=== PATIENT | female | born 1930 | race American Indian/Alaskan Native ===

== ENCOUNTER 2018-09-08 13:43 | Inpatient (IN) | payer MEDICARE, OTHER ==
[2018-09-08] MEDS ORDERED: Sodium Chloride 0.9% 1,000 ML ONE (14:19)
[2018-09-08] MEDS ORDERED: Sodium Chloride 0.9% 1,000 ML IV ONE ×2 (14:20→16:42)
[2018-09-08] MEDS ORDERED: Sodium Chloride 0.9% 1,000 ML IV STA ×2 (14:33→14:35)
[2018-09-08 14:48] LABS: BASO # 0.1 K/uL (0.0-0.2); BASO % 0.5 % (0.0-2.0); EOS # 0.2 K/uL (0.0-0.7); HEMOGLOBIN 8.9 g/dL (11.0-16.0); LYMPH # 1.2 K/uL (1.0-4.3); LYMPH % 5.2 % (20.0-40.0); MEAN CELL VOLUME 79.6 fL (81.0-99.0); MEAN CORPUSCULAR HEMOGLOBIN 25.4 pg (27.0-31.0); MEAN PLATELET VOLUME 8.8 fL (7.2-11.7); MONO # 1.6 K/uL (0.0-0.8); MONO % 6.7 % (0.0-10.0); NEUT % 86.6 % (50.0-75.0); NRBC % 0.1 % (0.0-2.0); PLATELET COUNT 152 K/uL (130-400); RED CELL DISTRIBUTION WIDTH 16.1 % (11.5-14.5)
[2018-09-08 14:51] LABS: WHITE BLOOD COUNT 23.1 K/uL (4.8-10.8)
[2018-09-08 14:58] LABS: VENOUS BLOOD GAS BASE EXCESS -0.2 mmol/L (0.0-2.0); VENOUS BLOOD GAS PCO2 37 mmHg (40-60); VENOUS BLOOD GAS PO2 29 mm/Hg (30-55); VENOUS BLOOD PH 7.42 (7.32-7.43)
--- NOTE | 2018-09-08 15:00 | C.PDOC ---
History Of Present Illness 87 y/o F c PMHx DM p/w hyperglycemia today. Patient only complains of abdominal pain and bloating for the past week and reports nausea and feeling generally unwell. Patient went to [facility] today and was found to have glucose 500+ and sent to ED. Not taking home medications this week due to nausea. Otherwise denies fever, chills, chest pain, dyspnea, dysuria. Patient is poor historian. Time Seen by Provider: 09/08/18 14:14 Chief Complaint (Nursing): Medical Clearance Past Medical History Vital Signs: Last Vital Signs Temp 100.4 F H 09/08/18 14:15 Pulse Resp BP Pulse Ox - Medical History PMH: HTN - [facility] Procedures DX ULTRASOUND-VASCULAR (12/28/13) Family History: States: No Known Family Hx - Social History Hx Alcohol Use: No Hx Substance Use: No - Immunization History Hx Tetanus Toxoid Vaccination: No Hx Influenza Vaccination: No Hx Pneumococcal Vaccination: No Review Of Systems Except As Marked, All Systems Reviewed And Found Negative. Cardiovascular: Negative for: Chest Pain Respiratory: Negative for: Shortness of Breath Physical Exam - Physical Exam Additional Physical Exam Comments: gen nad head nc/at eyes PERRL ENT: mmm neck supple, no rigidity chest no tenderness cv borderline tachycardic lungs cta b/l abd soft, nt, , mass palpable in RUQ, distended skin no rash neuro alert, follows commands extremities no tenderness ED Course And Treatment - Laboratory Results Result Diagrams: 09/08/18 18:18 09/08/18 18:18 - Other Rad CXR X-Ray: Viewed By Me, Read By Radiologist Interpretation: Accession No. : [id number]. Patient Name / ID : SARAH TORRES / [id number]. Exam Date : 09/08/2018 15:57:28 ( Approved ). Study Comment : Sex / Age : F / 87Y. Creator : Carmen Singh MD. Dictator : Carmen Singh MD. Lean Consultant : Rn Gynecology : Carmen Singh MD. Approver2 : Report Date : 09/08/2018 17:10:38. My Comment : . HISTORY: feeling unwell. COMPARISON: None available. TECHNIQUE: Chest, one view. FINDINGS: Patient's chin obscures evaluation of the lung apices. Examination limited by habitus. LUNGS: Patchy right greater than left lower lobe consolidations appear consistent with pneumonia. Please note that chest x-ray has limited sensitivity for the detection of pulmonary masses. PLEURA: Small right pleural effusion. No definite pneumothorax . CARDIOVASCULAR: Cardiomegaly. Dense atherosclerotic calcifications of the aorta. OSSEOUS STRUCTURES: Degenerative changes. VISUALIZED UPPER ABDOMEN: Unremarkable. OTHER FINDINGS: None. IMPRESSION: Right greater than left l ower lobe consolidations appear compatible with pneumonia. Small right pleural effusion. Cardiomegaly. Medical Decision Making Medical Decision Making: EKG NSR 99 bpm, no ST elevations Patient with leukocytosis, HR above 90, lactate 3+, activated CODE SEPSIS. CXR resulted: Accession No. : [id number] Patient Name / ID : SARAH MELISSA / [id number] Exam Date : 09/08/2018 15:57:28 ( Approved ) Study Comment : Sex / Age : F / 87Y Creator : Carmen Singh MD Dictator : Carmen Singh MD Lean Consultant : Rn Gynecology : Carmen Singh MD Approver2 : Report Date : 09/08/2018 17:10:38 My Comment : HISTORY: feeling unwell COMPARISON: None available. TECHNIQUE: Chest, one view. FINDINGS: Patient's chin obscures evaluation of the lung apices. Examination limited by habitus. LUNGS: Patchy right greater than left lower lobe consolidations appear consistent with pneumonia. Please note that chest x-ray has limited sensitivity for the detection of pulmonary masses. PLEURA: Small right pleural effusion. No definite pneumothorax . CARDIOVASCULAR: Cardiomegaly. Dense atherosclerotic calcifications of the aorta. OSSEOUS STRUCTURES: Degenerative changes. VISUALIZED UPPER ABDOMEN: Unremarkable. OTHER FINDINGS: None. IMPRESSION: Right greater than left lower lobe consolidations appear compatible with pneumonia. Small right pleural effusion. Cardiomegaly. CT Abdomen and Pelvis Results Accession No. : [id number] Patient Name / ID : SARAH TORRES / [id number] Exam Date : 09/08/2018 17:49:27 ( Approved ) Study Comment : Sex / Age : F / 87Y Creator : [place] Dictator : Carmen Singh MD Lean Consultant : Rn Gynecology : Carmen Singh MD Approver2 : Report Date : 09/08/2018 17:56:29 My Comment : PROCEDURE: CT Abdomen and Pelvis without Oral or IV contrast. HISTORY: abd pain, nausea COMPARISON: None available. TECHNIQUE: Contiguous axial images of the abdomen and pelvis. No oral or IV contrast administered. Coronal and Sagittal reformats generated and reviewed. Radiation dose: Total exam DLP = 1038.82 mGy-cm. This CT exam was performed using one or more of the following dose reduction techniques: Automated exposure control, adjustment of the mA and/or kV according to patient size, and/or use of iterative reconstruction technique. FINDINGS: There is limited evaluation of the solid organs without the administration of IV contrast. LOWER THORAX: Right basilar consolidation and small effusion. Trace effusion on the left with mild left basilar atelectasis. Small nodular opacities evident within the right middle lobe measuring maximally 4 mm. Partially imaged cardiomegaly. Coronary artery calcifications. 15 mm right cardiophrenic lymph node. LIVER: Heterogeneous appearance of the liver with large right hepatic lobe hypodense mass measuring approximately 7.4 x 7.1 cm. Nodular hepatic contour. Small to moderate perihepatic ascites extending into the right pericolic gutter. 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 PANCREAS: Atrophic. SPLEEN: Perisplenic ascites. Otherwise grossly unremarkable unenhanced appearance. ADRENALS: Left adrenal gland hypertrophy. Unremarkable unenhanced appearance of the right adrenal gland. KIDNEYS AND URETERS: No hydronephrosis or obstructing renal calculus. Bilateral renal atrophy. BLADDER: The urinary bladder appears unremarkable. REPRODUCTIVE: Heterogeneous appearance of an atrophic uterus which contains coarse calcifications consistent with degenerating fibroids. APPENDIX: Not identified. BOWEL: The stomach is nondistended. Lack of oral contrast limits evaluation for bowel pathology. The bowel loops appear within normal limits of caliber without evidence of intestinal obstruction. PERITONEUM: Small pelvic free fluid. No definite free air. LYMPH NODES: No bulky lymphadenopathy identified. VASCULATURE: Atherosclerotic calcifications of the aorta. No aortic aneurysm. BONES: Osseous demineralization. Degenerative changes. OTHER FINDINGS: Extensive nodular soft tissue worrisome for carcinomatosis particularly within the right upper quadrant anterior to the liver. IMPRESSION: Limited noncontrast study. Recommend follow-up imaging with oral and IV contrast. 7.4 x 7.1 cm right hepatic lobe hypodense mass worrisome for malignant neoplasm. Heterogeneous hepatic parenchyma. Nodular hepatic contour; correlate clinically for cirrhosis. Extensive nodular soft tissue worrisome for carcinomatosis particularly within the right upper quadrant anterior to the liver. Distended gallbladder with evidence of peripheral calcification within its wall which may be seen in the setting of porcelain gallbladder. Right upper quadrant ultrasound recommended. Left adrenal gland hypertrophy. Abdominal and pelvic ascites as above. 15 mm right cardiophrenic lymph node. Right basilar consolidation and small effusion. Trace effusion on the left with mild left basilar atelectasis. Small nodular opacities evident within the right middle lobe measuring maximally 4 mm. Heterogeneous appearance of an atrophic uterus which contains coarse ca lcifications consistent with degenerating fibroids. Pelvic ultrasound recommended. Additional findings as above. After 3 L and insulin, glucose, lactate improved. Dr. Dooley recommends admission to telemetry. Dr. Gan accepts patient to his service. Disposition - Disposition Disposition: HOSPITALIZED Disposition Time: 16:30 Condition: GUARDED Forms: [place] (Irish) - Clinical Impression Clinical Impression: Pneumonia, UTI (urinary tract infection), Sepsis, Liver cancer
[2018-09-08] MEDS ORDERED: Cefepime 1 GM in Sodium Chloride 0.9% 50 ML IVPB ONE (15:05)
[2018-09-08] MEDS ORDERED: Vancomycin 1 gm/NS 200 ml 1 GM/200 ML BAG IVPB STA (15:05)
[2018-09-08 15:15] LABS: CK-MB 1.01 ng/mL (0.0-3.38); TROPONIN I 0.031 ng/mL (0.00-0.120)
[2018-09-08 15:23] LABS: ALBUMIN 3.6 g/dL (3.5-5.0); CALCIUM 9.6 mg/dl (8.6-10.4)
[2018-09-08] MEDS ORDERED: Vancomycin 1 GM 1 GM/250 ML BAG IVPB ONE (15:30)
[2018-09-08] MEDS ORDERED: Insulin Human Regular 100 UNIT in Sodium Chloride 0.9% 99 ML IV SCH (15:30)
[2018-09-08 15:36] LABS: SQUAMOUS EPITHIAL 17 /hpf (0-5); URINE BACTERIA MANY (<OCC); URINE BILIRUBIN NEGATIVE (NEGATIVE); URINE BLOOD 1+ (NEGATIVE); URINE CLARITY Hazy (Clear); URINE COLOR Amber (YELLOW); URINE GLUCOSE (UA) 3+ mg/dL (Normal); URINE HYALINE CAST >20 /lpf (0-2); URINE LEUKOCYTE ESTERASE 3+ Leu/uL (Negative); URINE PROTEIN NEGATIVE (NEGATIVE); WBC CLUMPS FEW /hpf
[2018-09-08 15:41] LABS: INR 1.6
[2018-09-08] MEDS ORDERED: (Novolin R) Insulin Human Regular 100 units/ml vial IVP STA (15:44)
[2018-09-08 15:49] LABS: BANDS 1 % (0-2); EOSINOPHIL 1 % (0-4); LYMPHOCYTE 4 % (20-40); TOTAL CELLS COUNTED 100
[2018-09-08 15:50] LABS: MONOCYTE 7 % (0-10); NEUTROPHIL 87 % (50-75); PLATELET ESTIMATE NORMAL (NORMAL)
[2018-09-08 15:51] LABS: ANISOCYTOSIS SLIGHT; HYPOCHROMIC SLIGHT; POIKILOCYTOSIS SLIGHT
[2018-09-08] MEDS ORDERED: (Novolin R) Insulin Human Regular 100 units/ml vial ONE (15:53)
--- NOTE | 2018-09-08 17:14 | RAD ---
HISTORY: feeling unwell COMPARISON: None available. TECHNIQUE: Chest, one view. FINDINGS: Patient's chin obscures evaluation of the lung apices. Examination limited by habitus. LUNGS: Patchy right greater than left lower lobe consolidations appear consistent with pneumonia. Please note that chest x-ray has limited sensitivity for the detection of pulmonary masses. PLEURA: Small right pleural effusion. No definite pneumothorax . CARDIOVASCULAR: Cardiomegaly. Dense atherosclerotic calcifications of the aorta. OSSEOUS STRUCTURES: Degenerative changes. VISUALIZED UPPER ABDOMEN: Unremarkable. OTHER FINDINGS: None. IMPRESSION: Right greater than left lower lobe consolidations appear compatible with pneumonia. Small right pleural effusion. Cardiomegaly.
[2018-09-08 17:46] LABS: VENOUS BLOOD GAS BASE EXCESS -3.5 mmol/L (0.0-2.0); VENOUS BLOOD GAS PCO2 44 mmHg (40-60); VENOUS BLOOD GAS PO2 36 mm/Hg (30-55); VENOUS BLOOD PH 7.32 (7.32-7.43)
[2018-09-08 18:23] LABS: BASO # 0.1 K/uL (0.0-0.2); BASO % 0.5 % (0.0-2.0); EOS # 0.3 K/uL (0.0-0.7); EOS % 1.3 % (0.0-4.0); HEMOGLOBIN 7.5 g/dL (11.0-16.0); LYMPH # 1.6 K/uL (1.0-4.3); LYMPH % 7.1 % (20.0-40.0); MEAN CELL VOLUME 78.4 fL (81.0-99.0); MEAN CORPUSCULAR HEMOGLOBIN 24.5 pg (27.0-31.0); MEAN CORPUSCULAR HGB CONC 31.2 g/dL (33.0-37.0); MEAN PLATELET VOLUME 8.2 fL (7.2-11.7); MONO % 8.9 % (0.0-10.0); NEUT # 18.5 K/uL (1.8-7.0); NEUT % 82.2 % (50.0-75.0); RBC 3.07 Mil/uL (3.80-5.20); RED CELL DISTRIBUTION WIDTH 16.2 % (11.5-14.5); WHITE BLOOD COUNT 22.5 K/uL (4.8-10.8)
--- NOTE | 2018-09-08 18:36 | CT ---
PROCEDURE: CT Abdomen and Pelvis without Oral or IV contrast. HISTORY: abd pain, nausea COMPARISON: None available. TECHNIQUE: Contiguous axial images of the abdomen and pelvis. No oral or IV contrast administered. Coronal and Sagittal reformats generated and reviewed. Radiation dose: Total exam DLP = 1038.82 mGy-cm. This CT exam was performed using one or more of the following dose reduction techniques: Automated exposure control, adjustment of the mA and/or kV according to patient size, and/or use of iterative reconstruction technique. FINDINGS: There is limited evaluation of the solid organs without the administration of IV contrast. LOWER THORAX: Right basilar consolidation and small effusion. Trace effusion on the left with mild left basilar atelectasis. Small nodular opacities evident within the right middle lobe measuring maximally 4 mm. Partially imaged cardiomegaly. Coronary artery calcifications. 15 mm right cardiophrenic lymph node. LIVER: Heterogeneous appearance of the liver with large right hepatic lobe hypodense mass measuring approximately 7.4 x 7.1 cm. Nodular hepatic contour. Small to moderate perihepatic ascites extending into the right pericolic gutter. 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 PANCREAS: Atrophic. SPLEEN: Perisplenic ascites. Otherwise grossly unremarkable unenhanced appearance. ADRENALS: Left adrenal gland hypertrophy. Unremarkable unenhanced appearance of the right adrenal gland. KIDNEYS AND URETERS: No hydronephrosis or obstructing renal calculus. Bilateral renal atrophy. BLADDER: The urinary bladder appears unremarkable. REPRODUCTIVE: Heterogeneous appearance of an atrophic uterus which contains coarse calcifications consistent with degenerating fibroids. APPENDIX: Not identified. BOWEL: The stomach is nondistended. Lack of oral contrast limits evaluation for bowel pathology. The bowel loops appear within normal limits of caliber without evidence of intestinal obstruction. PERITONEUM: Small pelvic free fluid. No definite free air. LYMPH NODES: No bulky lymphadenopathy identified. VASCULATURE: Atherosclerotic calcifications of the aorta. No aortic aneurysm. BONES: Osseous demineralization. Degenerative changes. OTHER FINDINGS: Extensive nodular soft tissue worrisome for carcinomatosis particularly within the right upper quadrant anterior to the liver. IMPRESSION: Limited noncontrast study. Recommend follow-up imaging with oral and IV contrast. 7.4 x 7.1 cm right hepatic lobe hypodense mass worrisome for malignant neoplasm. Heterogeneous hepatic parenchyma. Nodular hepatic contour; correlate clinically for cirrhosis. Extensive nodular soft tissue worrisome for carcinomatosis particularly within the right upper quadrant anterior to the liver. Distended gallbladder with evidence of peripheral calcification within its wall which may be seen in the setting of porcelain gallbladder. Right upper quadrant ultrasound recommended. Left adrenal gland hypertrophy. Abdominal and pelvic ascites as above. 15 mm right cardiophrenic lymph node. Right basilar consolidation and small effusion. Trace effusion on the left with mild left basilar atelectasis. Small nodular opacities evident within the right middle lobe measuring maximally 4 mm. Heterogeneous appearance of an atrophic uterus which contains coarse calcifications consistent with degenerating fibroids. Pelvic ultrasound recommended. Additional findings as above.
[2018-09-08 18:47] LABS: ALB/GLOB RATIO 0.9 (1.0-2.1); ALBUMIN 2.8 g/dL (3.5-5.0); CALCIUM 8.4 mg/dl (8.6-10.4)
[2018-09-08] MEDS: Sodium Chloride 0.45% 1,000 ML IV SCH (22:15)
[2018-09-08] MEDS: (Novolog) Insulin Aspart, Recombinant 100 u/ml 10 ml vial SC SCH (23:12)
[2018-09-08] MEDS: (Lantus) Insulin Glargine, Recombinant SC SCH (23:12)
[2018-09-08] MEDS: Azithromycin 500mg/250ML NS 500 MG/250 ML BAG IVPB SCH (23:14)
--- NOTE | 2018-09-09 01:03 | CP.PCM.CON ---
<Uday Nicole - Last Filed: 09/09/18 09:35> History of Present Illness - History of Present Illness History of Present Illness: Hepatobilliary Surgery Consult Note- Dr. Fisher Reason for Consult: Liver Mass 87F pmhx significant for HTN, DM admitted to [facility] for malaise, Hype rglycemia, pneumonia, and UTI. During hospital work up patient underwent a CT scan where a liver mass was found measuring approx 7x7cm. Patient admits to mild abd pain, occasional nausea, no vomiting. + Flatus and BM. Patient is unaware of any history of liver disease or pathology. Within the last 6 months patient did go on a trip to the [facility]. Denies associated fevers, chest pain, s hortness of breath, RUQ abdominal pain, BRBPR. Patient last colonoscopy was > 15 years ago. Per patient no associated problems PMH: stated above PSH: ALL: NKDA SocialHx: lives at home with grandchildren. Denies tobacco, etoh, recreational drug use FH: denies associated familial Ca. Review of Systems - Review of Systems All systems: reviewed and no additional remarkable complaints except - Constitutional Constitutional: As Per HPI Past Patient History - Past Medical History & Family History Past Medical History?: Yes - Past Social History Smoking Status: Never Smoked - CARDIAC Hx Hypertension: Yes - PULMONARY Hx Respiratory Disorders: No - NEUROLOGICAL Hx Neurological Disorder: No - HEENT Hx HEENT Problems: No - RENAL Hx Chronic Kidney Disease: No - ENDOCRINE/METABOLIC Hx Diabetes Mellitus Type 2: Yes - HEMATOLOGICAL/ONCOLOGICAL Hx Blood Disorders: No - INTEGUMENTARY Hx Dermatological Problems: No - MUSCULOSKELETAL/RHEUMATOLOGICAL Hx Musculoskeletal Disorders: No - GASTROINTESTINAL Hx Gastrointestinal Disorders: No - GENITOURINARY/GYNECOLOGICAL Hx Genitourinary Disorders: No - PSYCHIATRIC Hx Psychophysiologic Disorder: No Hx Substance Use: No - SURGICAL HISTORY Hx Surgeries: No - ANESTHESIA Hx Anesthesia: No Hx Anesthesia Reactions: No Meds Allergies/Adverse Reactions: Allergies Allergy/AdvReac Type Severity Reaction Status Date / Time No Known Allergies Allergy Verified 09/08/18 14:00 - Medications Medications: Current Medications Carvedilol (Coreg) 25 mg PO BID [facility] Sodium Chloride (Sodium Chloride 0.45%) 1,000 mls @ 80 mls/hr IV .[id number] [facility] Last Admin: 09/08/18 22:15 Dose: 80 mls/hr Ceftriaxone Sodium 1 gm/ (Sodium Chloride) 100 mls @ 100 mls/hr IVPB DAILY ERIN; Protocol Azithromycin (Zithromax 500mg In Ns Addvantage) 500 mg in 250 mls @ 167 mls/hr IVPB Q24H ERIN; Protocol Last Admin: 09/08/18 23:14 Dose: 167 mls/hr Insulin Aspart (Novolog) 0 unit SC ACHS ERIN; Protocol Last Admin: 09/08/18 23:12 Dose: 3 u Insulin Glargine (Lantus) 10 unit SC Q12H ERIN Last Admin: 09/08/18 23:12 Dose: 10 u Physical Exam - Constitutional Appears: Non-toxic, No Acute Distress - Head Exam Head Exam: ATRAUMATIC - Eye Exam Eye Exam: EOMI. absent: Scleral icterus - Neck Exam Neck exam: Positive for: Normal Inspection - Respiratory Exam Respiratory Exam: NORMAL BREATHING PATTERN. absent: Accessory Muscle Use, Chest Wall Tenderness, Respiratory Distress Additional comments: on 2L NC - Cardiovascular Exam Cardiovascular Exam: absent: Bradycardia, Tachycardia - GI/Abdominal Exam GI & Abdominal Exam: Distended (mildly distended, baseline), Soft. absent: Tenderness - Back Exam Back exam: absent: CVA tenderness (L), CVA tenderness (R) - Neurological Exam Neurological exam: Alert, Oriented x3 - Psychiatric Exam Psychiatric exam: Normal Affect - Skin Skin Exam: Intact, Warm Results - Vital Signs Recent Vital Signs: Last Vital Signs Temp 97.9 F 09/08/18 20:31 Pulse 81 09/08/18 21:00 Resp 20 09/08/18 20:31 BP 176/75 H 09/08/18 23:11 Pulse Ox 97 09/08/18 20:31 - Labs Result Diagrams: 09/09/18 08:21 09/09/18 08:21 Labs: Laboratory Results - last 24 hr 09/08/18 09/08/18 09/08/18 14:08 14:10 14:44 WBC 23.1 H RBC 3.50 L Hgb 8.9 L Hct 27.8 L MCV 79.6 L MCH 25.4 L MCHC 32.0 L RDW 16.1 H Plt Count 152 MPV 8.8 Neut % (Auto) 86.6 H Lymph % (Auto) 5.2 L Lucas % (Auto) 6.7 Eos % (Auto) 1.0 Baso % (Auto) 0.5 Neut # (Auto) 20.0 H Lymph # (Auto) 1.2 Lucas # (Auto) 1.6 H Eos # (Auto) 0.2 Baso # (Auto) 0.1 Neutrophils % (Manual) 87 H Band Neutrophils % 1 Lymphocytes % (Manual) 4 L Monocytes % (Manual) 7 Eosinophils % (Manual) 1 Platelet Estimate Normal Hypochromasia (manual) Slight Poikilocytosis (manual Slight Anisocytosis (manual) Slight PT INR APTT pO2 VBG pH VBG pCO2 VBG HCO3 VBG Total CO2 VBG O2 Sat (Calc) VBG Base Excess VBG Potassium Glucose Lactate FiO2 Crit Value Called To Crit Value Called By Crit Value Read Back Blood Gas Notified Time Sodium Potassium Chloride Carbon Dioxide Anion Gap BUN Creatinine Est GFR ( Amer) Est GFR (Non-Af Amer) POC Glucose (mg/dL) > 500 H* > 500 H* Random Glucose Calcium Phosphorus Magnesium Total Bilirubin AST ALT Alkaline Phosphatase Total Creatine Kinase CK-MB (Mass) Troponin I Total Protein Albumin Globulin Albumin/Globulin Ratio Lipase Venous Blood Potassium Urine Color Urine Clarity Urine pH Ur Specific [place] Urine Protein Urine Glucose (UA) Urine Ketones Urine Blood Urine Nitrate Urine Bilirubin Urine Urobilinogen Ur Leukocyte Esterase Urine WBC (Auto) Urine RBC (Auto) Urine WBC Clumps (Auto) Ur Squamous Epith Cells Urine Bacteria Hyaline Casts B-Hydroxybutyrate Influenza Typ A,B (EIA) Blood Type Antibody Screen 09/08/18 09/08/18 09/08/18 14:44 14:44 14:44 WBC RBC Hgb Hct MCV MCH MCHC RDW Plt Count MPV Neut % (Auto) Lymph % (Auto) Lucas % (Auto) Eos % (Auto) Baso % (Auto) Neut # (Auto) Lymph # (Auto) Lucas # (Auto) Eos # (Auto) Baso # (Auto) Neutrophils % (Manual) Band Neutrophils % Lymphocytes % (Manual) Monocytes % (Manual) Eosinophils % (Manual) Platelet Estimate Hypochromasia (manual) Poikilocytosis (manual Anisocytosis (manual) PT 17.0 H INR 1.6 APTT 30 pO2 VBG pH VBG pCO2 VBG HCO3 VBG Total CO2 VBG O2 Sat (Calc) VBG Base Excess VBG Potassium Glucose Lactate FiO2 Crit Value Called To Crit Value Called By Crit Value Read Back Blood Gas Notified Time Sodium 132 Potassium 5.3 H Chloride 99 Carbon Dioxide 22 Anion Gap 16 BUN 35 H Creatinine 1.8 H Est GFR ( Amer) 32 Est GFR (Non-Af Amer) 27 POC Glucose (mg/dL) Random Glucose 588 H* Calcium 9.6 Phosphorus 2.9 Magnesium 2.2 Total Bilirubin 1.0 AST 29 ALT 24 Alkaline Phosphatase 324 H Total Creatine Kinase 54 CK-MB (Mass) 1.01 Troponin I 0.0310 Total Protein 7.1 Albumin 3.6 Globulin 3.6 Albumin/Globulin Ratio 1.0 Lipase 25 Venous Blood Potassium Urine Color Urine Clarity Urine pH Ur Specific [place] Urine Protein Urine Glucose (UA) Urine Ketones Urine Blood Urine Nitrate Urine Bilirubin Urine Urobilinogen Ur Leukocyte Esterase Urine WBC (Auto) Urine RBC (Auto) Urine WBC Clumps (Auto) Ur Squamous Epith Cells Urine Bacteria Hyaline Casts B-Hydroxybutyrate 1.04 H Influenza Typ A,B (EIA) Blood Type O POSITIVE Antibody Screen Negative 09/08/18 09/08/18 09/08/18 14:50 15:13 15:13 WBC RBC Hgb Hct MCV MCH MCHC RDW Plt Count MPV Neut % (Auto) Lymph % (Auto) Lucas % (Auto) Eos % (Auto) Baso % (Auto) Neut # (Auto) Lymph # (Auto) Lucas # (Auto) Eos # (Auto) Baso # (Auto) Neutrophils % (Manual) Band Neutrophils % Lymphocytes % (Manual) Monocytes % (Manual) Eosinophils % (Manual) Platelet Estimate Hypochromasia (manual) Poikilocytosis (manual Anisocytosis (manual) PT INR APTT pO2 29 L VBG pH 7.42 VBG pCO2 37 L VBG HCO3 23.7 VBG Total CO2 25.1 VBG O2 Sat (Calc) 52.3 VBG Base Excess -0.2 L VBG Potassium 5.3 H Glucose 605 H* Lactate 3.1 H FiO2 Crit Value Called To Kemal batres md Crit Value Called By Neisha palacios strap setter Crit Value Read Back Y Blood Gas Notified Time 1458 Sodium 134.0 Potassium Chloride 102.0 Carbon Dioxide Anion Gap BUN Creatinine Est GFR ( Amer) Est GFR (Non-Af Amer) POC Glucose (mg/dL) Random Glucose Calcium Phosphorus Magnesium Total Bilirubin AST ALT Alkaline Phosphatase Total Creatine Kinase CK-MB (Mass) Troponin I Total Protein Albumin Globulin Albumin/Globulin Ratio Lipase Venous Blood Potassium 5.3 H Urine Color Brisa Urine Clarity Hazy Urine pH 5.0 Ur Specific [place] 1.017 Urine Protein Negative Urine Glucose (UA) 3+ H Urine Ketones Trace Urine Blood 1+ H Urine Nitrate Negative Urine Bilirubin Negative Urine Urobilinogen 4.0 H Ur Leukocyte Esterase 3+ H Urine WBC (Auto) 51 H Urine RBC (Auto) 11 H Urine WBC Clumps (Auto) Few H Ur Squamous Epith Cells 17 H Urine Bacteria Many H Hyaline Casts >20 H B-Hydroxybutyrate Influenza Typ A,B (EIA) Negative for flu a/b Blood Type Antibody Screen 09/08/18 09/08/18 09/08/18 17:20 17:40 18:18 WBC RBC Hgb Hct MCV MCH MCHC RDW Plt Count MPV Neut % (Auto) Lymph % (Auto) Lucas % (Auto) Eos % (Auto) Baso % (Auto) Neut # (Auto) Lymph # (Auto) Lucas # (Auto) Eos # (Auto) Baso # (Auto) Neutrophils % (Manual) Band Neutrophils % Lymphocytes % (Manual) Monocytes % (Manual) Eosinophils % (Manual) Platelet Estimate Hypochromasia (manual) Poikilocytosis (manual Anisocytosis (manual) PT INR APTT pO2 36 VBG pH 7.32 VBG pCO2 44 VBG HCO3 21.3 VBG Total CO2 24.1 VBG O2 Sat (Calc) 62.6 VBG Base Excess -3.5 L VBG Potassium 4.1 Glucose 288 H Lactate 2.5 H FiO2 21.0 Crit Value Called To Crit Value Called By Crit Value Read Back Blood Gas Notified Time Sodium 138.0 136 Potassium 4.6 Chloride 111.0 H 106 Carbon Dioxide 23 Anion Gap 11 BUN 34 H Creatinine 1.5 H Est GFR ( Amer) 40 Est GFR (Non-Af Amer) 33 POC Glucose (mg/dL) 345 H Random Glucose 278 H D Calcium 8.4 L Phosphorus 3.0 Magnesium 2.2 Total Bilirubin 0.6 AST 24 ALT 18 Alkaline Phosphatase 232 H D Total Creatine Kinase CK-MB (Mass) Troponin I Total Protein 5.9 L Albumin 2.8 L D Globulin 3.0 Albumin/Globulin Ratio 0.9 L Lipase Venous Blood Potassium 4.1 Urine Color Urine Clarity Urine pH Ur Specific [place] Urine Protein Urine Glucose (UA) Urine Ketones Urine Blood Urine Nitrate Urine Bilirubin Urine Urobilinogen Ur Leukocyte Esterase Urine WBC (Auto) Urine RBC (Auto) Urine WBC Clumps (Auto) Ur Squamous Epith Cells Urine Bacteria Hyaline Casts B-Hydroxybutyrate 0.14 Influenza Typ A,B (EIA) Blood Type Antibody Screen 09/08/18 09/08/18 18:18 20:59 WBC 22.5 H RBC 3.07 L Hgb 7.5 L Hct 24.1 L MCV 78.4 L MCH 24.5 L MCHC 31.2 L RDW 16.2 H Plt Count 126 L D MPV 8.2 Neut % (Auto) 82.2 H Lymph % (Auto) 7.1 L Lucas % (Auto) 8.9 Eos % (Auto) 1.3 Baso % (Auto) 0.5 Neut # (Auto) 18.5 H Lymph # (Auto) 1.6 Lucas # (Auto) 2.0 H Eos # (Auto) 0.3 Baso # (Auto) 0.1 Neutrophils % (Manual) Band Neutrophils % Lymphocytes % (Manual) Monocytes % (Manual) Eosinophils % (Manual) Platelet Estimate Hypochromasia (manual) Poikilocytosis (manual Anisocytosis (manual) PT INR APTT pO2 VBG pH VBG pCO2 VBG HCO3 VBG Total CO2 VBG O2 Sat (Calc) VBG Base Excess VBG Potassium Glucose Lactate FiO2 Crit Value Called To Crit Value Called By Crit Value Read Back Blood Gas Notified Time Sodium Potassium Chloride Carbon Dioxide Anion Gap BUN Creatinine Est GFR ( Amer) Est GFR (Non-Af Amer) POC Glucose (mg/dL) 353 H Random Glucose Calcium Phosphorus Magnesium Total Bilirubin AST ALT Alkaline Phosphatase Total Creatine Kinase CK-MB (Mass) Troponin I Total Protein Albumin Globulin Albumin/Globulin Ratio Lipase Venous Blood Potassium Urine Color Urine Clarity Urine pH Ur Specific [place] Urine Protein Urine Glucose (UA) Urine Ketones Urine Blood Urine Nitrate Urine Bilirubin Urine Urobilinogen Ur Leukocyte Esterase Urine WBC (Auto) Urine RBC (Auto) Urine WBC Clumps (Auto) Ur Squamous Epith Cells Urine Bacteria Hyaline Casts B-Hydroxybutyrate Influenza Typ A,B (EIA) Blood Type Antibody Screen Assessment & Plan - Assessment and Plan (Free Text) Assessment: 87F w/ admitted for UTI and Pneumonia; surgery consulted for Liver mass Plan: - CT findings consistent with asymmetrical GB wall calcifications, omental caking and associated liver mass, will need triple phase CT - 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 Munoz PGY2 <Michel Shay - Last Filed: 09/12/18 07:43> Meds - Medications Medications: Current Medications Carvedilol (Coreg) 25 mg PO BID ERIN Last Admin: 09/11/18 18:44 Dose: 25 mg Docusate Sodium (Colace) 100 mg PO BID ERIN Last Admin: 09/11/18 17:38 Dose: 100 mg Heparin Sodium (Porcine) (Heparin) 5,000 units SC Q12 ERIN Last Admin: 09/11/18 21:42 Dose: 5,000 units Azithromycin (Zithromax 500mg In Ns Addvantage) 500 mg in 250 mls @ 167 mls/hr IVPB Q24H ERIN; Protocol Last Admin: 09/11/18 23:25 Dose: 167 mls/hr Metronidazole (Flagyl) 500 mg in 100 mls @ 100 mls/hr IVPB Q8H ERIN; Protocol Last Admin: 09/12/18 06:01 Dose: 100 mls/hr Meropenem 500 mg/ Sodium (Chloride) 100 mls @ 100 mls/hr IVPB Q8H ERIN; Protocol Last Admin: 09/12/18 04:36 Dose: 100 mls/hr Insulin Aspart (Novolog) 0 unit SC ACHS ERIN; Protocol Last Admin: 09/12/18 07:41 Dose: Not Given Insulin Glargine (Lantus) 10 unit SC Q12H ERIN Last Admin: 09/11/18 21:42 Dose: Not Given Polyethylene Glycol (Miralax) 17 gm PO BID ERIN Last Admin: 09/11/18 17:38 Dose: 17 gm Results - Vital Signs Recent Vital Signs: Last Vital Signs Temp 98.0 F 09/12/18 04:00 Pulse 69 09/12/18 04:12 Resp 20 09/12/18 04:00 BP 155/79 H 09/12/18 04:00 Pulse Ox 94 L 09/12/18 04:00 - Labs Result Diagrams: 09/11/18 06:54 09/11/18 06:54 Labs: Laboratory Results - last 24 hr 09/09/18 09/09/18 09/09/18 10:45 10:45 10:45 Neutrophils % (Manual) Lymphocytes % (Manual) Monocytes % (Manual) Eosinophils % (Manual) Platelet Estimate Hypochromasia (manual) Poikilocytosis (manual Anisocytosis (manual) Sodium Potassium Chloride Carbon Dioxide Anion Gap BUN Creatinine Est GFR ( Amer) Est GFR (Non-Af Amer) POC Glucose (mg/dL) Random Glucose Calcium Total Bilirubin Direct Bilirubin AST ALT Alkaline Phosphatase Total Protein Albumin Globulin Albumin/Globulin Ratio Serum Immunofixation Not detected DEB Screen Negative Anti-Mitochondrial Ab Negative Anti-Smooth Muscle Ab Negative Hep Bs Antibody Negative 09/11/18 09/11/18 09/11/18 06:54 06:54 16:18 Neutrophils % (Manual) 87 H Lymphocytes % (Manual) 7 L Monocytes % (Manual) 5 Eosinophils % (Manual) 3 Platelet Estimate Normal Hypochromasia (manual) Slight Poikilocytosis (manual Slight Anisocytosis (manual) Slight Sodium 135 Potassium 4.4 Chloride 108 H Carbon Dioxide 21 L Anion Gap 11 BUN 35 H Creatinine 1.3 H Est GFR ( Amer) 47 Est GFR (Non-Af Amer) 39 POC Glucose (mg/dL) 136 H Random Glucose 123 H Calcium 9.1 Total Bilirubin 0.7 Direct Bilirubin 0.4 AST 38 H ALT 23 Alkaline Phosphatase 245 H Total Protein 6.0 L Albumin 2.9 L Globulin 3.2 Albumin/Globulin Ratio 0.9 L Serum Immunofixation DEB Screen Anti-Mitochondrial Ab Anti-Smooth Muscle Ab Hep Bs Antibody 09/11/18 17:15 Neutrophils % (Manual) Lymphocytes % (Manual) Monocytes % (Manual) Eosinophils % (Manual) Platelet Estimate Hypochromasia (manual) Poikilocytosis (manual Anisocytosis (manual) Sodium Potassium Chloride Carbon Dioxide Anion Gap BUN Creatinine Est GFR ( Amer) Est GFR (Non-Af Amer) POC Glucose (mg/dL) 127 H Random Glucose Calcium Total Bilirubin Direct Bilirubin AST ALT Alkaline Phosphatase Total Protein Albumin Globulin Albumin/Globulin Ratio Serum Immunofixation DEB Screen Anti-Mitochondrial Ab Anti-Smooth Muscle Ab Hep Bs Antibody Assessment & Plan - Assessment and Plan (Free Text) Plan: All medical record entries made by the resident were at my direction. I have reviewed the chart and agree that the record accurately reflects my personal performance of the history, physical exam, and medical decision making.
[2018-09-09] MEDS: (Novolog) Insulin Aspart, Recombinant 100 u/ml 10 ml vial SC SCH ×4 (08:00→21:59)
[2018-09-09 08:26] LABS: MEAN CELL VOLUME 79.6 fL (81.0-99.0); MEAN CORPUSCULAR HEMOGLOBIN 25.5 pg (27.0-31.0); MEAN PLATELET VOLUME 9.1 fL (7.2-11.7); RBC 3.13 Mil/uL (3.80-5.20); RED CELL DISTRIBUTION WIDTH 16.6 % (11.5-14.5)
[2018-09-09 08:40] LABS: IRON 32 ug/dL (37-170)
[2018-09-09 08:45] LABS: ALB/GLOB RATIO 0.9 (1.0-2.1); ALBUMIN 2.8 g/dL (3.5-5.0); BILIRUBIN,DIRECT 0.5 mg/dL (0.0-0.4); CALCIUM 9.1 mg/dl (8.6-10.4)
[2018-09-09 08:49] LABS: % IRON SATURATION 15 (20-55); TOTAL IRON BINDING CAPACITY 217 ug/dL (250-450)
--- NOTE | 2018-09-09 09:04 | CP.PCM.CON ---
<María Sanabria - Last Filed: 09/09/18 11:35> History of Present Illness - History of Present Illness History of Present Illness: Gastroenterology Fellow Fellow/PGY6 Consult Note 87 year old female with PMH of HTN, DM, and Obesity presenting with bloating and weakness. Patient notes bloating, loss of appetite, and progressive weakness for the last four days. She notes evaluation with her PCP yesterday and recommendation for ER evaluation. Denies chest pain, shortness of breath, abdominal pain, diarrhea, constipation, melena, hemtochezia, hematemesis, or unintentional weight loss. Prior colonoscopy endorsed over fifteen years ago to be normal. Family History- denies liver disease, liver cancer, stomach cancer, colon cancer Social History- denies tobacco, alcohol, or illicit drug use Surgical History- C-Sectionx2 Past Patient History - Past Medical History & Family History Past Medical History?: Yes - Past Social History Smoking Status: Never Smoked - CARDIAC Hx Hypertension: Yes - PULMONARY Hx Respiratory Disorders: No - NEUROLOGICAL Hx Neurological Disorder: No - HEENT Hx HEENT Problems: No - RENAL Hx Chronic Kidney Disease: No - ENDOCRINE/METABOLIC Hx Diabetes Mellitus Type 2: Yes - HEMATOLOGICAL/ONCOLOGICAL Hx Blood Disorders: No - INTEGUMENTARY Hx Dermatological Problems: No - MUSCULOSKELETAL/RHEUMATOLOGICAL Hx Musculoskeletal Disorders: No - GASTROINTESTINAL Hx Gastrointestinal Disorders: No - GENITOURINARY/GYNECOLOGICAL Hx Genitourinary Disorders: No - PSYCHIATRIC Hx Psychophysiologic Disorder: No Hx Substance Use: No - SURGICAL HISTORY Hx Surgeries: No - ANESTHESIA Hx Anesthesia: No Hx Anesthesia Reactions: No Meds Allergies/Adverse Reactions: Allergies Allergy/AdvReac Type Severity Reaction Status Date / Time No Known Allergies Allergy Verified 09/08/18 14:00 - Medications Medications: Current Medications Carvedilol (Coreg) 25 mg PO BID ERIN Sodium Chloride (Sodium Chloride 0.45%) 1,000 mls @ 80 mls/hr IV .[id number] ERIN Last Admin: 09/08/18 22:15 Dose: 80 mls/hr Ceftriaxone Sodium 1 gm/ (Sodium Chloride) 100 mls @ 100 mls/hr IVPB DAILY ERIN; Protocol Azithromycin (Zithromax 500mg In Ns Addvantage) 500 mg in 250 mls @ 167 mls/hr IVPB Q24H ERIN; Protocol Last Admin: 04/19/19 23:14 Dose: 167 mls/hr Insulin Aspart (Novolog) 0 unit SC ACHS ERIN; Protocol Last Admin: 09/08/18 23:12 Dose: 3 u Insulin Glargine (Lantus) 10 unit SC Q12H [facility] Last Admin: 09/08/18 23:12 Dose: 10 u Results - Vital Signs Recent Vital Signs: Last Vital Signs Temp 97.8 F 09/09/18 07:07 Pulse 64 09/09/18 07:07 Resp 20 09/09/18 07:07 BP 158/72 H 09/09/18 07:07 Pulse Ox 95 09/09/18 07:07 - Labs Result Diagrams: 09/09/18 08:21 09/09/18 08:21 Labs: Laboratory Results - last 24 hr 09/08/18 09/08/18 09/08/18 14:08 14:10 14:44 WBC 23.1 H RBC 3.50 L Hgb 8.9 L Hct 27.8 L MCV 79.6 L MCH 25.4 L MCHC 32.0 L RDW 16.1 H Plt Count 152 MPV 8.8 Neut % (Auto) 86.6 H Lymph % (Auto) 5.2 L [place] % (Auto) 6.7 Eos % (Auto) 1.0 Baso % (Auto) 0.5 Neut # (Auto) 20.0 H Lymph # (Auto) 1.2 [place] # (Auto) 1.6 H Eos # (Auto) 0.2 Baso # (Auto) 0.1 Neutrophils % (Manual) 87 H Band Neutrophils % 1 Lymphocytes % (Manual) 4 L Monocytes % (Manual) 7 Eosinophils % (Manual) 1 Platelet Estimate Normal Hypochromasia (manual) Slight Poikilocytosis (manual Slight Anisocytosis (manual) Slight PT INR APTT pO2 VBG pH VBG pCO2 VBG HCO3 VBG Total CO2 VBG O2 Sat (Calc) VBG Base Excess VBG Potassium Glucose Lactate FiO2 Crit Value Called To Crit Value Called By Crit Value Read Back Blood Gas Notified Time Sodium Potassium Chloride Carbon Dioxide Anion Gap BUN Creatinine Est GFR ( Amer) Est GFR (Non-Af Amer) POC Glucose (mg/dL) > 500 H* > 500 H* Random Glucose Calcium Phosphorus Magnesium Iron TIBC % Saturation Total Bilirubin Direct Bilirubin AST ALT Alkaline Phosphatase Total Creatine Kinase CK-MB (Mass) Troponin I Total Protein Albumin Globulin Albumin/Globulin Ratio Lipase Venous Blood Potassium Urine Color Urine Clarity Urine pH Ur Specific [place] Urine Protein Urine Glucose (UA) Urine Ketones Urine Blood Urine Nitrate Urine Bilirubin Urine Urobilinogen Ur Leukocyte Esterase Urine WBC (Auto) Urine RBC (Auto) Urine WBC Clumps (Auto) Ur Squamous Epith Cells Urine Bacteria Hyaline Casts B-Hydroxybutyrate Influenza Typ A,B (EIA) Blood Type Antibody Screen 09/08/18 09/08/18 09/08/18 14:44 14:44 14:44 WBC RBC Hgb Hct MCV MCH MCHC RDW Plt Count MPV Neut % (Auto) Lymph % (Auto) [place] % (Auto) Eos % (Auto) Baso % (Auto) Neut # (Auto) Lymph # (Auto) [place] # (Auto) Eos # (Auto) Baso # (Auto) Neutrophils % (Manual) Band Neutrophils % Lymphocytes % (Manual) Monocytes % (Manual) Eosinophils % (Manual) Platelet Estimate Hypochromasia (manual) Poikilocytosis (manual Anisocytosis (manual) PT 17.0 H INR 1.6 APTT 30 pO2 VBG pH VBG pCO2 VBG HCO3 VBG Total CO2 VBG O2 Sat (Calc) VBG Base Excess VBG Potassium Glucose Lactate FiO2 Crit Value Called To Crit Value Called By Crit Value Read Back Blood Gas Notified Time Sodium 132 Potassium 5.3 H Chloride 99 Carbon Dioxide 22 Anion Gap 16 BUN 35 H Creatinine 1.8 H Est GFR ( Amer) 32 Est GFR (Non-Af Amer) 27 POC Glucose (mg/dL) Random Glucose 588 H* Calcium 9.6 Phosphorus 2.9 Magnesium 2.2 Iron TIBC % Saturation Total Bilirubin 1.0 Direct Bilirubin AST 29 ALT 24 Alkaline Phosphatase 324 H Total Creatine Kinase 54 CK-MB (Mass) 1.01 Troponin I 0.0310 Total Protein 7.1 Albumin 3.6 Globulin 3.6 Albumin/Globulin Ratio 1.0 Lipase 25 Venous Blood Potassium Urine Color Urine Clarity Urine pH Ur Specific [place] Urine Protein Urine Glucose (UA) Urine Ketones Urine Blood Urine Nitrate Urine Bilirubin Urine Urobilinogen Ur Leukocyte Esterase Urine WBC (Auto) Urine RBC (Auto) Urine WBC Clumps (Auto) Ur Squamous Epith Cells Urine Bacteria Hyaline Casts B-Hydroxybutyrate 1.04 H Influenza Typ A,B (EIA) Blood Type O POSITIVE Antibody Screen Negative 09/08/18 09/08/18 09/08/18 14:50 15:13 15:13 WBC RBC Hgb Hct MCV MCH MCHC RDW Plt Count MPV Neut % (Auto) Lymph % (Auto) [place] % (Auto) Eos % (Auto) Baso % (Auto) Neut # (Auto) Lymph # (Auto) [place] # (Auto) Eos # (Auto) Baso # (Auto) Neutrophils % (Manual) Band Neutrophils % Lymphocytes % (Manual) Monocytes % (Manual) Eosinophils % (Manual) Platelet Estimate Hypochromasia (manual) Poikilocytosis (manual Anisocytosis (manual) PT INR APTT pO2 29 L VBG pH 7.42 VBG pCO2 37 L VBG HCO3 23.7 VBG Total CO2 25.1 VBG O2 Sat (Calc) 52.3 VBG Base Excess -0.2 L VBG Potassium 5.3 H Glucose 605 H* Lactate 3.1 H FiO2 Crit Value Called To Kemal batres md Crit Value Called By Neisha palacios firestop/containment worker Crit Value Read Back Y Blood Gas Notified Time 1458 Sodium 134.0 Potassium Chloride 102.0 Carbon Dioxide Anion Gap BUN Creatinine Est GFR ( Amer) Est GFR (Non-Af Amer) POC Glucose (mg/dL) Random Glucose Calcium Phosphorus Magnesium Iron TIBC % Saturation Total Bilirubin Direct Bilirubin AST ALT Alkaline Phosphatase Total Creatine Kinase CK-MB (Mass) Troponin I Total Protein Albumin Globulin Albumin/Globulin Ratio Lipase Venous Blood Potassium 5.3 H Urine Color Brisa Urine Clarity Hazy Urine pH 5.0 Ur Specific [place] 1.017 Urine Protein Negative Urine Glucose (UA) 3+ H Urine Ketones Trace Urine Blood 1+ H Urine Nitrate Negative Urine Bilirubin Negative Urine Urobilinogen 4.0 H Ur Leukocyte Esterase 3+ H Urine WBC (Auto) 51 H Urine RBC (Auto) 11 H Urine WBC Clumps (Auto) Few H Ur Squamous Epith Cells 17 H Urine Bacteria Many H Hyaline Casts >20 H B-Hydroxybutyrate Influenza Typ A,B (EIA) Negative for flu a/b Blood Type Antibody Screen 09/08/18 09/08/18 09/08/18 17:20 17:40 18:18 WBC RBC Hgb Hct MCV MCH MCHC RDW Plt Count MPV Neut % (Auto) Lymph % (Auto) [place] % (Auto) Eos % (Auto) Baso % (Auto) Neut # (Auto) Lymph # (Auto) [place] # (Auto) Eos # (Auto) Baso # (Auto) Neutrophils % (Manual) Band Neutrophils % Lymphocytes % (Manual) Monocytes % (Manual) Eosinophils % (Manual) Platelet Estimate Hypochromasia (manual) Poikilocytosis (manual Anisocytosis (manual) PT INR APTT pO2 36 VBG pH 7.32 VBG pCO2 44 VBG HCO3 21.3 VBG Total CO2 24.1 VBG O2 Sat (Calc) 62.6 VBG Base Excess -3.5 L VBG Potassium 4.1 Glucose 288 H Lactate 2.5 H FiO2 21.0 Crit Value Called To Crit Value Called By Crit Value Read Back Blood Gas Notified Time Sodium 138.0 136 Potassium 4.6 Chloride 111.0 H 106 Carbon Dioxide 23 Anion Gap 11 BUN 34 H Creatinine 1.5 H Est GFR ( Amer) 40 Est GFR (Non-Af Amer) 33 POC Glucose (mg/dL) 345 H Random Glucose 278 H D Calcium 8.4 L Phosphorus 3.0 Magnesium 2.2 Iron TIBC % Saturation Total Bilirubin 0.6 Direct Bilirubin AST 24 ALT 18 Alkaline Phosphatase 232 H D Total Creatine Kinase CK-MB (Mass) Troponin I Total Protein 5.9 L Albumin 2.8 L D Globulin 3.0 Albumin/Globulin Ratio 0.9 L Lipase Venous Blood Potassium 4.1 Urine Color Urine Clarity Urine pH Ur Specific [place] Urine Protein Urine Glucose (UA) Urine Ketones Urine Blood Urine Nitrate Urine Bilirubin Urine Urobilinogen Ur Leukocyte Esterase Urine WBC (Auto) Urine RBC (Auto) Urine WBC Clumps (Auto) Ur Squamous Epith Cells Urine Bacteria Hyaline Casts B-Hydroxybutyrate 0.14 Influenza Typ A,B (EIA) Blood Type Antibody Screen 09/08/18 09/08/18 09/09/18 18:18 20:59 08:21 WBC 22.5 H 25.0 H RBC 3.07 L 3.13 L Hgb 7.5 L 8.0 L Hct 24.1 L 24.9 L MCV 78.4 L 79.6 L MCH 24.5 L 25.5 L MCHC 31.2 L 32.0 L RDW 16.2 H 16.6 H Plt Count 126 L D 117 L MPV 8.2 9.1 Neut % (Auto) 82.2 H Lymph % (Auto) 7.1 L [place] % (Auto) 8.9 Eos % (Auto) 1.3 Baso % (Auto) 0.5 Neut # (Auto) 18.5 H Lymph # (Auto) 1.6 [place] # (Auto) 2.0 H Eos # (Auto) 0.3 Baso # (Auto) 0.1 Neutrophils % (Manual) Band Neutrophils % Lymphocytes % (Manual) Monocytes % (Manual) Eosinophils % (Manual) Platelet Estimate Hypochromasia (manual) Poikilocytosis (manual Anisocytosis (manual) PT INR APTT pO2 VBG pH VBG pCO2 VBG HCO3 VBG Total CO2 VBG O2 Sat (Calc) VBG Base Excess VBG Potassium Glucose Lactate FiO2 Crit Value Called To Crit Value Called By Crit Value Read Back Blood Gas Notified Time Sodium Potassium Chloride Carbon Dioxide Anion Gap BUN Creatinine Est GFR ( Amer) Est GFR (Non-Af Amer) POC Glucose (mg/dL) 353 H Random Glucose Calcium Phosphorus Magnesium Iron TIBC % Saturation Total Bilirubin Direct Bilirubin AST ALT Alkaline Phosphatase Total Creatine Kinase CK-MB (Mass) Troponin I Total Protein Albumin Globulin Albumin/Globulin Ratio Lipase Venous Blood Potassium Urine Color Urine Clarity Urine pH Ur Specific [place] Urine Protein Urine Glucose (UA) Urine Ketones Urine Blood Urine Nitrate Urine Bilirubin Urine Urobilinogen Ur Leukocyte Esterase Urine WBC (Auto) Urine RBC (Auto) Urine WBC Clumps (Auto) Ur Squamous Epith Cells Urine Bacteria Hyaline Casts B-Hydroxybutyrate Influenza Typ A,B (EIA) Blood Type Antibody Screen 09/09/18 09/09/18 08:21 08:21 WBC RBC Hgb Hct MCV MCH MCHC RDW Plt Count MPV Neut % (Auto) Lymph % (Auto) [place] % (Auto) Eos % (Auto) Baso % (Auto) Neut # (Auto) Lymph # (Auto) [place] # (Auto) Eos # (Auto) Baso # (Auto) Neutrophils % (Manual) Band Neutrophils % Lymphocytes % (Manual) Monocytes % (Manual) Eosinophils % (Manual) Platelet Estimate Hypochromasia (manual) Poikilocytosis (manual Anisocytosis (manual) PT INR APTT pO2 VBG pH VBG pCO2 VBG HCO3 VBG Total CO2 VBG O2 Sat (Calc) VBG Base Excess VBG Potassium Glucose Lactate FiO2 Crit Value Called To Crit Value Called By Crit Value Read Back Blood Gas Notified Time Sodium 136 Potassium 4.6 Chloride 109 H Carbon Dioxide 20 L Anion Gap 12 BUN 33 H Creatinine 1.4 H Est GFR ( Amer) 43 Est GFR (Non-Af Amer) 36 POC Glucose (mg/dL) Random Glucose 262 H Calcium 9.1 Phosphorus Magnesium Iron 32 L TIBC 217 L % Saturation 15 L Total Bilirubin 0.6 Direct Bilirubin 0.5 H AST 27 ALT 24 Alkaline Phosphatase 242 H Total Creatine Kinase CK-MB (Mass) Troponin I Total Protein 5.9 L Albumin 2.8 L Globulin 3.1 Albumin/Globulin Ratio 0.9 L Lipase Venous Blood Potassium Urine Color Urine Clarity Urine pH Ur Specific [place] Urine Protein Urine Glucose (UA) Urine Ketones Urine Blood Urine Nitrate Urine Bilirubin Urine Urobilinogen Ur Leukocyte Esterase Urine WBC (Auto) Urine RBC (Auto) Urine WBC Clumps (Auto) Ur Squamous Epith Cells Urine Bacteria Hyaline Casts B-Hydroxybutyrate Influenza Typ A,B (EIA) Blood Type Antibody Screen Assessment & Plan - Assessment and Plan (Free Text) Assessment: 87 year old female with PMH of HTN, DM, and Obesity presenting with bloating and weakness. Active treatment of Pneumonia and UTI. GI consultation for liver l esion on CT A/P. Prior colonoscopy endorsed over fifteen years ago to be normal. Plan: -CT A/P- right hepatic hypodense 7.4x7.1cm lesion, porcelain gallbladder, nodular liver contour, concern for carcinomatosis -plan for MRI abdomen/MRCP w/ and w/o contrast when creatinine improves to further evaluate hepatic lesion -IR evaluation Tuesday for liver lesion biopsy and possible paracentesis for fluid analysis with cytology -ordered Hepatitis panel, autoimmune serologies, AFP -heart healthy diet, Ensure TID -improve glycemic control -supportive care- IVFs, PPI, zofran -will follow clinical course <Carmen Jaramillo - Last Filed: 09/09/18 12:53> Meds - Medications Medications: Current Medications Carvedilol (Coreg) 25 mg PO BID ERIN Sodium Chloride (Sodium Chloride 0.45%) 1,000 mls @ 80 mls/hr IV .[id number] ERIN Last Admin: 09/08/18 22:15 Dose: 80 mls/hr Ceftriaxone Sodium 1 gm/ (Sodium Chloride) 100 mls @ 100 mls/hr IVPB DAILY ERIN; Protocol Azithromycin (Zithromax 500mg In Ns Addvantage) 500 mg in 250 mls @ 167 mls/hr IVPB Q24H ERIN; Protocol Last Admin: 09/08/18 23:14 Dose: 167 mls/hr Insulin Aspart (Novolog) 0 unit SC ACHS ERIN; Protocol Last Admin: 09/08/18 23:12 Dose: 3 u Insulin Glargine (Lantus) 10 unit SC Q12H ERIN Last Admin: 09/08/18 23:12 Dose: 10 u Results - Vital Signs Recent Vital Signs: Last Vital Signs Temp 97.8 F 09/09/18 07:07 Pulse 64 09/09/18 07:07 Resp 20 09/09/18 07:07 BP 158/72 H 09/09/18 07:07 Pulse Ox 95 09/09/18 07:07 - Labs Result Diagrams: 09/09/18 08:21 09/09/18 08:21 Labs: Laboratory Results - last 24 hr 09/08/18 09/08/18 09/08/18 14:08 14:10 14:44 WBC 23.1 H RBC 3.50 L Hgb 8.9 L Hct 27.8 L MCV 79.6 L MCH 25.4 L MCHC 32.0 L RDW 16.1 H Plt Count 152 MPV 8.8 Neut % (Auto) 86.6 H Lymph % (Auto) 5.2 L [place] % (Auto) 6.7 Eos % (Auto) 1.0 Baso % (Auto) 0.5 Neut # (Auto) 20.0 H Lymph # (Auto) 1.2 [place] # (Auto) 1.6 H Eos # (Auto) 0.2 Baso # (Auto) 0.1 Neutrophils % (Manual) 87 H Band Neutrophils % 1 Lymphocytes % (Manual) 4 L Monocytes % (Manual) 7 Eosinophils % (Manual) 1 Differential Comment Platelet Estimate Normal Hypochromasia (manual) Slight Poikilocytosis (manual Slight Anisocytosis (manual) Slight PT INR APTT pO2 VBG pH VBG pCO2 VBG HCO3 VBG Total CO2 VBG O2 Sat (Calc) VBG Base Excess VBG Potassium Glucose Lactate FiO2 Crit Value Called To Crit Value Called By Crit Value Read Back Blood Gas Notified Time Sodium Potassium Chloride Carbon Dioxide Anion Gap BUN Creatinine Est GFR ( Amer) Est GFR (Non-Af Amer) POC Glucose (mg/dL) > 500 H* > 500 H* Random Glucose Hemoglobin A1c Calcium Phosphorus Magnesium Iron TIBC % Saturation Total Bilirubin Direct Bilirubin AST ALT Alkaline Phosphatase Total Creatine Kinase CK-MB (Mass) Troponin I Total Protein Albumin Globulin Albumin/Globulin Ratio Lipase Venous Blood Potassium Urine Color Urine Clarity Urine pH Ur Specific [place] Urine Protein Urine Glucose (UA) Urine Ketones Urine Blood Urine Nitrate Urine Bilirubin Urine Urobilinogen Ur Leukocyte Esterase Urine WBC (Auto) Urine RBC (Auto) Urine WBC Clumps (Auto) Ur Squamous Epith Cells Urine Bacteria Hyaline Casts B-Hydroxybutyrate Hepatitis A IgM Ab Hep Bs Antigen Hep B Core IgM Ab Hepatitis C Antibody Influenza Typ A,B (EIA) Blood Type Antibody Screen 09/08/18 09/08/18 09/08/18 14:44 14:44 14:44 WBC RBC Hgb Hct MCV MCH MCHC RDW Plt Count MPV Neut % (Auto) Lymph % (Auto) [place] % (Auto) Eos % (Auto) Baso % (Auto) Neut # (Auto) Lymph # (Auto) [place] # (Auto) Eos # (Auto) Baso # (Auto) Neutrophils % (Manual) Band Neutrophils % Lymphocytes % (Manual) Monocytes % (Manual) Eosinophils % (Manual) Differential Comment Platelet Estimate Hypochromasia (manual) Poikilocytosis (manual Anisocytosis (manual) PT 17.0 H INR 1.6 APTT 30 pO2 VBG pH VBG pCO2 VBG HCO3 VBG Total CO2 VBG O2 Sat (Calc) VBG Base Excess VBG Potassium Glucose Lactate FiO2 Crit Value Called To Crit Value Called By Crit Value Read Back Blood Gas Notified Time Sodium 132 Potassium 5.3 H Chloride 99 Carbon Dioxide 22 Anion Gap 16 BUN 35 H Creatinine 1.8 H Est GFR ( Amer) 32 Est GFR (Non-Af Amer) 27 POC Glucose (mg/dL) Random Glucose 588 H* Hemoglobin A1c Calcium 9.6 Phosphorus 2.9 Magnesium 2.2 Iron TIBC % Saturation Total Bilirubin 1.0 Direct Bilirubin AST 29 ALT 24 Alkaline Phosphatase 324 H Total Creatine Kinase 54 CK-MB (Mass) 1.01 Troponin I 0.0310 Total Protein 7.1 Albumin 3.6 Globulin 3.6 Albumin/Globulin Ratio 1.0 Lipase 25 Venous Blood Potassium Urine Color Urine Clarity Urine pH Ur Specific [place] Urine Protein Urine Glucose (UA) Urine Ketones Urine Blood Urine Nitrate Urine Bilirubin Urine Urobilinogen Ur Leukocyte Esterase Urine WBC (Auto) Urine RBC (Auto) Urine WBC Clumps (Auto) Ur Squamous Epith Cells Urine Bacteria Hyaline Casts B-Hydroxybutyrate 1.04 H Hepatitis A IgM Ab Hep Bs Antigen Hep B Core IgM Ab Hepatitis C Antibody Influenza Typ A,B (EIA) Blood Type O POSITIVE Antibody Screen Negative 09/08/18 09/08/18 09/08/18 14:50 15:13 15:13 WBC RBC Hgb Hct MCV MCH MCHC RDW Plt Count MPV Neut % (Auto) Lymph % (Auto) [place] % (Auto) Eos % (Auto) Baso % (Auto) Neut # (Auto) Lymph # (Auto) [place] # (Auto) Eos # (Auto) Baso # (Auto) Neutrophils % (Manual) Band Neutrophils % Lymphocytes % (Manual) Monocytes % (Manual) Eosinophils % (Manual) Differential Comment Platelet Estimate Hypochromasia (manual) Poikilocytosis (manual Anisocytosis (manual) PT INR APTT pO2 29 L VBG pH 7.42 VBG pCO2 37 L VBG HCO3 23.7 VBG Total CO2 25.1 VBG O2 Sat (Calc) 52.3 VBG Base Excess -0.2 L VBG Potassium 5.3 H Glucose 605 H* Lactate 3.1 H FiO2 Crit Value Called To Kemal batres md Crit Value Called By Neisha palacios firestop/containment worker Crit Value Read Back Y Blood Gas Notified Time 1458 Sodium 134.0 Potassium Chloride 102.0 Carbon Dioxide Anion Gap BUN Creatinine Est GFR ( Amer) Est GFR (Non-Af Amer) POC Glucose (mg/dL) Random Glucose Hemoglobin A1c Calcium Phosphorus Magnesium Iron TIBC % Saturation Total Bilirubin Direct Bilirubin AST ALT Alkaline Phosphatase Total Creatine Kinase CK-MB (Mass) Troponin I Total Protein Albumin Globulin Albumin/Globulin Ratio Lipase Venous Blood Potassium 5.3 H Urine Color Brisa Urine Clarity Hazy Urine pH 5.0 Ur Specific [place] 1.017 Urine Protein Negative Urine Glucose (UA) 3+ H Urine Ketones Trace Urine Blood 1+ H Urine Nitrate Negative Urine Bilirubin Negative Urine Urobilinogen 4.0 H Ur Leukocyte Esterase 3+ H Urine WBC (Auto) 51 H Urine RBC (Auto) 11 H Urine WBC Clumps (Auto) Few H Ur Squamous Epith Cells 17 H Urine Bacteria Many H Hyaline Casts >20 H B-Hydroxybutyrate Hepatitis A IgM Ab Hep Bs Antigen Hep B Core IgM Ab Hepatitis C Antibody Influenza Typ A,B (EIA) Negative for flu a/b Blood Type Antibody Screen 09/08/18 09/08/18 09/08/18 17:20 17:40 18:18 WBC RBC Hgb Hct MCV MCH MCHC RDW Plt Count MPV Neut % (Auto) Lymph % (Auto) [place] % (Auto) Eos % (Auto) Baso % (Auto) Neut # (Auto) Lymph # (Auto) [place] # (Auto) Eos # (Auto) Baso # (Auto) Neutrophils % (Manual) Band Neutrophils % Lymphocytes % (Manual) Monocytes % (Manual) Eosinophils % (Manual) Differential Comment Platelet Estimate Hypochromasia (manual) Poikilocytosis (manual Anisocytosis (manual) PT INR APTT pO2 36 VBG pH 7.32 VBG pCO2 44 VBG HCO3 21.3 VBG Total CO2 24.1 VBG O2 Sat (Calc) 62.6 VBG Base Excess -3.5 L VBG Potassium 4.1 Glucose 288 H Lactate 2.5 H FiO2 21.0 Crit Value Called To Crit Value Called By Crit Value Read Back Blood Gas Notified Time Sodium 138.0 136 Potassium 4.6 Chloride 111.0 H 106 Carbon Dioxide 23 Anion Gap 11 BUN 34 H Creatinine 1.5 H Est GFR ( Amer) 40 Est GFR (Non-Af Amer) 33 POC Glucose (mg/dL) 345 H Random Glucose 278 H D Hemoglobin A1c Calcium 8.4 L Phosphorus 3.0 Magnesium 2.2 Iron TIBC % Saturation Total Bilirubin 0.6 Direct Bilirubin AST 24 ALT 18 Alkaline Phosphatase 232 H D Total Creatine Kinase CK-MB (Mass) Troponin I Total Protein 5.9 L Albumin 2.8 L D Globulin 3.0 Albumin/Globulin Ratio 0.9 L Lipase Venous Blood Potassium 4.1 Urine Color Urine Clarity Urine pH Ur Specific [place] Urine Protein Urine Glucose (UA) Urine Ketones Urine Blood Urine Nitrate Urine Bilirubin Urine Urobilinogen Ur Leukocyte Esterase Urine WBC (Auto) Urine RBC (Auto) Urine WBC Clumps (Auto) Ur Squamous Epith Cells Urine Bacteria Hyaline Casts B-Hydroxybutyrate 0.14 Hepatitis A IgM Ab Hep Bs Antigen Hep B Core IgM Ab Hepatitis C Antibody Influenza Typ A,B (EIA) Blood Type Antibody Screen 09/08/18 09/08/18 09/09/18 18:18 20:59 06:36 WBC 22.5 H RBC 3.07 L Hgb 7.5 L Hct 24.1 L MCV 78.4 L MCH 24.5 L MCHC 31.2 L RDW 16.2 H Plt Count 126 L D MPV 8.2 Neut % (Auto) 82.2 H Lymph % (Auto) 7.1 L [place] % (Auto) 8.9 Eos % (Auto) 1.3 Baso % (Auto) 0.5 Neut # (Auto) 18.5 H Lymph # (Auto) 1.6 [place] # (Auto) 2.0 H Eos # (Auto) 0.3 Baso # (Auto) 0.1 Neutrophils % (Manual) Band Neutrophils % Lymphocytes % (Manual) Monocytes % (Manual) Eosinophils % (Manual) Differential Comment Platelet Estimate Hypochromasia (manual) Poikilocytosis (manual Anisocytosis (manual) PT INR APTT pO2 VBG pH VBG pCO2 VBG HCO3 VBG Total CO2 VBG O2 Sat (Calc) VBG Base Excess VBG Potassium Glucose Lactate FiO2 Crit Value Called To Crit Value Called By Crit Value Read Back Blood Gas Notified Time Sodium Potassium Chloride Carbon Dioxide Anion Gap BUN Creatinine Est GFR ( Amer) Est GFR (Non-Af Amer) POC Glucose (mg/dL) 353 H 299 H Random Glucose Hemoglobin A1c Calcium Phosphorus Magnesium Iron TIBC % Saturation Total Bilirubin Direct Bilirubin AST ALT Alkaline Phosphatase Total Creatine Kinase CK-MB (Mass) Troponin I Total Protein Albumin Globulin Albumin/Globulin Ratio Lipase Venous Blood Potassium Urine Color Urine Clarity Urine pH Ur Specific [place] Urine Protein Urine Glucose (UA) Urine Ketones Urine Blood Urine Nitrate Urine Bilirubin Urine Urobilinogen Ur Leukocyte Esterase Urine WBC (Auto) Urine RBC (Auto) Urine WBC Clumps (Auto) Ur Squamous Epith Cells Urine Bacteria Hyaline Casts B-Hydroxybutyrate Hepatitis A IgM Ab Hep Bs Antigen Hep B Core IgM Ab Hepatitis C Antibody Influenza Typ A,B (EIA) Blood Type Antibody Screen 09/09/18 09/09/18 09/09/18 08:21 08:21 08:21 WBC 25.0 H RBC 3.13 L Hgb 8.0 L Hct 24.9 L MCV 79.6 L MCH 25.5 L MCHC 32.0 L RDW 16.6 H Plt Count 117 L MPV 9.1 Neut % (Auto) Lymph % (Auto) [place] % (Auto) Eos % (Auto) Baso % (Auto) Neut # (Auto) Lymph # (Auto) [place] # (Auto) Eos # (Auto) Baso # (Auto) Neutrophils % (Manual) Band Neutrophils % Lymphocytes % (Manual) Monocytes % (Manual) Eosinophils % (Manual) Differential Comment Platelet Estimate Hypochromasia (manual) Poikilocytosis (manual Anisocytosis (manual) PT INR APTT pO2 VBG pH VBG pCO2 VBG HCO3 VBG Total CO2 VBG O2 Sat (Calc) VBG Base Excess VBG Potassium Glucose Lactate FiO2 Crit Value Called To Crit Value Called By Crit Value Read Back Blood Gas Notified Time Sodium 136 Potassium 4.6 Chloride 109 H Carbon Dioxide 20 L Anion Gap 12 BUN 33 H Creatinine 1.4 H Est GFR ( Amer) 43 Est GFR (Non-Af Amer) 36 POC Glucose (mg/dL) Random Glucose 262 H Hemoglobin A1c Calcium 9.1 Phosphorus Magnesium Iron 32 L TIBC 217 L % Saturation 15 L Total Bilirubin 0.6 Direct Bilirubin 0.5 H AST 27 ALT 24 Alkaline Phosphatase 242 H Total Creatine Kinase CK-MB (Mass) Troponin I Total Protein 5.9 L Albumin 2.8 L Globulin 3.1 Albumin/Globulin Ratio 0.9 L Lipase Venous Blood Potassium Urine Color Urine Clarity Urine pH Ur Specific [place] Urine Protein Urine Glucose (UA) Urine Ketones Urine Blood Urine Nitrate Urine Bilirubin Urine Urobilinogen Ur Leukocyte Esterase Urine WBC (Auto) Urine RBC (Auto) Urine WBC Clumps (Auto) Ur Squamous Epith Cells Urine Bacteria Hyaline Casts B-Hydroxybutyrate Hepatitis A IgM Ab Hep Bs Antigen Hep B Core IgM Ab Hepatitis C Antibody Influenza Typ A,B (EIA) Blood Type Antibody Screen 09/09/18 09/09/18 09/09/18 10:05 10:05 11:06 WBC RBC Hgb Hct MCV MCH MCHC RDW Plt Count MPV Neut % (Auto) Lymph % (Auto) [place] % (Auto) Eos % (Auto) Baso % (Auto) Neut # (Auto) Lymph # (Auto) [place] # (Auto) Eos # (Auto) Baso # (Auto) Neutrophils % (Manual) Band Neutrophils % Lymphocytes % (Manual) Monocytes % (Manual) Eosinophils % (Manual) Differential Comment Platelet Estimate Hypochromasia (manual) Poikilocytosis (manual Anisocytosis (manual) PT INR APTT pO2 VBG pH VBG pCO2 VBG HCO3 VBG Total CO2 VBG O2 Sat (Calc) VBG Base Excess VBG Potassium Glucose Lactate FiO2 Crit Value Called To Crit Value Called By Crit Value Read Back Blood Gas Notified Time Sodium Potassium Chloride Carbon Dioxide Anion Gap BUN Creatinine Est GFR ( Amer) Est GFR (Non-Af Amer) POC Glucose (mg/dL) 287 H Random Glucose Hemoglobin A1c 9.0 H Calcium Phosphorus Magnesium Iron TIBC % Saturation Total Bilirubin Direct Bilirubin AST ALT Alkaline Phosphatase Total Creatine Kinase CK-MB (Mass) Troponin I Total Protein Albumin Globulin Albumin/Globulin Ratio Lipase Venous Blood Potassium Urine Color Urine Clarity Urine pH Ur Specific [place] Urine Protein Urine Glucose (UA) Urine Ketones Urine Blood Urine Nitrate Urine Bilirubin Urine Urobilinogen Ur Leukocyte Esterase Urine WBC (Auto) Urine RBC (Auto) Urine WBC Clumps (Auto) Ur Squamous Epith Cells Urine Bacteria Hyaline Casts B-Hydroxybutyrate Hepatitis A IgM Ab Negative Hep Bs Antigen Negative Hep B Core IgM Ab Negative Hepatitis C Antibody Negative Influenza Typ A,B (EIA) Blood Type Antibody Screen Attending/Attestation - Attestation I have personally seen and examined this patient.: Yes I have fully participated in the care of the patient.: Yes I have reviewed all pertinent clinical information: Yes Notes (Text): 09/09/18 11:58 I have seen and examined the pt with the GI fellow. In brief, this is a 87 yo F with poorly controlled DM, HTN and obesity who was sent by her PMD for nausea, worsening of chronic bloating and poor appetite x 3 months found to have pneumonia, UTI and 9 cm thick walled cystic lesion in the liver seen on imaging as well as porcelaine GB with cholelithiasis. Prior colonoscopy endorsed over fifteen years ago to be normal. No family h/o liver disease. Unclear if she has had prior abdominal imaging. General: NAD, lying in bed Abd: soft, distended and tympanic, nontender Plan: -MRI abdomen w/ and w/o contrast to further delineate lesion -may have underlying HOUSE cirrhosis given low plts -check AFP, hepatitis panel, autoimmune hepatitis, HbA1c -likely will need IR bx of liver lesion -d/w pt and pt's son at bedside 09/09/18 12:53
[2018-09-09] MEDS: (Lantus) Insulin Glargine, Recombinant SC SCH ×2 (10:00→21:58)
--- NOTE | 2018-09-09 11:05 | US ---
Date of service: 09/09/2018 HISTORY: Liver mass COMPARISON: None. TECHNIQUE: Sonographic evaluation of the abdomen. FINDINGS: LIVER: Measures 18 cm. There is diffuse increased echogenicity of the liver parenchyma with nodular contour. There is a 9.3 x 7.7 x 9.3 cm exam is cystic thick-walled mass with internal echoes without significant peripheral vascularity mass in the right and 3.7 x 3.1 x 4.1 cm well-circumscribed isoechoic in the attic low. No intrahepatic bile duct dilatation. GALLBLADDER: The gallbladder is contracted. There are gallstones and the wall calcification. There is mild diffuse gallbladder wall thickening/edema. No pericholecystic fluid. The sonographic Tatum's sign is negative. COMMON BILE DUCT: Measures 5.7 mm. No stones. No dilatation. PANCREAS: Unremarkable as visualized. No mass. No ductal dilatation. RIGHT KIDNEY: Measures 11.6cm. Normal echogenicity. No calculus, mass, or hydronephrosis. LEFT KIDNEY: Measures 8.5cm. Normal echogenicity. No calculus, mass, or hydronephrosis. SPLEEN: Normal in size and contour. No mass. AORTA: No aneurysmal dilatation. IVC: Unremarkable. OTHER FINDINGS: Small abdominal ascites. IMPRESSION: 1. Mild hepatomegaly and hepatic cirrhosis. Mild abdominal ascites. 2. 9.7 x 9.3 cm predominantly cystic mass in hepatic lobe. Differential consideration infection/inflammation/neoplastic etiologies. A dedicated CT scan/MRI the abdomen with liver protocol without and with intravenous contrast is recommended for further characterization. 3. Cholelithiasis and porcelain gallbladder.
[2018-09-09 11:06] LABS: HEPATITIS B SURFACE AG Negative (NEGATIVE)
[2018-09-09 11:12] LABS: HEPATITIS A IGM NEGATIVE (NEGATIVE); HEPATITIS B CORE AB NEGATIVE (NEGATIVE)
[2018-09-09 11:23] LABS: HEPATITIS C ANTIBODY NEGATIVE (NEGATIVE)
[2018-09-09] MEDS: Sodium Chloride 0.45% 1,000 ML IV SCH ×2 (12:11→23:51)
[2018-09-09 13:16] LABS: HDL CHOLESTEROL 35 mg/dL (30-70)
[2018-09-09 13:31] LABS: LDL CHOLESTEROL 41 mg/dL (0-129)
--- NOTE | 2018-09-09 18:20 | CP.PCM.CON ---
Past Patient History - Past Medical History & Family History Past Medical History?: Yes - Past Social History Smoking Status: Never Smoked - CARDIAC Hx Hypertension: Yes - PULMONARY Hx Respiratory Disorders: No - NEUROLOGICAL Hx Neurological Disorder: No - HEENT Hx HEENT Problems: No - RENAL Hx Chronic Kidney Disease: No - ENDOCRINE/METABOLIC Hx Diabetes Mellitus Type 2: Yes - HEMATOLOGICAL/ONCOLOGICAL Hx Blood Disorders: No - INTEGUMENTARY Hx Dermatological Problems: No - MUSCULOSKELETAL/RHEUMATOLOGICAL Hx Musculoskeletal Disorders: No - GASTROINTESTINAL Hx Gastrointestinal Disorders: No - GENITOURINARY/GYNECOLOGICAL Hx Genitourinary Disorders: No - PSYCHIATRIC Hx Psychophysiologic Disorder: No Hx Substance Use: No - SURGICAL HISTORY Hx Surgeries: No - ANESTHESIA Hx Anesthesia: No Hx Anesthesia Reactions: No Meds Allergies/Adverse Reactions: Allergies Allergy/AdvReac Type Severity Reaction Status Date / Time No Known Allergies Allergy Verified 09/08/18 14:00 - Medications Medications: Current Medications Carvedilol (Coreg) 25 mg PO BID COUNTS INCLUDE 234 BEDS AT THE [facility] Last Admin: 09/09/18 17:32 Dose: 25 mg Sodium Chloride (Sodium Chloride 0.45%) 1,000 mls @ 80 mls/hr IV .[id number] [facility] Last Admin: 09/09/18 12:11 Dose: 80 mls/hr Ceftriaxone Sodium 1 gm/ (Sodium Chloride) 100 mls @ 100 mls/hr IVPB DAILY [facility]; Protocol Last Admin: 09/09/18 10:00 Dose: 100 mls/hr Azithromycin (Zithromax 500mg In Ns Addvantage) 500 mg in 250 mls @ 167 mls/hr IVPB Q24H [facility]; Protocol Last Admin: 09/08/18 23:14 Dose: 167 mls/hr Insulin Aspart (Novolog) 0 unit SC ACHS [facility]; Protocol Last Admin: 09/09/18 17:34 Dose: 2 u Insulin Glargine (Lantus) 10 unit SC Q12H [facility] Last Admin: 09/09/18 10:00 Dose: 10 u Results - Vital Signs Recent Vital Signs: Last Vital Signs Temp 97.9 F 09/09/18 16:20 Pulse 48 L 09/09/18 16:20 Resp 20 09/09/18 16:20 BP 139/62 09/09/18 17:32 Pulse Ox 95 09/09/18 16:20 - Labs Result Diagrams: 09/09/18 08:21 09/09/18 08:21 Labs: Laboratory Results - last 24 hr 09/08/18 09/08/18 09/08/18 18:18 18:18 20:59 WBC 22.5 H RBC 3.07 L Hgb 7.5 L Hct 24.1 L MCV 78.4 L MCH 24.5 L MCHC 31.2 L RDW 16.2 H Plt Count 126 L D MPV 8.2 Neut % (Auto) 82.2 H Lymph % (Auto) 7.1 L [place] % (Auto) 8.9 Eos % (Auto) 1.3 Baso % (Auto) 0.5 Neut # (Auto) 18.5 H Lymph # (Auto) 1.6 [place] # (Auto) 2.0 H Eos # (Auto) 0.3 Baso # (Auto) 0.1 Differential Comment Sodium 136 Potassium 4.6 Chloride 106 Carbon Dioxide 23 Anion Gap 11 BUN 34 H Creatinine 1.5 H Est GFR ( Amer) 40 Est GFR (Non-Af Amer) 33 POC Glucose (mg/dL) 353 H Random Glucose 278 H D Hemoglobin A1c Calcium 8.4 L Phosphorus 3.0 Magnesium 2.2 Iron TIBC % Saturation Total Bilirubin 0.6 Direct Bilirubin AST 24 ALT 18 Alkaline Phosphatase 232 H D Total Protein 5.9 L Albumin 2.8 L D Globulin 3.0 Albumin/Globulin Ratio 0.9 L Triglycerides Cholesterol LDL Cholesterol Direct HDL Cholesterol Alpha Fetoprotein Carcinoembryonic Ag CA 19-9 Antigen B-Hydroxybutyrate 0.14 Hepatitis A IgM Ab Hepatitis A Ab Total Hep Bs Antigen Hep B Core IgM Ab Hepatitis C Antibody 09/09/18 09/09/18 09/09/18 06:36 08:21 08:21 WBC 25.0 H RBC 3.13 L Hgb 8.0 L Hct 24.9 L MCV 79.6 L MCH 25.5 L MCHC 32.0 L RDW 16.6 H Plt Count 117 L MPV 9.1 Neut % (Auto) Lymph % (Auto) [place] % (Auto) Eos % (Auto) Baso % (Auto) Neut # (Auto) Lymph # (Auto) [place] # (Auto) Eos # (Auto) Baso # (Auto) Differential Comment Sodium 136 Potassium 4.6 Chloride 109 H Carbon Dioxide 20 L Anion Gap 12 BUN 33 H Creatinine 1.4 H Est GFR ( Amer) 43 Est GFR (Non-Af Amer) 36 POC Glucose (mg/dL) 299 H Random Glucose 262 H Hemoglobin A1c Calcium 9.1 Phosphorus Magnesium Iron TIBC % Saturation Total Bilirubin 0.6 Direct Bilirubin 0.5 H AST 27 ALT 24 Alkaline Phosphatase 242 H Total Protein 5.9 L Albumin 2.8 L Globulin 3.1 Albumin/Globulin Ratio 0.9 L Triglycerides Cholesterol LDL Cholesterol Direct HDL Cholesterol Alpha Fetoprotein Carcinoembryonic Ag CA 19-9 Antigen B-Hydroxybutyrate Hepatitis A IgM Ab Hepatitis A Ab Total Hep Bs Antigen Hep B Core IgM Ab Hepatitis C Antibody 09/09/18 09/09/18 09/09/18 08:21 10:05 10:05 WBC RBC Hgb Hct MCV MCH MCHC RDW Plt Count MPV Neut % (Auto) Lymph % (Auto) [place] % (Auto) Eos % (Auto) Baso % (Auto) Neut # (Auto) Lymph # (Auto) [place] # (Auto) Eos # (Auto) Baso # (Auto) Differential Comment Sodium Potassium Chloride Carbon Dioxide Anion Gap BUN Creatinine Est GFR ( Amer) Est GFR (Non-Af Amer) POC Glucose (mg/dL) Random Glucose Hemoglobin A1c 9.0 H Calcium Phosphorus Magnesium Iron 32 L TIBC 217 L % Saturation 15 L Total Bilirubin Direct Bilirubin AST ALT Alkaline Phosphatase Total Protein Albumin Globulin Albumin/Globulin Ratio Triglycerides Cholesterol LDL Cholesterol Direct HDL Cholesterol Alpha Fetoprotein Carcinoembryonic Ag CA 19-9 Antigen B-Hydroxybutyrate Hepatitis A IgM Ab Negative Hepatitis A Ab Total Hep Bs Antigen Negative Hep B Core IgM Ab Negative Hepatitis C Antibody Negative 09/09/18 09/09/18 09/09/18 11:00 11:06 12:51 WBC RBC Hgb Hct MCV MCH MCHC RDW Plt Count MPV Neut % (Auto) Lymph % (Auto) [place] % (Auto) Eos % (Auto) Baso % (Auto) Neut # (Auto) Lymph # (Auto) [place] # (Auto) Eos # (Auto) Baso # (Auto) Differential Comment Sodium Potassium Chloride Carbon Dioxide Anion Gap BUN Creatinine Est GFR ( Amer) Est GFR (Non-Af Amer) POC Glucose (mg/dL) 287 H Random Glucose Hemoglobin A1c Calcium Phosphorus Magnesium Iron TIBC % Saturation Total Bilirubin Direct Bilirubin AST ALT Alkaline Phosphatase Total Protein Albumin Globulin Albumin/Globulin Ratio Triglycerides 113 Cholesterol 83 LDL Cholesterol Direct 41 HDL Cholesterol 35 Alpha Fetoprotein 4.6 Carcinoembryonic Ag 2.7 CA 19-9 Antigen 347 H B-Hydroxybutyrate Hepatitis A IgM Ab Hepatitis A Ab Total Antibody pos Hep Bs Antigen Hep B Core IgM Ab Hepatitis C Antibody
[2018-09-09] MEDS: Azithromycin 500mg/250ML NS 500 MG/250 ML BAG IVPB SCH (21:58)
[2018-09-09] MEDS: Piperacill/Tazo 2.25gm in Dex 2.25 GM/50 ML BAG IVPB SCH (21:58)
--- NOTE | 2018-09-10 01:30 | CP.PCM.CON ---
History of Present Illness - History of Present Illness History of Present Illness: 87 year old female with a history of HTN, DM, presenting with abdominal discomfort and fatigue, found to have a liver mass and anemia. The patient notes to progressive abdominal bloating and discomfort for about 2 weeks. She began to feel more fatigued and was instructed to come to the ER by her PMD. In the ER, a CT of the abdomen revealed a liver mass and evidence of peritoneal carcinomatosis. Past medical history: HTN, DM Past surgical history: Denies Family history: Denies hematologic and oncologic problems Social history: Denies tobacco, alcohol, and illicit drug use. Allergies: NKA Review of systems: All remaining review of systems including HEENT, cardiovascular, respiratory, gastrointestinal, genitourinary, musculoskeletal, dermatologic, neurologic, and psychiatric are negative unless mentioned in the HPI. Past Patient History - Past Medical History & Family History Past Medical History?: Yes - Past Social History Smoking Status: Never Smoked - CARDIAC Hx Hypertension: Yes - PULMONARY Hx Respiratory Disorders: No - NEUROLOGICAL Hx Neurological Disorder: No - HEENT Hx HEENT Problems: No - RENAL Hx Chronic Kidney Disease: No - ENDOCRINE/METABOLIC Hx Diabetes Mellitus Type 2: Yes - HEMATOLOGICAL/ONCOLOGICAL Hx Blood Disorders: No - INTEGUMENTARY Hx Dermatological Problems: No - MUSCULOSKELETAL/RHEUMATOLOGICAL Hx Musculoskeletal Disorders: No - GASTROINTESTINAL Hx Gastrointestinal Disorders: No - GENITOURINARY/GYNECOLOGICAL Hx Genitourinary Disorders: No - PSYCHIATRIC Hx Psychophysiologic Disorder: No Hx Substance Use: No - SURGICAL HISTORY Hx Surgeries: No - ANESTHESIA Hx Anesthesia: No Hx Anesthesia Reactions: No Meds Allergies/Adverse Reactions: Allergies Allergy/AdvReac Type Severity Reaction Status Date / Time No Known Allergies Allergy Verified 09/08/18 14:00 - Medications Medications: Current Medications Carvedilol (Coreg) 25 mg PO BID [facility] Last Admin: 09/09/18 17:32 Dose: 25 mg Heparin Sodium (Porcine) (Heparin) 5,000 units SC Q12 [facility] Last Admin: 09/09/18 21:56 Dose: 5,000 units Sodium Chloride (Sodium Chloride 0.45%) 1,000 mls @ 80 mls/hr IV .[id number] [facility] Last Admin: 09/09/18 23:51 Dose: Not Given Azithromycin (Zithromax 500mg In Ns Addvantage) 500 mg in 250 mls @ 167 mls/hr IVPB Q24H [facility]; Protocol Last Admin: 09/09/18 21:58 Dose: 167 mls/hr Piperacillin Sod/Tazobactam Sod (Zosyn 2.25 Gm Iv Premix) 2.25 gm in 50 mls @ 100 mls/hr IVPB Q6H [facility]; Protocol Last Admin: 09/09/18 21:58 Dose: 100 mls/hr Insulin Aspart (Novolog) 0 unit SC ACHS [facility]; Protocol Last Admin: 09/09/18 21:59 Dose: Not Given Insulin Glargine (Lantus) 10 unit SC Q12H [facility] Last Admin: 09/09/18 21:58 Dose: 10 u Physical Exam - Head Exam Head Exam: ATRAUMATIC - Eye Exam Eye Exam: Normal appearance - ENT Exam ENT Exam: Mucous Membranes Dry - Respiratory Exam Respiratory Exam: NORMAL BREATHING PATTERN - Cardiovascular Exam Cardiovascular Exam: +S1, +S2 - GI/Abdominal Exam GI & Abdominal Exam: Normal Bowel Sounds - Extremities Exam Extremities exam: Positive for: normal inspection - Neurological Exam Neurological exam: Oriented x3 - Psychiatric Exam Psychiatric exam: Normal Affect, Normal Mood - Skin Skin Exam: Warm Results - Vital Signs Recent Vital Signs: Last Vital Signs Temp 98.1 F 09/09/18 23:35 Pulse 52 L 09/09/18 23:35 Resp 20 09/09/18 23:35 BP 149/74 09/09/18 23:35 Pulse Ox 97 09/09/18 23:35 - Labs Result Diagrams: 09/09/18 08:21 09/09/18 08:21 Labs: Laboratory Results - last 24 hr 09/09/18 09/09/18 09/09/18 06:36 08:21 08:21 WBC 25.0 H RBC 3.13 L Hgb 8.0 L Hct 24.9 L MCV 79.6 L MCH 25.5 L MCHC 32.0 L RDW 16.6 H Plt Count 117 L MPV 9.1 Differential Comment Sodium 136 Potassium 4.6 Chloride 109 H Carbon Dioxide 20 L Anion Gap 12 BUN 33 H Creatinine 1.4 H Est GFR ( Amer) 43 Est GFR (Non-Af Amer) 36 POC Glucose (mg/dL) 299 H Random Glucose 262 H Hemoglobin A1c Calcium 9.1 Iron TIBC % Saturation Total Bilirubin 0.6 Direct Bilirubin 0.5 H AST 27 ALT 24 Alkaline Phosphatase 242 H Total Protein 5.9 L Albumin 2.8 L Globulin 3.1 Albumin/Globulin Ratio 0.9 L Triglycerides Cholesterol LDL Cholesterol Direct HDL Cholesterol Alpha Fetoprotein Carcinoembryonic Ag CA 19-9 Antigen Hepatitis A IgM Ab Hepatitis A Ab Total Hep Bs Antigen Hep B Core IgM Ab Hepatitis C Antibody 09/09/18 09/09/18 09/09/18 08:21 10:05 10:05 WBC RBC Hgb Hct MCV MCH MCHC RDW Plt Count MPV Differential Comment Sodium Potassium Chloride Carbon Dioxide Anion Gap BUN Creatinine Est GFR ( Amer) Est GFR (Non-Af Amer) POC Glucose (mg/dL) Random Glucose Hemoglobin A1c 9.0 H Calcium Iron 32 L TIBC 217 L % Saturation 15 L Total Bilirubin Direct Bilirubin AST ALT Alkaline Phosphatase Total Protein Albumin Globulin Albumin/Globulin Ratio Triglycerides Cholesterol LDL Cholesterol Direct HDL Cholesterol Alpha Fetoprotein Carcinoembryonic Ag CA 19-9 Antigen Hepatitis A IgM Ab Negative Hepatitis A Ab Total Hep Bs Antigen Negative Hep B Core IgM Ab Negative Hepatitis C Antibody Negative 09/09/18 09/09/18 09/09/18 11:00 11:06 12:51 WBC RBC Hgb Hct MCV MCH MCHC RDW Plt Count MPV Differential Comment Sodium Potassium Chloride Carbon Dioxide Anion Gap BUN Creatinine Est GFR ( Amer) Est GFR (Non-Af Amer) POC Glucose (mg/dL) 287 H Random Glucose Hemoglobin A1c Calcium Iron TIBC % Saturation Total Bilirubin Direct Bilirubin AST ALT Alkaline Phosphatase Total Protein Albumin Globulin Albumin/Globulin Ratio Triglycerides 113 Cholesterol 83 LDL Cholesterol Direct 41 HDL Cholesterol 35 Alpha Fetoprotein 4.6 Carcinoembryonic Ag 2.7 CA 19-9 Antigen 347 H Hepatitis A IgM Ab Hepatitis A Ab Total Antibody pos Hep Bs Antigen Hep B Core IgM Ab Hepatitis C Antibody Assessment & Plan (1) Liver mass Assessment and Plan: agree with liver biopsy normal AFP and CEA, elevated CA19-[address] ordered further treatment recommendations based on pathology Status: Acute (2) Anemia Assessment and Plan: retic count, b12, folate, ferritin, FOBT to further characterize transfusion support PRN Status: Acute (3) Thrombocytopenia Assessment and Plan: mild cont. to monitor Status: Acute (4) Leukocytosis Assessment and Plan: on antibiotics Thank you for this interesting consult. Status: Acute
[2018-09-10] MEDS: Sodium Chloride 0.45% 1,000 ML IV SCH ×3 (03:46→22:18)
[2018-09-10] MEDS: Piperacill/Tazo 2.25gm in Dex 2.25 GM/50 ML BAG IVPB SCH ×4 (03:46→21:45)
[2018-09-10] MEDS ORDERED: Iodixanol 320 MG/ML 100 ML BOTTLE IV ONE (07:28)
--- NOTE | 2018-09-10 07:32 | CP.PCM.PN ---
<Randi Aparicio-Shahida - Last Filed: 09/10/18 07:30> Subjective - Date & Time of Evaluation Date of Evaluation: 09/10/18 Time of Evaluation: 07:30 - Subjective Subjective: Surgery: Dr. Fisher Still with bloating but denies pain n/v/f/c. No issues overnight. Objective - Vital Signs/Intake and Output Vital Signs (last 24 hours): Temp Pulse Resp BP Pulse Ox 98.1 F 52 L 20 149/74 97 09/09/18 23:35 09/09/18 23:35 09/09/18 23:35 09/09/18 23:35 09/09/18 23:35 - Medications Medications: Current Medications Carvedilol (Coreg) 25 mg PO BID [facility] Last Admin: 09/09/18 17:32 Dose: 25 mg Heparin Sodium (Porcine) (Heparin) 5,000 units SC Q12 [facility] Last Admin: 09/09/18 21:56 Dose: 5,000 units Sodium Chloride (Sodium Chloride 0.45%) 1,000 mls @ 80 mls/hr IV .[id number] [facility] Last Admin: 09/10/18 03:46 Dose: 80 mls/hr Azithromycin (Zithromax 500mg In Ns Addvantage) 500 mg in 250 mls @ 167 mls/hr IVPB Q24H [facility]; Protocol Last Admin: 09/09/18 21:58 Dose: 167 mls/hr Piperacillin Sod/Tazobactam Sod (Zosyn 2.25 Gm Iv Premix) 2.25 gm in 50 mls @ 100 mls/hr IVPB Q6H [facility]; Protocol Last Admin: 09/10/18 03:46 Dose: 100 mls/hr Insulin Aspart (Novolog) 0 unit SC ACHS [facility]; Protocol Last Admin: 09/09/18 21:59 Dose: Not Given Insulin Glargine (Lantus) 10 unit SC Q12H [facility] Last Admin: 09/09/18 21:58 Dose: 10 u - Labs Labs: 09/09/18 08:21 09/09/18 08:21 PT 17.0 SECONDS (9.7-12.2) H 09/08/18 14:44 INR 1.6 09/08/18 14:44 APTT 30 SECONDS (21-34) 09/08/18 14:44 - Constitutional Appears: Non-toxic, No Acute Distress - Head Exam Head Exam: ATRAUMATIC, NORMOCEPHALIC - Eye Exam Eye Exam: EOMI, Normal appearance - ENT Exam ENT Exam: Mucous Membranes Moist - Respiratory Exam Respiratory Exam: NORMAL BREATHING PATTERN - Cardiovascular Exam Cardiovascular Exam: REGULAR RHYTHM - GI/Abdominal Exam GI & Abdominal Exam: Distended, Firm. absent: Guarding, Rebound Assessment and Plan - Assessment and Plan (Free Text) Assessment: 87 y/o female w/ liver mass Plan: -needs dedicated CT triple phase when RIGOBERTO resolves, patient may not tolerate MRI -cont diet -f/u tumor markers -IR for bx -further recs per Dr. Ayala PGY4 <Michel Shay - Last Filed: 09/12/18 07:41> Objective - Vital Signs/Intake and Output Vital Signs (last 24 hours): Temp Pulse Resp BP Pulse Ox 98.0 F 69 20 155/79 H 94 L 09/12/18 04:00 09/12/18 04:12 09/12/18 04:00 09/12/18 04:00 09/12/18 04:00 - Medications Medications: Current Medications Carvedilol (Coreg) 25 mg PO BID [facility] Last Admin: 09/11/18 18:44 Dose: 25 mg Docusate Sodium (Colace) 100 mg PO BID [facility] Last Admin: 09/11/18 17:38 Dose: 100 mg Heparin Sodium (Porcine) (Heparin) 5,000 units SC Q12 [facility] Last Admin: 09/11/18 21:42 Dose: 5,000 units Azithromycin (Zithromax 500mg In Ns Addvantage) 500 mg in 250 mls @ 167 mls/hr IVPB Q24H [facility]; Protocol Last Admin: 09/11/18 23:25 Dose: 167 mls/hr Metronidazole (Flagyl) 500 mg in 100 mls @ 100 mls/hr IVPB Q8H [facility]; Protocol Last Admin: 09/12/18 06:01 Dose: 100 mls/hr Meropenem 500 mg/ Sodium (Chloride) 100 mls @ 100 mls/hr IVPB Q8H [facility]; Protocol Last Admin: 09/12/18 04:36 Dose: 100 mls/hr Insulin Aspart (Novolog) 0 unit SC ACHS [facility]; Protocol Last Admin: 09/12/18 07:41 Dose: Not Given Insulin Glargine (Lantus) 10 unit SC Q12H [facility] Last Admin: 09/11/18 21:42 Dose: Not Given Polyethylene Glycol (Miralax) 17 gm PO BID [facility] Last Admin: 09/11/18 17:38 Dose: 17 gm - Labs Labs: 09/11/18 06:54 09/11/18 06:54 PT 14.7 SECONDS (9.7-12.2) H 09/10/18 11:23 INR 1.3 09/10/18 11:23 APTT 30 SECONDS (21-34) 09/08/18 14:44 Assessment and Plan - Assessment and Plan (Free Text) Plan: All medical record entries made by the resident were at my direction. I have reviewed the chart and agree that the record accurately reflects my personal performance of the history, physical exam, and medical decision making.
[2018-09-10] MEDS: (Novolog) Insulin Aspart, Recombinant 100 u/ml 10 ml vial SC SCH ×4 (07:54→21:53)
[2018-09-10 08:33] LABS: BASO # 0.1 K/uL (0.0-0.2); BASO % 0.5 % (0.0-2.0); EOS # 1.3 K/uL (0.0-0.7); EOS % 5.5 % (0.0-4.0); HEMOGLOBIN 8.7 g/dL (11.0-16.0); LYMPH # 1.5 K/uL (1.0-4.3); LYMPH % 6.5 % (20.0-40.0); MEAN CELL VOLUME 80.4 fL (81.0-99.0); MEAN CORPUSCULAR HEMOGLOBIN 25.7 pg (27.0-31.0); MEAN CORPUSCULAR HGB CONC 31.9 g/dL (33.0-37.0); MEAN PLATELET VOLUME 9.2 fL (7.2-11.7); MONO # 1.3 K/uL (0.0-0.8); MONO % 5.9 % (0.0-10.0); NEUT # 18.6 K/uL (1.8-7.0); NEUT % 81.6 % (50.0-75.0); PLATELET COUNT 128 K/uL (130-400); RBC 3.39 Mil/uL (3.80-5.20); RED CELL DISTRIBUTION WIDTH 16.9 % (11.5-14.5); WHITE BLOOD COUNT 22.8 K/uL (4.8-10.8)
[2018-09-10 08:45] LABS: ALB/GLOB RATIO 0.9 (1.0-2.1); CALCIUM 9.3 mg/dl (8.6-10.4)
[2018-09-10 09:22] LABS: BANDS 7 % (0-2); EOSINOPHIL 6 % (0-4); LYMPHOCYTE 5 % (20-40); MONOCYTE 2 % (0-10); NEUTROPHIL 80 % (50-75); TOTAL CELLS COUNTED 100
[2018-09-10 09:23] LABS: PLATELET ESTIMATE SLIGHTLY DECREASED (NORMAL)
[2018-09-10 09:24] LABS: ANISOCYTOSIS SLIGHT; HYPOCHROMIC SLIGHT; POIKILOCYTOSIS SLIGHT
--- NOTE | 2018-09-10 09:25 | CP.PCM.PN ---
<María Sanabria - Last Filed: 09/10/18 11:45> Subjective - Date & Time of Evaluation Date of Evaluation: 09/10/18 Time of Evaluation: 09:22 - Subjective Subjective: Gastroenterology Fellow/PGY6 Progress Note Patient continues to feel bloated with loss of appetite. Tolerated small amounts of regular diet. Notes mild right lower abdomen discomfort. No bowel movement yesterday. A 12-point review of systems negative except for as above. Objective - Vital Signs/Intake and Output Vital Signs (last 24 hours): Temp Pulse Resp BP Pulse Ox 98 F 70 20 160/73 H 97 09/10/18 07:00 09/10/18 07:42 09/10/18 07:00 09/10/18 07:00 09/10/18 07:00 - Medications Medications: Current Medications Carvedilol (Coreg) 25 mg PO BID [facility] Last Admin: 09/09/18 17:32 Dose: 25 mg Heparin Sodium (Porcine) (Heparin) 5,000 units SC Q12 ERIN Last Admin: 09/09/18 21:56 Dose: 5,000 units Sodium Chloride (Sodium Chloride 0.45%) 1,000 mls @ 80 mls/hr IV .[id number] ERIN Last Admin: 09/10/18 03:46 Dose: 80 mls/hr Azithromycin (Zithromax 500mg In Ns Addvantage) 500 mg in 250 mls @ 167 mls/hr IVPB Q24H ERIN; Protocol Last Admin: 09/09/18 21:58 Dose: 167 mls/hr Piperacillin Sod/Tazobactam Sod (Zosyn 2.25 Gm Iv Premix) 2.25 gm in 50 mls @ 100 mls/hr IVPB Q6H ERIN; Protocol Last Admin: 09/10/18 03:46 Dose: 100 mls/hr Insulin Aspart (Novolog) 0 unit SC ACHS ERIN; Protocol Last Admin: 09/10/18 07:54 Dose: Not Given Insulin Glargine (Lantus) 10 unit SC Q12H ERIN Last Admin: 09/09/18 21:58 Dose: 10 u - Labs Labs: 09/10/18 08:20 09/10/18 08:20 PT 17.0 SECONDS (9.7-12.2) H 09/08/18 14:44 INR 1.6 09/08/18 14:44 APTT 30 SECONDS (21-34) 09/08/18 14:44 - Constitutional Appears: Non-toxic, No Acute Distress - Head Exam Head Exam: ATRAUMATIC, NORMOCEPHALIC - Eye Exam Eye Exam: EOMI, PERRL. absent: Scleral icterus Pupil Exam: PERRL. absent: Miosis, Mydriatic - ENT Exam ENT Exam: Mucous Membranes Moist, Normal Oropharynx - Neck Exam Neck Exam: Full ROM, Normal Inspection - Respiratory Exam Respiratory Exam: Clear to Ausculation Bilateral. absent: Rales, Rhonchi, Wheezes - Cardiovascular Exam Cardiovascular Exam: RRR, +S1, +S2. absent: Gallop, Rubs - GI/Abdominal Exam GI & Abdominal Exam: Distended, Soft, Tenderness, Normal Bowel Sounds, Organomegaly. absent: Guarding, Rigid, Rebound - Extremities Exam Extremities Exam: Normal Inspection, Pedal Edema - Neurological Exam Neurological Exam: Alert, Awake - Psychiatric Exam Psychiatric exam: Normal Affect, Normal Mood - Skin Skin Exam: Dry, Intact, Normal Color, Warm Assessment and Plan - Assessment and Plan (Free Text) Assessment: 87 year old female with PMH of HTN, DM, and Obesity presenting with bloating and weakness. GI consultation for liver lesion on CT A/P with ongoing treatment of Pneumonia and UTI. Prior colonoscopy endorsed over fifteen years ago to be normal. Plan: -09/08 MELD 18 -CT A/P and U/S- right hepatic 7.4x7.1cm lesion, porcelain gallbladder, cirrhosis -follow up CT liver protocol -IR liver biopsy Tuesday, follow up PT/INR -normal AFP, CA 19-9 347 -Hepatitis panel negative, pending autoimmune serologies -low sodium diet, Ensure TID -will follow clinical course <Carmen Jaramillo - Last Filed: 09/10/18 12:14> Objective - Vital Signs/Intake and Output Vital Signs (last 24 hours): Temp Pulse Resp BP Pulse Ox 98 F 70 20 162/70 H 97 09/10/18 07:00 09/10/18 07:42 09/10/18 07:00 09/10/18 10:26 09/10/18 07:00 - Medications Medications: Current Medications Carvedilol (Coreg) 25 mg PO BID [facility] Last Admin: 09/10/18 10:26 Dose: 25 mg Heparin Sodium (Porcine) (Heparin) 5,000 units SC Q12 ERIN Last Admin: 09/10/18 10:26 Dose: 5,000 units Sodium Chloride (Sodium Chloride 0.45%) 1,000 mls @ 80 mls/hr IV .[id number] ERIN Last Admin: 09/10/18 03:46 Dose: 80 mls/hr Azithromycin (Zithromax 500mg In Ns Addvantage) 500 mg in 250 mls @ 167 mls/hr IVPB Q24H ERIN; Protocol Last Admin: 09/09/18 21:58 Dose: 167 mls/hr Piperacillin Sod/Tazobactam Sod (Zosyn 2.25 Gm Iv Premix) 2.25 gm in 50 mls @ 100 mls/hr IVPB Q6H ERIN; Protocol Last Admin: 09/10/18 10:30 Dose: 100 mls/hr Insulin Aspart (Novolog) 0 unit SC ACHS ERIN; Protocol Last Admin: 09/10/18 07:54 Dose: Not Given Insulin Glargine (Lantus) 10 unit SC Q12H ERIN Last Admin: 09/10/18 10:00 Dose: Not Given - Labs Labs: 09/10/18 08:20 09/10/18 08:20 PT 14.7 SECONDS (9.7-12.2) H 09/10/18 11:23 INR 1.3 09/10/18 11:23 APTT 30 SECONDS (21-34) 09/08/18 14:44 Attending/Attestation - Attestation I have personally seen and examined this patient.: Yes I have fully participated in the care of the patient.: Yes I have reviewed all pertinent clinical information, including history, physical exam and plan: Yes Notes (Text): 09/10/18 12:11 I have seen and examined the pt with the GI fellow. She still complains of poor appetite. Remains distended and feels bloated. Cr improved today. Had Liver CT, await results. CEA, AFP normal, CA 19-9 elevated. IR to evaluate for CT guided liver bx. Discussed with the pt. 09/10/18 12:13 09/10/18 12:14
[2018-09-10] MEDS: (Lantus) Insulin Glargine, Recombinant SC SCH ×2 (10:00→22:18)
[2018-09-10 11:39] LABS: INR 1.3; PROTHROMBIN TIME 14.7 SECONDS (9.7-12.2)
--- NOTE | 2018-09-10 12:34 | CP.PCM.CON ---
History of Present Illness - History of Present Illness History of Present Illness: INFECTIOUS DISEASE CONSULT; HPI; 87-year-old female with history of hypertension, DM admitted to [facility] with abdominal discomfort and fatigue and hyperglycemia. During admission, patient was found to have pneumonia and UTI. Hospital workup including CAT scan of the abdomen and pelvis revealed a liver mass 7 x 7 cm with evidence of peritoneal carcinomatosis. Patient admits to abdominal pains, mild in nature, occasional nausea but no vomiting and increased bloating and flatus X 2 weeks.patient also complains off poor appetite x 2 weeks. Urine cultures also reported positive for Escherichia coli. Patient was found to have leukocytosis of 22.8 with anemia. Infectious disease consultation therefore requested for pneumonia, UTI and liver mass. Chest x-ray on admission showed patchy right-sided infiltrate with bilateral lower lobe consolidations. PATIENT DENIES ANY HISTORY OF HEMOPTYSIS OR PLEURITIC CHEST PAIN AT PRESENT. Complains of a dry cough for past FEW DAYS. PATIENT DENIES ASSOCIATED FEVERS, SHORTNESS OF BREATH BUT DOES COMPLAIN OF RIGHT UPPER QUADRANT ABDOMINAL PAIN./ AND BLOATING. TRAVEL HISTORY REPORTED WITHIN THE LAST 6 MONTH DID GO ON A TRIP TO [facility],BUT DENIES ANY HISTORY OFF DIARRHEA OR OBSTIPATION OR FEELING ILL AT THAT TRIP. NO RECENT HISTORY OF SICK CONTACTS. Past medical history: HTN, DM Past surgical history: Denies Family history: Denies hematologic and oncologic problems Social history: Denies tobacco, alcohol, and illicit drug use. Allergies: NKA MEDS; PATIENT RECEIVED A DOSE OF CEFTRIAXONE AND zITHROMAX- THEN SWITCHED TO iv zOSYN AND zITHROMAX ON 09/09/18 REST OF THE MEDICATIONS PER MARS. Review of Systems - Constitutional Constitutional: Weight Loss (4 pounds during the past 4 weeks). absent: Chills, Fever - Cardiovascular Cardiovascular: absent: Chest Pain, Dyspnea - Respiratory Respiratory: Cough. absent: Hemoptysis, Pain with Coughing - Gastrointestinal Gastrointestinal: Abdominal Pain, Bloating, Early Satiety, Excessive Flatus, Nausea - Genitourinary Genitourinary: absent: Dysuria, Hematuria, Freq UTI - Integumentary Integumentary: absent: Pruritus, Rash - Hematologic/Lymphatic Hematologic: As Per HPI. absent: Easy Bleeding, Easy Bruising, Lymphadenopathy Past Patient History - Past Medical History & Family History Past Medical History?: Yes - Past Social History Smoking Status: Never Smoked - CARDIAC Hx Hypertension: Yes - PULMONARY Hx Respiratory Disorders: No - NEUROLOGICAL Hx Neurological Disorder: No - HEENT Hx HEENT Problems: No - RENAL Hx Chronic Kidney Disease: No - ENDOCRINE/METABOLIC Hx Diabetes Mellitus Type 2: Yes - HEMATOLOGICAL/ONCOLOGICAL Hx Blood Disorders: No - INTEGUMENTARY Hx Dermatological Problems: No - MUSCULOSKELETAL/RHEUMATOLOGICAL Hx Musculoskeletal Disorders: No - GASTROINTESTINAL Hx Gastrointestinal Disorders: No - GENITOURINARY/GYNECOLOGICAL Hx Genitourinary Disorders: No - PSYCHIATRIC Hx Psychophysiologic Disorder: No Hx Substance Use: No - SURGICAL HISTORY Hx Surgeries: No - ANESTHESIA Hx Anesthesia: No Hx Anesthesia Reactions: No Meds Allergies/Adverse Reactions: Allergies Allergy/AdvReac Type Severity Reaction Status Date / Time No Known Allergies Allergy Verified 09/08/18 14:00 - Medications Medications: Current Medications Carvedilol (Coreg) 25 mg PO BID [facility] Last Admin: 09/10/18 10:26 Dose: 25 mg Heparin Sodium (Porcine) (Heparin) 5,000 units SC Q12 ERIN Last Admin: 09/10/18 10:26 Dose: 5,000 units Sodium Chloride (Sodium Chloride 0.45%) 1,000 mls @ 80 mls/hr IV .[id number] ERIN Last Admin: 09/10/18 03:46 Dose: 80 mls/hr Azithromycin (Zithromax 500mg In Ns Addvantage) 500 mg in 250 mls @ 167 mls/hr IVPB Q24H ERIN; Protocol Last Admin: 09/09/18 21:58 Dose: 167 mls/hr Piperacillin Sod/Tazobactam Sod (Zosyn 2.25 Gm Iv Premix) 2.25 gm in 50 mls @ 100 mls/hr IVPB Q6H ERIN; Protocol Last Admin: 09/10/18 10:30 Dose: 100 mls/hr Insulin Aspart (Novolog) 0 unit SC ACHS ERIN; Protocol Last Admin: 09/10/18 07:54 Dose: Not Given Insulin Glargine (Lantus) 10 unit SC Q12H ERIN Last Admin: 09/10/18 10:00 Dose: Not Given Physical Exam - Constitutional Appears: No Acute Distress - Head Exam Head Exam: NORMAL INSPECTION - Eye Exam Eye Exam: EOMI, PERRL. absent: Scleral icterus - ENT Exam ENT Exam: Normal Oropharynx - Neck Exam Neck exam: Positive for: Normal Inspection. Negative for: Lymphadenopathy - Respiratory Exam Respiratory Exam: Decreased Breath Sounds, NORMAL BREATHING PATTERN - Cardiovascular Exam Cardiovascular Exam: REGULAR RHYTHM, +S1, +S2 - GI/Abdominal Exam GI & Abdominal Exam: Distended, Hypoactive Bowel Sounds, Soft, Tenderness (right upper quadrant and epigastric.). absent: Guarding - Extremities Exam Extremities exam: Positive for: pedal pulses present. Negative for: calf tenderness, pedal edema - Neurological Exam Neurological exam: Alert, CN II-XII Intact, Oriented x3, Reflexes Normal - Skin Skin Exam: Pallor, Warm Results - Vital Signs Recent Vital Signs: Last Vital Signs Temp 98 F 09/10/18 07:00 Pulse 70 09/10/18 07:42 Resp 20 09/10/18 07:00 BP 162/70 H 09/10/18 10:26 Pulse Ox 97 09/10/18 07:00 - Labs Result Diagrams: 09/11/18 06:54 09/11/18 06:54 Labs: Laboratory Results - last 24 hr 09/09/18 09/09/18 09/10/18 11:00 12:51 08:20 WBC 22.8 H RBC 3.39 L Hgb 8.7 L Hct 27.3 L MCV 80.4 L MCH 25.7 L MCHC 31.9 L RDW 16.9 H Plt Count 128 L MPV 9.2 Neut % (Auto) 81.6 H Lymph % (Auto) 6.5 L [place] % (Auto) 5.9 Eos % (Auto) 5.5 H Baso % (Auto) 0.5 Neut # (Auto) 18.6 H Lymph # (Auto) 1.5 [place] # (Auto) 1.3 H Eos # (Auto) 1.3 H Baso # (Auto) 0.1 Neutrophils % (Manual) 80 H Band Neutrophils % 7 H Lymphocytes % (Manual) 5 L Monocytes % (Manual) 2 Eosinophils % (Manual) 6 H Platelet Estimate Slightly decreased L Hypochromasia (manual) Slight Poikilocytosis (manual Slight Anisocytosis (manual) Slight PT INR Sodium Potassium Chloride Carbon Dioxide Anion Gap BUN Creatinine Est GFR ( Amer) Est GFR (Non-Af Amer) Random Glucose Calcium Ferritin Total Bilirubin AST ALT Alkaline Phosphatase Total Protein Albumin Globulin Albumin/Globulin Ratio Triglycerides 113 Cholesterol 83 LDL Cholesterol Direct 41 HDL Cholesterol 35 Alpha Fetoprotein 4.6 Carcinoembryonic Ag 2.7 CA 19-9 Antigen 347 H Hepatitis A Ab Total Antibody pos 09/10/18 09/10/18 08:20 11:23 WBC RBC Hgb Hct MCV MCH MCHC RDW Plt Count MPV Neut % (Auto) Lymph % (Auto) [place] % (Auto) Eos % (Auto) Baso % (Auto) Neut # (Auto) Lymph # (Auto) [place] # (Auto) Eos # (Auto) Baso # (Auto) Neutrophils % (Manual) Band Neutrophils % Lymphocytes % (Manual) Monocytes % (Manual) Eosinophils % (Manual) Platelet Estimate Hypochromasia (manual) Poikilocytosis (manual Anisocytosis (manual) PT 14.7 H INR 1.3 Sodium 138 Potassium 4.3 Chloride 108 H Carbon Dioxide 21 L Anion Gap 14 BUN 32 H Creatinine 1.2 Est GFR ( Amer) 51 Est GFR (Non-Af Amer) 42 Random Glucose 118 H D Calcium 9.3 Ferritin 425.0 Total Bilirubin 0.6 AST 37 H D ALT 18 Alkaline Phosphatase 242 H Total Protein 6.2 L Albumin 3.0 L Globulin 3.2 Albumin/Globulin Ratio 0.9 L Triglycerides Cholesterol LDL Cholesterol Direct HDL Cholesterol Alpha Fetoprotein Carcinoembryonic Ag CA 19-9 Antigen Hepatitis A Ab Total - Imaging and Cardiology Chest x-ray Status: Report reviewed by me (chest x-ray patchy right > left LL CONSOLIDATIONS CONSISTENT WITH PNEUMONIA.) Assessment & Plan (1) Abdominal pain Status: Acute (2) Pneumonia Status: Acute (3) UTI (urinary tract infection) Status: Acute (4) Leukocytosis Status: Acute (5) Liver mass Status: Acute (6) Anemia Status: Acute - Assessment and Plan (Free Text) Plan: PLAN; PANCULTURES. SPUTUM GRAM STAIN AND CULTURE. CONTINUE iv ZOSYN 2.25 G iv PIGGYBACK EVERY 6 HOURLY 09/09/18. CONTINUE iv ZITHROMAX 500 MG ONCE A DAY DAILY 09/08/18/. ADD iv FLAGYL 500 MG EVERY 8 HOURLY 09/10/18. PATIENT FOR LIVER BIOPSY PER GI IN A.M. BY IR. F/U REPEAT BLOOD WORKS cbc WITH DIFFERENTIAL. BMP, LFTS IN AM. F/U CT LIVER TRIPLE PHASE PER SURGERY DR REMY. WILL F/U WITH YOU. THANK YOU.
[2018-09-10] MEDS: metroNIDAZOLE IV 500 mg/100 ml 500 MG/100 ML BAG IVPB SCH ×2 (15:09→22:17)
--- NOTE | 2018-09-10 20:00 | PN ---
DATE: 09/10/2018 SUBJECTIVE: She still has a feeling of bloated abdomen. No respiratory distress. PHYSICAL EXAMINATION: VITAL SIGNS: Blood pressure 160/70, temperature 98, respiratory rate 20, and pulse 70. HEENT: Pupils equal and reactive to light. Normal-appearing mucosa of the conjunctivae, oropharynx, and nasal membrane mucosa. Pale mucosa of the conjunctivae. NECK: Supple. No JVD. No carotid bruit. No lymph nodes. No thyromegaly. CHEST AND LUNGS: Bilateral symmetrical expansion. Good air exchange. No rales. No rhonchi. CARDIOVASCULAR SYSTEM: PMI not localized. S1 and S2. No additional sounds. ABDOMEN: Normoactive bowel sounds. No tenderness. The patient is slightly distended with mass palpable on the right upper quadrant. EXTREMITIES: No cyanosis. No clubbing. No edema. CENTRAL NERVOUS SYSTEM: Alert, awake, and oriented x2. No neurological deficits could be appreciated. ASSESSMENT: 1. Pneumonia, sepsis, right upper quadrant mass. Differential diagnosis liver versus gallbladder. 2. Hypertension. 3. Type 2 diabetes mellitus with hyperglycemia. 4. Anemia, multifactorial. PLAN: Followup the liver CAT scan that was ordered. Follow recommendations of Gastroenterology, Infectious Disease, Surgery, and Hematology-Oncology. Smitha Gan MD MTDD
[2018-09-10] MEDS: Azithromycin 500mg/250ML NS 500 MG/250 ML BAG IVPB SCH (23:06)
[2018-09-11] MEDS: Piperacill/Tazo 2.25gm in Dex 2.25 GM/50 ML BAG IVPB SCH (04:38)
[2018-09-11] MEDS: metroNIDAZOLE IV 500 mg/100 ml 500 MG/100 ML BAG IVPB SCH ×3 (05:20→21:43)
[2018-09-11 07:05] LABS: BASO # 0.1 K/uL (0.0-0.2); BASO % 0.2 % (0.0-2.0); EOS # 0.5 K/uL (0.0-0.7); EOS % 2.1 % (0.0-4.0); HEMOGLOBIN 8.3 g/dL (11.0-16.0); LYMPH # 1.4 K/uL (1.0-4.3); LYMPH % 5.3 % (20.0-40.0); MEAN CORPUSCULAR HEMOGLOBIN 24.5 pg (27.0-31.0); MEAN CORPUSCULAR HGB CONC 31.1 g/dL (33.0-37.0); MEAN PLATELET VOLUME 9.3 fL (7.2-11.7); MONO # 1.7 K/uL (0.0-0.8); MONO % 6.3 % (0.0-10.0); NEUT # 22.8 K/uL (1.8-7.0); NEUT % 86.1 % (50.0-75.0); PLATELET COUNT 159 K/uL (130-400); RBC 3.38 Mil/uL (3.80-5.20); RED CELL DISTRIBUTION WIDTH 16.6 % (11.5-14.5); WHITE BLOOD COUNT 26.4 K/uL (4.8-10.8)
--- NOTE | 2018-09-11 07:09 | HP ---
HISTORY OF PRESENT ILLNESS: This is an 87-year-old female with history of multiple medical problems, presented to the office on the day of admission with symptoms of decreased appetite and bloating. The patient was evaluated and found to be dehydrated and pale, subsequently sent to emergency room for evaluation. The patient was found to have anemia as well as prerenal azotemia and leukocytosis. The patient's imaging also revealed possible liver mass and calcified gallbladder. The patient's white cell count was 22,500, hemoglobin 7.5, hematocrit 24.1. Subsequently, the patient admitted to medical floor for further management. Other review of systems is negative. ALLERGIES: NO KNOWN ALLERGY. MEDICATIONS: Reviewed as per MAR and ordered. SOCIAL HISTORY: No history of smoking, EtOH or substance abuse. FAMILY HISTORY: Not contributory. PAST MEDICAL HISTORY: Type 2 diabetes mellitus, hypertension, osteoarthritis. PHYSICAL EXAMINATION: GENERAL: The patient is in bed, not in any cardiopulmonary distress at the time of this examination. VITAL SIGNS: Blood pressure 142/56, temperature 97.9, respiratory rate 20 and pulse 48. HEENT: Pupils equal, reactive to light. pale mucosa of the conjunctivae. NECK: Supple. No JVD, no carotid bruit. No lymph node. No thyromegaly. CHEST AND LUNGS: Bilateral symmetrical expansion. Good air exchange. No rales, no rhonchi. CARDIOVASCULAR SYSTEM: PMI not localized. S1, S2. No additional sounds. ABDOMEN: Normoactive bowel sounds. No tenderness. There is right upper mass not attached to skin. EXTREMITIES: No cyanosis, no clubbing, no edema. CENTRAL NERVOUS SYSTEM: Alert, awake, oriented x2. No neurological deficits could be appreciated. LABORATORY DATA: White blood cell count again is 25,000, hemoglobin 7.5. ASSESSMENT: 1. Pneumonia, right greater than left lower lobe consolidation with small right pleural effusion. 2. Liver mass. 3. Normocytic anemia. 4. Type 2 diabetes mellitus with hyperglycemia. 5. Mixed hypertension. PLAN: Follow blood cultures done. Start the patient on IV antibiotics. ID consult. GI and surgical consult. Hematology/Oncology consult. Frequent Accu-Cheks with insulin coverage. DVT prophylaxis. Smitha Gan MD [facility] # [id number] MTDD
[2018-09-11 07:47] LABS: ALB/GLOB RATIO 0.9 (1.0-2.1); ALBUMIN 2.9 g/dL (3.5-5.0); BILIRUBIN,DIRECT 0.4 mg/dL (0.0-0.4); CALCIUM 9.1 mg/dl (8.6-10.4)
[2018-09-11] MEDS: (Novolog) Insulin Aspart, Recombinant 100 u/ml 10 ml vial SC SCH ×4 (07:49→21:44)
--- NOTE | 2018-09-11 07:51 | CP.PCM.PN ---
<White,Randi-Shahida - Last Filed: 09/11/18 07:48> Subjective - Date & Time of Evaluation Date of Evaluation: 09/11/18 Time of Evaluation: 07:48 - Subjective Subjective: Surgery: Dr. Caputo Patient complains of worsening bloating. Denies f/c/n/v. Tolerating diet but not much appetite. Objective - Vital Signs/Intake and Output Vital Signs (last 24 hours): Temp Pulse Resp BP Pulse Ox 98 F 61 20 150/75 97 09/10/18 23:25 09/11/18 04:20 09/10/18 23:25 09/10/18 23:25 09/10/18 23:25 Intake and Output: 09/11/18 09/11/18 06:59 18:59 Intake Total 1390 Balance 1390 - Medications Medications: Current Medications Carvedilol (Coreg) 25 mg PO BID [facility] Last Admin: 09/10/18 17:21 Dose: Not Given Heparin Sodium (Porcine) (Heparin) 5,000 units SC Q12 ERIN Last Admin: 09/10/18 22:20 Dose: 5,000 units Sodium Chloride (Sodium Chloride 0.45%) 1,000 mls @ 80 mls/hr IV .[id number] ERIN Last Admin: 09/10/18 22:18 Dose: 80 mls/hr Azithromycin (Zithromax 500mg In Ns Addvantage) 500 mg in 250 mls @ 167 mls/hr IVPB Q24H ERIN; Protocol Last Admin: 09/10/18 23:06 Dose: 167 mls/hr Piperacillin Sod/Tazobactam Sod (Zosyn 2.25 Gm Iv Premix) 2.25 gm in 50 mls @ 100 mls/hr IVPB Q6H ERIN; Protocol Last Admin: 09/11/18 04:38 Dose: 100 mls/hr Metronidazole (Flagyl) 500 mg in 100 mls @ 100 mls/hr IVPB Q8H ERIN; Protocol Last Admin: 09/11/18 05:20 Dose: 100 mls/hr Insulin Aspart (Novolog) 0 unit SC ACHS ERIN; Protocol Last Admin: 09/10/18 21:53 Dose: Not Given Insulin Glargine (Lantus) 10 unit SC Q12H ERIN Last Admin: 09/10/18 22:18 Dose: 10 units - Labs Labs: 09/11/18 06:54 09/11/18 06:54 PT 14.7 SECONDS (9.7-12.2) H 09/10/18 11:23 INR 1.3 09/10/18 11:23 APTT 30 SECONDS (21-34) 09/08/18 14:44 - Constitutional Appears: Non-toxic, No Acute Distress - Head Exam Head Exam: ATRAUMATIC, NORMOCEPHALIC - Eye Exam Eye Exam: EOMI, Normal appearance - ENT Exam ENT Exam: Mucous Membranes Moist - Respiratory Exam Respiratory Exam: NORMAL BREATHING PATTERN. absent: Respiratory Distress - Cardiovascular Exam Cardiovascular Exam: REGULAR RHYTHM - GI/Abdominal Exam GI & Abdominal Exam: Distended, Firm. absent: Guarding, Tenderness, Rebound Assessment and Plan - Assessment and Plan (Free Text) Assessment: 87 y/o female w/ liver mass Plan: -f/u final read of CT triple phase -tumor markers -possible IR biopsy -further recs per Dr. Shay [facility] PGY4 <Michel Shay - Last Filed: 09/12/18 07:40> Objective - Vital Signs/Intake and Output Vital Signs (last 24 hours): Temp Pulse Resp BP Pulse Ox 98.0 F 69 20 155/79 H 94 L 09/12/18 04:00 09/12/18 04:12 09/12/18 04:00 09/12/18 04:00 09/12/18 04:00 - Medications Medications: Current Medications Carvedilol (Coreg) 25 mg PO BID [facility] Last Admin: 09/11/18 18:44 Dose: 25 mg Docusate Sodium (Colace) 100 mg PO BID [facility] Last Admin: 09/11/18 17:38 Dose: 100 mg Heparin Sodium (Porcine) (Heparin) 5,000 units SC Q12 ERIN Last Admin: 09/11/18 21:42 Dose: 5,000 units Azithromycin (Zithromax 500mg In Ns Addvantage) 500 mg in 250 mls @ 167 mls/hr IVPB Q24H ERIN; Protocol Last Admin: 09/11/18 23:25 Dose: 167 mls/hr Metronidazole (Flagyl) 500 mg in 100 mls @ 100 mls/hr IVPB Q8H ERIN; Protocol Last Admin: 09/12/18 06:01 Dose: 100 mls/hr Meropenem 500 mg/ Sodium (Chloride) 100 mls @ 100 mls/hr IVPB Q8H ERIN; Protocol Last Admin: 09/12/18 04:36 Dose: 100 mls/hr Insulin Aspart (Novolog) 0 unit SC ACHS ERIN; Protocol Last Admin: 09/11/18 21:44 Dose: Not Given Insulin Glargine (Lantus) 10 unit SC Q12H ERIN Last Admin: 09/11/18 21:42 Dose: Not Given Polyethylene Glycol (Miralax) 17 gm PO BID [facility] Last Admin: 09/11/18 17:38 Dose: 17 gm - Labs Labs: 09/11/18 06:54 09/11/18 06:54 PT 14.7 SECONDS (9.7-12.2) H 09/10/18 11:23 INR 1.3 09/10/18 11:23 APTT 30 SECONDS (21-34) 09/08/18 14:44 Assessment and Plan - Assessment and Plan (Free Text) Plan: All medical record entries made by the resident were at my direction. I have reviewed the chart and agree that the record accurately reflects my personal performance of the history, physical exam, and medical decision making. 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 Await medical oncology input
--- NOTE | 2018-09-11 09:31 | CP.PCM.PN ---
<Low Figueroa - Last Filed: 09/11/18 09:55> Subjective - Date & Time of Evaluation Date of Evaluation: 09/11/18 Time of Evaluation: 09:55 - Subjective Subjective: No acute overnight events. She is feeling well except for bloating. She is tolerating her diet. Last BM was 2-3 days ago. 5pt ROS completed and negative except for above. Objective - Vital Signs/Intake and Output Vital Signs (last 24 hours): Temp Pulse Resp BP Pulse Ox 97.9 F 64 18 164/67 H 95 09/11/18 07:00 09/11/18 07:03 09/11/18 07:00 09/11/18 07:00 09/11/18 07:00 Intake and Output: 09/11/18 09/11/18 06:59 18:59 Intake Total 1390 Balance 1390 - Medications Medications: Current Medications Carvedilol (Coreg) 25 mg PO BID ERIN Last Admin: 09/10/18 17:21 Dose: Not Given Heparin Sodium (Porcine) (Heparin) 5,000 units SC Q12 ERIN Last Admin: 09/10/18 22:20 Dose: 5,000 units Sodium Chloride (Sodium Chloride 0.45%) 1,000 mls @ 80 mls/hr IV .[id number] ERIN Last Admin: 09/10/18 22:18 Dose: 80 mls/hr Azithromycin (Zithromax 500mg In Ns Addvantage) 500 mg in 250 mls @ 167 mls/hr IVPB Q24H ERIN; Protocol Last Admin: 09/10/18 23:06 Dose: 167 mls/hr Piperacillin Sod/Tazobactam Sod (Zosyn 2.25 Gm Iv Premix) 2.25 gm in 50 mls @ 100 mls/hr IVPB Q6H ERIN; Protocol Last Admin: 09/11/18 04:38 Dose: 100 mls/hr Metronidazole (Flagyl) 500 mg in 100 mls @ 100 mls/hr IVPB Q8H ERIN; Protocol Last Admin: 09/11/18 05:20 Dose: 100 mls/hr Insulin Aspart (Novolog) 0 unit SC ACHS ERIN; Protocol Last Admin: 09/11/18 07:49 Dose: Not Given Insulin Glargine (Lantus) 10 unit SC Q12H ERIN Last Admin: 09/10/18 22:18 Dose: 10 units - Labs Labs: 09/11/18 06:54 09/11/18 06:54 PT 14.7 SECONDS (9.7-12.2) H 09/10/18 11:23 INR 1.3 09/10/18 11:23 APTT 30 SECONDS (21-34) 09/08/18 14:44 - Constitutional Appears: Non-toxic, No Acute Distress - Head Exam Head Exam: ATRAUMATIC, NORMAL INSPECTION - Eye Exam Eye Exam: EOMI, Normal appearance - Respiratory Exam Respiratory Exam: Clear to Ausculation Bilateral, NORMAL BREATHING PATTERN - Cardiovascular Exam Cardiovascular Exam: REGULAR RHYTHM, +S1, +S2 - GI/Abdominal Exam GI & Abdominal Exam: Distended, Soft, Normal Bowel Sounds. absent: Tenderness - Extremities Exam Extremities Exam: Normal Inspection. absent: Pedal Edema - Neurological Exam Neurological Exam: Alert, Awake, Oriented x3 - Psychiatric Exam Psychiatric exam: Normal Affect, Normal Mood - Skin Skin Exam: Normal Color, Warm Assessment and Plan - Assessment and Plan (Free Text) Assessment: 87 year old female with PMH of HTN, DM, and Obesity presenting with bloating and weakness. GI consultation for liver lesion on CT A/P with ongoing treatment of Pneumonia and UTI. Prior colonoscopy endorsed over fifteen years ago to be normal. Plan: -09/08 MELD 18 -CT A/P and U/S- right hepatic 7.4x7.1cm lesion, porcelain gallbladder, cirrhosis -Differential includes HCC, metastatic disease, benign mass (FNH, adenoma, cyst, hemangioma etc) -follow up CT liver protocol -Would consider IR liver biopsy PENDING CT Liver results -normal AFP, and elevated CA 19-9 347 -Hepatitis panel negative, pending autoimmune serologies, iron, TSH -low sodium diet, Ensure TID -will follow clinical course Case discussed with Dr. Castillo, see attestation. <Vineet Castillo - Last Filed: 09/11/18 10:23> Objective - Vital Signs/Intake and Output Vital Signs (last 24 hours): Temp Pulse Resp BP Pulse Ox 97.9 F 64 18 164/67 H 95 09/11/18 07:00 09/11/18 07:03 09/11/18 07:00 09/11/18 07:00 09/11/18 07:00 Intake and Output: 09/11/18 09/11/18 06:59 18:59 Intake Total 1390 Balance 1390 - Medications Medications: Current Medications Carvedilol (Coreg) 25 mg PO BID [facility] Last Admin: 09/10/18 17:21 Dose: Not Given Docusate Sodium (Colace) 100 mg PO BID [facility] Heparin Sodium (Porcine) (Heparin) 5,000 units SC Q12 ERIN Last Admin: 09/10/18 22:20 Dose: 5,000 units Sodium Chloride (Sodium Chloride 0.45%) 1,000 mls @ 80 mls/hr IV .[id number] ERIN Last Admin: 09/10/18 22:18 Dose: 80 mls/hr Azithromycin (Zithromax 500mg In Ns Addvantage) 500 mg in 250 mls @ 167 mls/hr IVPB Q24H ERIN; Protocol Last Admin: 09/10/18 23:06 Dose: 167 mls/hr Piperacillin Sod/Tazobactam Sod (Zosyn 2.25 Gm Iv Premix) 2.25 gm in 50 mls @ 100 mls/hr IVPB Q6H ERIN; Protocol Last Admin: 09/11/18 04:38 Dose: 100 mls/hr Metronidazole (Flagyl) 500 mg in 100 mls @ 100 mls/hr IVPB Q8H ERIN; Protocol Last Admin: 09/11/18 05:20 Dose: 100 mls/hr Insulin Aspart (Novolog) 0 unit SC ACHS ERIN; Protocol Last Admin: 09/11/18 07:49 Dose: Not Given Insulin Glargine (Lantus) 10 unit SC Q12H ERIN Last Admin: 09/10/18 22:18 Dose: 10 units Polyethylene Glycol (Miralax) 17 gm PO BID [facility] - Labs Labs: 09/11/18 06:54 09/11/18 06:54 PT 14.7 SECONDS (9.7-12.2) H 09/10/18 11:23 INR 1.3 09/10/18 11:23 APTT 30 SECONDS (21-34) 09/08/18 14:44 Attending/Attestation - Attestation I have personally seen and examined this patient.: Yes I have fully participated in the care of the patient.: Yes I have reviewed all pertinent clinical information, including history, physical exam and plan: Yes Notes (Text): 09/11/18 10:20 I have seen and examined patient with GI fellow. No acute events overnight, she is seen resting in bed comfortably. She reports ongoing abdominal bloating but denies nausea, vomiting, fever/chills. No bowel movement in past 48 hours. Tolerating PO diet without difficulty. DM/HTN Pneumonia/UTI Cirrhosis - etiology unclear Liver lesion, normal AFP - Low sodium diabetic diet as tolerated - LFTs remain unchanged, will continue to monitor - Awaiting autoimmune serology testing results - Awaiting results from triple phase liver CT - Will continue to monitor patient clinical course
[2018-09-11] MEDS ORDERED: Absorbable Gelatin Sponge Size 12-7 ONE (09:54)
[2018-09-11] MEDS ORDERED: Midazolam 2 MG/2 ML VIAL ONE (09:54)
[2018-09-11 10:15] LABS: ANISOCYTOSIS SLIGHT; EOSINOPHIL 3 % (0-4); HYPOCHROMIC SLIGHT; LYMPHOCYTE 7 % (20-40); MONOCYTE 5 % (0-10); NEUTROPHIL 87 % (50-75); PLATELET ESTIMATE NORMAL (NORMAL); POIKILOCYTOSIS SLIGHT; TOTAL CELLS COUNTED 100
[2018-09-11] MEDS: POLYETHYLENE GLYCOL 3350 17 GM/Dose PACKET PO SCH ×2 (10:47→17:38)
[2018-09-11] MEDS: (Lantus) Insulin Glargine, Recombinant SC SCH ×2 (10:47→21:42)
--- NOTE | 2018-09-11 10:51 | PCM.SURG1 ---
Surgeon's Initial Post Op Note - Surgeon's Notes Surgeon: Oscar Schaffer MD Copy Worker: NONE Type of Anesthesia: Moderate Sedation{RN} Pre-Operative Diagnosis: Liver mass Operative Findings: US showed complex liver masses Post-Operative Diagnosis: Liver mass Operation Performed: US guided core biopsy Specimen/Specimens Removed: 18 g core x 4 Estimated Blood Loss: EBL {In ML}: 2 Blood Products Given: N/A Drains Used: No Drains Post-Op Condition: Fair Date of Surgery/Procedure: 09/11/18 Time of Surgery/Procedure: 10:00
--- NOTE | 2018-09-11 11:39 | CT ---
Date of service: 09/10/2018 CT Liver Protocol without/with IV contrast Indication: liver mass Technique: Contiguous axial images of the abdomen and pelvis without & with IV contrast utilizing liver protocol. Coronal and Sagittal reformats generated and reviewed. This CT exam was performed using 1 or more of the following dose reduction techniques: Automated exposure control, adjustment of the MAA and/or kV according to patient size, and/or use of iterative reconstruction technique. Contrast: 100 mL Visipaque 320 Radiation dose: Total exam DLP = 2319.67 MGy-cm. Comparison: CT abdomen and pelvis without contrast performed 09/08/18, abdominal ultrasound performed 09/09/18 Findings: Partially imaged cardiomegaly. Small to moderate right and small left pleural effusions and associated consolidations. No visible pneumothorax. Partially imaged scattered small nodular opacities in the right middle lobe. 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 Possible pseudo thrombus of the main portal vein resultant from attenuation of the vessel from adjacent hypodense mass and volume averaging. Nodular hepatic contour. Heterogeneous hepatic echotexture. Intrahepatic biliary ductal dilatation. Numerous hepatic masses several of which appear cystic throughout the liver, largest at the right inferior lobe measuring approximately 8.2 x 7.3 cm. Appearance most compatible with hepatic metastases. Heterogeneous splenic parenchyma. Pancreatic atrophy. Left adrenal gland hypertrophy. The right adrenal gland appears unremarkable. Distended gallbladder with peripheral calcifications along the wall consistent with porcelain gallbladder. The kidneys enhance symmetrically. No evidence of hydronephrosis or obstructing calculus. Abdominal ascites predominantly perihepatic and perisplenic with extension to the pericolic gutters, greater on the right. 16 mm cardiophrenic lymph node may be partially necrotic. Extensive nodular soft tissue predominantly within the right upper quadrant anterior to the liver worrisome for carcinomatosis. The stomach is nondistended. Lack of oral contrast limits evaluation for bowel pathology. Abnormal thick-walled appearance of the proximal transverse colon; correlate clinically for possibility of colitis. Alternatively, malignant neoplasm may be considered. Thick-walled upper abdominal small bowel loops concerning for enteritis. Correlate clinically. No definite free air. Degenerative changes of the spine. 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 Possible pseudo thrombus of the main portal vein resultant from attenuation of the vessel from adjacent hypodense mass and volume averaging. Nodular hepatic contour. Heterogeneous hepatic echotexture. Intrahepatic biliary ductal dilatation. Numerous hepatic masses several of which appear cystic throughout the liver, largest at the right inferior lobe measuring approximately 8.2 x 7.3 cm. Appearance most compatible with hepatic metastases. Heterogeneous splenic parenchyma. Pancreatic atrophy. Distended gallbladder with peripheral calcifications along the wall consistent with porcelain gallbladder. Abdominal ascites predominantly perihepatic and perisplenic with extension to the pericolic gutters, greater on the right. 16 mm cardiophrenic lymph node may be partially necrotic. Extensive nodular soft tissue predominantly within the right upper quadrant anterior to the liver worrisome for carcinomatosis. Abnormal thick-walled appearance of the proximal transverse colon; correlate clinically for possibility of colitis. Alternatively, malignant neoplasm may be considered. Wall thickening upper abdominal small bowel loops concerning for enteritis. Correlate clinically. Small to moderate right and small left pleural effusions and associated consolidations. Partially imaged scattered small nodular opacities in the right middle lobe. Additional findings as above. Findings discussed with the patient's RN Natalia on 09/11/18 at 11:24 a.m.
--- NOTE | 2018-09-11 12:12 | US ---
PROCEDURE: Date of procedure: 09/11/2018 Procedure: Ultrasound-guided percutaneous core biopsy of liver mass Medications: 1 milligram Versed, 50 microgram fentanyl, 8 cubic centimeters 2 percent lidocaine HISTORY: Liver Mass TECHNIQUE: Following informed consent and procedure time-out, the patient was placed supine on bed and limited ultrasound showed liver mass within the right hepatic lobe. After the patient abdomen was prepped and draped in the usual sterile fashion and the skin anesthetized with lidocaine, an 18 gauge core needle was advanced percutaneously under direct ultrasound guidance into the mass. Upon confirmation of needle position, three core specimens were obtained and sent for routine pathology. The biopsy track was then embolized with Gelfoam. A post biopsy ultrasound performed showed no hematoma. A dressing was applied. IMPRESSION: Ultrasound-guided core biopsy of liver mass.
[2018-09-11] MEDS: Meropenem 500 MG in Sodium Chloride 0.9% 100 ML IVPB SCH ×2 (12:18→20:00)
[2018-09-11] MEDS: Azithromycin 500mg/250ML NS 500 MG/250 ML BAG IVPB SCH (23:25)
[2018-09-12] MEDS: Meropenem 500 MG in Sodium Chloride 0.9% 100 ML IVPB SCH ×3 (04:36→20:00)
[2018-09-12] MEDS: metroNIDAZOLE IV 500 mg/100 ml 500 MG/100 ML BAG IVPB SCH ×3 (06:01→21:00)
[2018-09-12] MEDS: (Novolog) Insulin Aspart, Recombinant 100 u/ml 10 ml vial SC SCH ×4 (07:41→21:15)
[2018-09-12 07:50] LABS: ALB/GLOB RATIO 0.9 (1.0-2.1); ALBUMIN 2.8 g/dL (3.5-5.0); CALCIUM 9.1 mg/dl (8.6-10.4)
[2018-09-12 07:54] LABS: BASO % 0.2 % (0.0-2.0); EOS # 0.2 K/uL (0.0-0.7); EOS % 0.7 % (0.0-4.0); HEMOGLOBIN 8.3 g/dL (11.0-16.0); LYMPH # 1.5 K/uL (1.0-4.3); LYMPH % 5.9 % (20.0-40.0); MEAN CELL VOLUME 79.8 fL (81.0-99.0); MEAN CORPUSCULAR HEMOGLOBIN 25.8 pg (27.0-31.0); MEAN CORPUSCULAR HGB CONC 32.3 g/dL (33.0-37.0); MEAN PLATELET VOLUME 9.8 fL (7.2-11.7); MONO # 1.4 K/uL (0.0-0.8); MONO % 5.3 % (0.0-10.0); NEUT # 22.2 K/uL (1.8-7.0); NEUT % 87.9 % (50.0-75.0); NRBC % 0.1 % (0.0-2.0); PLATELET COUNT 189 K/uL (130-400); RBC 3.23 Mil/uL (3.80-5.20); RED CELL DISTRIBUTION WIDTH 17.4 % (11.5-14.5); WHITE BLOOD COUNT 25.3 K/uL (4.8-10.8)
[2018-09-12] MEDS: (Lantus) Insulin Glargine, Recombinant SC SCH ×2 (09:24→21:16)
[2018-09-12] MEDS: POLYETHYLENE GLYCOL 3350 17 GM/Dose PACKET PO SCH ×2 (09:27→18:05)
[2018-09-12 09:56] LABS: ANISOCYTOSIS SLIGHT; HYPOCHROMIC SLIGHT; LYMPHOCYTE 9 % (20-40); MONOCYTE 3 % (0-10); NEUTROPHIL 88 % (50-75); PLATELET ESTIMATE NORMAL (NORMAL); POIKILOCYTOSIS SLIGHT; TOTAL CELLS COUNTED 100
--- NOTE | 2018-09-12 09:59 | CP.PCM.PN ---
<Low Figueroa - Last Filed: 09/12/18 09:54> Subjective - Date & Time of Evaluation Date of Evaluation: 09/12/18 Time of Evaluation: 09:54 - Subjective Subjective: Patient had BM yesterday and feeling better. She also had liver biopsy without complications. No acute overnight events, afebrile, HDS. Tolerating diet. Objective - Vital Signs/Intake and Output Vital Signs (last 24 hours): Temp Pulse Resp BP Pulse Ox 98.0 F 63 18 154/85 H 98 09/12/18 07:00 09/12/18 07:00 09/12/18 07:00 09/12/18 09:27 09/12/18 07:00 Intake and Output: 09/12/18 09/12/18 06:59 18:59 Intake Total 570 Balance 570 - Medications Medications: Current Medications Carvedilol (Coreg) 25 mg PO BID [facility] Last Admin: 09/12/18 09:27 Dose: 25 mg Docusate Sodium (Colace) 100 mg PO BID [facility] Last Admin: 09/12/18 09:19 Dose: 100 mg Heparin Sodium (Porcine) (Heparin) 5,000 units SC Q12 ERIN Last Admin: 09/12/18 09:20 Dose: 5,000 units Azithromycin (Zithromax 500mg In Ns Addvantage) 500 mg in 250 mls @ 167 mls/hr IVPB Q24H ERIN; Protocol Last Admin: 09/11/18 23:25 Dose: 167 mls/hr Metronidazole (Flagyl) 500 mg in 100 mls @ 100 mls/hr IVPB Q8H ERIN; Protocol Last Admin: 09/12/18 06:01 Dose: 100 mls/hr Meropenem 500 mg/ Sodium (Chloride) 100 mls @ 100 mls/hr IVPB Q8H ERIN; Protocol Last Admin: 09/12/18 04:36 Dose: 100 mls/hr Insulin Aspart (Novolog) 0 unit SC ACHS ERIN; Protocol Last Admin: 09/12/18 07:41 Dose: Not Given Insulin Glargine (Lantus) 10 unit SC Q12H ERIN Last Admin: 09/12/18 09:24 Dose: Not Given Polyethylene Glycol (Miralax) 17 gm PO BID ERIN Last Admin: 09/12/18 09:27 Dose: 17 gm - Labs Labs: 09/12/18 07:12 09/12/18 07:12 PT 14.7 SECONDS (9.7-12.2) H 09/10/18 11:23 INR 1.3 09/10/18 11:23 APTT 30 SECONDS (21-34) 09/08/18 14:44 - Constitutional Appears: Non-toxic, No Acute Distress - Head Exam Head Exam: NORMAL INSPECTION, NORMOCEPHALIC - ENT Exam ENT Exam: Mucous Membranes Moist, Normal Exam - Respiratory Exam Respiratory Exam: Clear to Ausculation Bilateral, NORMAL BREATHING PATTERN - Cardiovascular Exam Cardiovascular Exam: REGULAR RHYTHM, +S1, +S2 - GI/Abdominal Exam GI & Abdominal Exam: Distended, Soft, Normal Bowel Sounds. absent: Tenderness - Extremities Exam Extremities Exam: Pedal Edema - Neurological Exam Neurological Exam: Alert, Awake, Oriented x3 - Psychiatric Exam Psychiatric exam: Normal Affect, Normal Mood - Skin Skin Exam: Normal Color, Warm Assessment and Plan - Assessment and Plan (Free Text) Assessment: 87 year old female with PMH of HTN, DM, and Obesity presenting with bloating and weakness. GI consultation for liver lesion on CT A/P with ongoing treatment of Pneumonia and UTI. Prior colonoscopy endorsed over fifteen years ago to be normal. 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 -Liver biopsy 09/11/18 - results PENDING -normal AFP, and elevated CA 19-9 347 -Hepatitis panel negative, pending autoimmune serologies, iron, TSH -low sodium diet, Ensure TID -Regarding abnormal colon finding on CT, we will consider colonoscopy for d iagnostic/management purposes based on liver biopsy results and patient's goals. -will follow clinical course Case discussed with Dr. Castillo, see attestation. <Vineet Castillo - Last Filed: 09/12/18 10:10> Objective - Vital Signs/Intake and Output Vital Signs (last 24 hours): Temp Pulse Resp BP Pulse Ox 98.0 F 63 18 154/85 H 98 09/12/18 07:00 09/12/18 07:00 09/12/18 07:00 09/12/18 09:27 09/12/18 07:00 Intake and Output: 09/12/18 09/12/18 06:59 18:59 Intake Total 570 Balance 570 - Medications Medications: Current Medications Carvedilol (Coreg) 25 mg PO BID [facility] Last Admin: 09/12/18 09:27 Dose: 25 mg Docusate Sodium (Colace) 100 mg PO BID ERIN Last Admin: 09/12/18 09:19 Dose: 100 mg Heparin Sodium (Porcine) (Heparin) 5,000 units SC Q12 ERIN Last Admin: 09/12/18 09:20 Dose: 5,000 units Azithromycin (Zithromax 500mg In Ns Addvantage) 500 mg in 250 mls @ 167 mls/hr IVPB Q24H ERIN; Protocol Last Admin: 09/11/18 23:25 Dose: 167 mls/hr Metronidazole (Flagyl) 500 mg in 100 mls @ 100 mls/hr IVPB Q8H ERIN; Protocol Last Admin: 09/12/18 06:01 Dose: 100 mls/hr Meropenem 500 mg/ Sodium (Chloride) 100 mls @ 100 mls/hr IVPB Q8H ERIN; Protocol Last Admin: 09/12/18 04:36 Dose: 100 mls/hr Insulin Aspart (Novolog) 0 unit SC ACHS ERIN; Protocol Last Admin: 09/12/18 07:41 Dose: Not Given Insulin Glargine (Lantus) 10 unit SC Q12H ERIN Last Admin: 09/12/18 09:24 Dose: Not Given Polyethylene Glycol (Miralax) 17 gm PO BID ERIN Last Admin: 09/12/18 09:27 Dose: 17 gm - Labs Labs: 09/12/18 07:12 09/12/18 07:12 PT 14.7 SECONDS (9.7-12.2) H 09/10/18 11:23 INR 1.3 09/10/18 11:23 APTT 30 SECONDS (21-34) 09/08/18 14:44 Attending/Attestation - Attestation I have personally seen and examined this patient.: Yes I have fully participated in the care of the patient.: Yes I have reviewed all pertinent clinical information, including history, physical exam and plan: Yes Notes (Text): 09/12/18 10:07 I have seen and examined patient with GI fellow. No acute events overnight, bloating improved following large bowel movement yesterday. She denies nausea, vomiting, fever/chills. Tolerating PO diet without difficulty. s/p IR guided liver biopsy yesterday. HTN/DM Cirrhosis, etiology unclear, possibly HOUSE CT liver reviewed by me showing multiple hepatic lesions concerning for metastatic disease, porcelain GB Pneumonia/UTI - Low sodium diet as tolerated - Continue to monitor LFTs - Awaiting results from IR guided liver biopsy - May consider colonoscopy given irregular appearance of colon in this clinical setting with metastatic disease. Will await final pathology read and discuss patient goals of care prior to proceeding. - Will continue to monitor patient clinical course
--- NOTE | 2018-09-12 15:34 | CP.PCM.PN ---
Subjective - Date & Time of Evaluation Date of Evaluation: 09/12/18 Time of Evaluation: 15:34 - Subjective Subjective: AFEBRILE, C/O DRY COUGH INTERMITTENT. ABDOMINAL BLOATING NO NEW COMPLAINTS. S/P LIVER BX 09/11/18. FAMILY AT BEDSIDE. 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, porcelain GB, carcinomatosis, proximal transverse colon thickening/mass, Lung effusion and nodules.( SEE FULL REPORT ) Objective - Vital Signs/Intake and Output Vital Signs (last 24 hours): Temp Pulse Resp BP Pulse Ox 98.0 F 54 L 18 154/85 H 98 09/12/18 07:00 09/12/18 12:22 09/12/18 07:00 09/12/18 09:27 09/12/18 07:00 Intake and Output: 09/12/18 09/12/18 06:59 18:59 Intake Total 570 450 Balance 570 450 - Medications Medications: Current Medications Carvedilol (Coreg) 25 mg PO BID [facility] Last Admin: 09/12/18 09:27 Dose: 25 mg Docusate Sodium (Colace) 100 mg PO BID [facility] Last Admin: 09/12/18 09:19 Dose: 100 mg Heparin Sodium (Porcine) (Heparin) 5,000 units SC Q12 ERIN Last Admin: 09/12/18 09:20 Dose: 5,000 units Metronidazole (Flagyl) 500 mg in 100 mls @ 100 mls/hr IVPB Q8H ERIN; Protocol Last Admin: 09/12/18 14:00 Dose: 100 mls/hr Meropenem 500 mg/ Sodium (Chloride) 100 mls @ 100 mls/hr IVPB Q8H ERIN; Protocol Last Admin: 09/12/18 12:08 Dose: 100 mls/hr Azithromycin 500 mg/ Sodium (Chloride) 250 mls @ 250 mls/hr IVPB Q24H ERIN; Protocol Insulin Aspart (Novolog) 0 unit SC ACHS ERIN; Protocol Last Admin: 09/12/18 12:10 Dose: Not Given Insulin Glargine (Lantus) 10 unit SC Q12H ERIN Last Admin: 09/12/18 09:24 Dose: Not Given Polyethylene Glycol (Miralax) 17 gm PO BID ERIN Last Admin: 09/12/18 09:27 Dose: 17 gm - Labs Labs: 09/12/18 07:12 09/12/18 07:12 PT 14.7 SECONDS (9.7-12.2) H 09/10/18 11:23 INR 1.3 09/10/18 11:23 APTT 30 SECONDS (21-34) 09/08/18 14:44 - Constitutional Appears: No Acute Distress - Head Exam Head Exam: NORMAL INSPECTION - Eye Exam Eye Exam: EOMI, PERRL. absent: Scleral icterus - ENT Exam ENT Exam: Normal Oropharynx - Neck Exam Neck Exam: Normal Inspection - Respiratory Exam Respiratory Exam: Prolonged Expiratory Phase, NORMAL BREATHING PATTERN - Cardiovascular Exam Cardiovascular Exam: REGULAR RHYTHM, +S1, +S2 - GI/Abdominal Exam GI & Abdominal Exam: Distended, Soft, Normal Bowel Sounds. absent: Guarding - Extremities Exam Extremities Exam: Normal Capillary Refill. absent: Calf Tenderness, Pedal Edema - Neurological Exam Neurological Exam: Awake, CN II-XII Intact, Oriented x3, Reflexes Normal - Psychiatric Exam Psychiatric exam: Normal Mood - Skin Skin Exam: Warm Assessment and Plan (1) Abdominal pain Status: Acute (2) Pneumonia Status: Acute (3) UTI (urinary tract infection) Status: Acute (4) Leukocytosis Status: Acute (5) Liver mass Status: Acute (6) Anemia Status: Acute - Assessment and Plan (Free Text) Plan: OFF iv ZOSYN 2.25 G iv PIGGYBACK EVERY 6 HOURLY 09/09/18.-09/11/18 ON IV MERREM 500MG IVPB Q 8HRLY 09/11/18 CONTINUE iv ZITHROMAX 500 MG ONCE A DAY DAILY 09/08/18/. ON iv FLAGYL 500 MG EVERY 8 HOURLY 09/10/18. F/U LIVER BX . CT LIVER TRIPLE PHASE PER SURGERY DR REMY - FINDINGS NOTED FAMILY AT BEDSIDE PER CONSULTANTS.
[2018-09-12] MEDS: Sodium Chloride 0.9% 1,000 ML IV SCH (18:05)
[2018-09-12] MEDS: Azithromycin 500 MG in Sodium Chloride 0.9% 250 ML IVPB SCH (22:04)
--- NOTE | 2018-09-12 22:20 | PN ---
DATE: 09/11/2018 LATE ENTRY DAILY VISIT SUBJECTIVE: The patient was seen on 09/11/2018. She was still feeling bloated, status post liver biopsy on 09/11/2018. The patient tolerated the procedure well. PHYSICAL EXAMINATION: VITAL SIGNS: Blood pressure 160/65, temperature 98.2, respiratory rate 18 and pulse 54. HEENT: Pupils are equal and reactive to light. Pale mucosa of the conjunctivae. NECK: Supple. No JVD. No carotid bruit. No lymph node. No thyromegaly. CHEST AND LUNGS: Bilateral symmetrical expansion. Good air exchange. Decreased air entry both lower lung barrios. CARDIOVASCULAR SYSTEM: PMI not localized. S1 and S2. No additional sounds. ABDOMEN: There is a mass palpable at the right upper quadrant. No tenderness. No organomegaly. No ascites could be appreciated. EXTREMITIES: No cyanosis. No clubbing. No edema. CENTRAL NERVOUS SYSTEM: Alert, awake, oriented x2. The patient has neurosensory deafness. ASSESSMENT: 1. 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 2. Porcelain gallbladder. 3. Pneumonia. 4. Urinary tract infection. 5. Hypertension. 6. Type 2 diabetes mellitus with hyperglycemia. PLAN: Follow the pathology of the biopsy that was taken from the liver. Continue current IV antibiotics. Follow recommendations of GI and Infectious Disease. Follow recommendation of Hematology/Oncology also. Smitha Gan MD
--- NOTE | 2018-09-12 22:32 | PN ---
DATE: 09/12/2018 DAILY PROGRESS NOTE SUBJECTIVE: The patient is seen today, 09/12/2018. She is not in any cardiopulmonary distress. PHYSICAL EXAMINATION: VITAL SIGNS: Blood pressure is 132/66, temperature 98.1, respiratory rate 18, and pulse 55. HEENT: Pupils equal and reactive to light. Normal-appearing mucosa of the conjunctivae, oropharynx and nasal membrane mucosa is pale. NECK: Supple. No JVD. No carotid bruit. No lymph nodes. No thyromegaly. CHEST AND LUNGS: Bilateral symmetrical expansion. Good air exchange. No rales. No rhonchi. CARDIOVASCULAR SYSTEM: PMI not localized. S1 and S2. No additional sounds. ABDOMEN: Right upper quadrant mass. No tenderness. No organomegaly. EXTREMITIES: No cyanosis. No clubbing. No edema. CENTRAL NERVOUS SYSTEM: Alert, awake, oriented x2. No neurological deficit could be appreciated. LABORATORY DATA: White blood cell count 25.3, hemoglobin 8.3, hematocrit 25.7. BUN of 42 and creatinine of 1.6. ASSESSMENT: 1. 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 2. Porcelain gallbladder. 3. Chronic kidney disease with elevation of the blood urea nitrogen and creatinine. 4. Anemia, multifactorial. 5. Type 2 diabetes mellitus with hyperglycemia. 6. Pneumonia. 7. Urinary tract infection. 8. Leucocytosis, on multiple antibiotics, likely reactive secondary to underlying malignancy PLAN: Follow pathology report. Follow ID , GI, and Hematology/Oncology recommendations. We will start the patient on IV fluid as BUN and creatinine went up. Smitha Gan MD [facility]
--- NOTE | 2018-09-12 23:46 | CP.PCM.PN ---
Subjective - Date & Time of Evaluation Date of Evaluation: 09/11/18 Time of Evaluation: 20:00 - Subjective Subjective: s/p percutaneous liver lesion biopsy Objective - Vital Signs/Intake and Output Vital Signs (last 24 hours): Temp Pulse Resp BP Pulse Ox 98.1 F 56 L 18 132/71 98 09/12/18 15:03 09/12/18 16:00 09/12/18 15:03 09/12/18 18:06 09/12/18 15:03 Intake and Output: 09/12/18 09/13/18 18:59 06:59 Intake Total 450 Balance 450 - Medications Medications: Current Medications Carvedilol (Coreg) 25 mg PO BID [facility] Last Admin: 09/12/18 18:06 Dose: 25 mg Docusate Sodium (Colace) 100 mg PO BID [facility] Last Admin: 09/12/18 18:05 Dose: 100 mg Metronidazole (Flagyl) 500 mg in 100 mls @ 100 mls/hr IVPB Q8H [facility]; Protocol Last Admin: 09/12/18 21:00 Dose: 100 mls/hr Meropenem 500 mg/ Sodium (Chloride) 100 mls @ 100 mls/hr IVPB Q8H [facility]; Protocol Last Admin: 09/12/18 20:00 Dose: 100 mls/hr Azithromycin 500 mg/ Sodium (Chloride) 250 mls @ 250 mls/hr IVPB Q24H [facility]; Protocol Last Admin: 09/12/18 22:04 Dose: 250 mls/hr Sodium Chloride (Sodium Chloride 0.9%) 1,000 mls @ 80 mls/hr IV .[id number] [facility] Last Admin: 09/12/18 18:05 Dose: 80 mls/hr Insulin Aspart (Novolog) 0 unit SC ACHS [facility]; Protocol Last Admin: 09/12/18 21:15 Dose: Not Given Insulin Glargine (Lantus) 10 unit SC Q12H [facility] Last Admin: 09/12/18 21:16 Dose: Not Given Polyethylene Glycol (Miralax) 17 gm PO BID [facility] Last Admin: 09/12/18 18:05 Dose: 17 gm - Labs Labs: 09/12/18 07:12 09/12/18 07:12 PT 14.7 SECONDS (9.7-12.2) H 09/10/18 11:23 INR 1.3 09/10/18 11:23 APTT 30 SECONDS (21-34) 09/08/18 14:44 - Head Exam Head Exam: ATRAUMATIC - Eye Exam Eye Exam: Normal appearance - ENT Exam ENT Exam: Mucous Membranes Dry - Respiratory Exam Respiratory Exam: NORMAL BREATHING PATTERN - Cardiovascular Exam Cardiovascular Exam: +S1, +S2 - GI/Abdominal Exam GI & Abdominal Exam: Normal Bowel Sounds Assessment and Plan (1) Liver mass Assessment & Plan: s/p percutaneous liver lesion biopsy normal AFP and CEA, elevated CA19-[address] concerning for multiple liver lesions further treatment recommendations based on pathology Status: Acute (2) Anemia Assessment & Plan: 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
--- NOTE | 2018-09-12 23:48 | CP.PCM.PN ---
Subjective - Date & Time of Evaluation Date of Evaluation: 09/12/18 Time of Evaluation: 19:00 - Subjective Subjective: No complaints, sons at bedside. Updated family on imaging and awaiting biopsy results. Objective - Vital Signs/Intake and Output Vital Signs (last 24 hours): Temp Pulse Resp BP Pulse Ox 98.1 F 56 L 18 132/71 98 09/12/18 15:03 09/12/18 16:00 09/12/18 15:03 09/12/18 18:06 09/12/18 15:03 Intake and Output: 09/12/18 09/13/18 18:59 06:59 Intake Total 450 Balance 450 - Medications Medications: Current Medications Carvedilol (Coreg) 25 mg PO BID [facility] Last Admin: 09/12/18 18:06 Dose: 25 mg Docusate Sodium (Colace) 100 mg PO BID [facility] Last Admin: 09/12/18 18:05 Dose: 100 mg Metronidazole (Flagyl) 500 mg in 100 mls @ 100 mls/hr IVPB Q8H [facility]; Protocol Last Admin: 09/12/18 21:00 Dose: 100 mls/hr Meropenem 500 mg/ Sodium (Chloride) 100 mls @ 100 mls/hr IVPB Q8H [facility]; Protocol Last Admin: 09/12/18 20:00 Dose: 100 mls/hr Azithromycin 500 mg/ Sodium (Chloride) 250 mls @ 250 mls/hr IVPB Q24H [facility]; Protocol Last Admin: 09/12/18 22:04 Dose: 250 mls/hr Sodium Chloride (Sodium Chloride 0.9%) 1,000 mls @ 80 mls/hr IV .[id number] [facility] Last Admin: 09/12/18 18:05 Dose: 80 mls/hr Insulin Aspart (Novolog) 0 unit SC ACHS [facility]; Protocol Last Admin: 09/12/18 21:15 Dose: Not Given Insulin Glargine (Lantus) 10 unit SC Q12H [facility] Last Admin: 09/12/18 21:16 Dose: Not Given Polyethylene Glycol (Miralax) 17 gm PO BID [facility] Last Admin: 09/12/18 18:05 Dose: 17 gm - Labs Labs: 09/12/18 07:12 09/12/18 07:12 PT 14.7 SECONDS (9.7-12.2) H 09/10/18 11:23 INR 1.3 09/10/18 11:23 APTT 30 SECONDS (21-34) 09/08/18 14:44 - Head Exam Head Exam: ATRAUMATIC - Eye Exam Eye Exam: Normal appearance - ENT Exam ENT Exam: Mucous Membranes Dry - Respiratory Exam Respiratory Exam: NORMAL BREATHING PATTERN - Cardiovascular Exam Cardiovascular Exam: +S1, +S2 - GI/Abdominal Exam GI & Abdominal Exam: Normal Bowel Sounds Assessment and Plan (1) Liver mass Assessment & Plan: s/p percutaneous liver lesion biopsy normal AFP and CEA, elevated CA19-[address] concerning for multiple liver lesions further treatment recommendations based on pathology Status: Acute (2) Anemia Assessment & Plan: 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
[2018-09-13] MEDS: Meropenem 500 MG in Sodium Chloride 0.9% 100 ML IVPB SCH ×3 (03:11→23:59)
--- NOTE | 2018-09-13 03:33 | CARD ---
APPROVED REPORT Date of service: 09/08/2018 EKG Measurement Heart [id number] <Conclusion> Normal sinus rhythm Possible Left atrial enlargement Left ventricular hypertrophy Nonspecific ST abnormality Abnormal ECG
[2018-09-13] MEDS: metroNIDAZOLE IV 500 mg/100 ml 500 MG/100 ML BAG IVPB SCH ×3 (05:16→21:00)
[2018-09-13] MEDS: (Novolog) Insulin Aspart, Recombinant 100 u/ml 10 ml vial SC SCH ×4 (08:03→21:02)
[2018-09-13] MEDS: POLYETHYLENE GLYCOL 3350 17 GM/Dose PACKET PO SCH ×2 (09:27→17:15)
[2018-09-13] MEDS: (Lantus) Insulin Glargine, Recombinant SC SCH ×2 (09:28→22:00)
[2018-09-13] MEDS: Sodium Chloride 0.9% 1,000 ML IV SCH ×2 (11:28→19:00)
--- NOTE | 2018-09-13 12:23 | CP.PCM.PN ---
<FarzanehrachelelbaLow - Last Filed: 09/13/18 14:41> Subjective - Date & Time of Evaluation Date of Evaluation: 09/13/18 Time of Evaluation: 12:21 - Subjective Subjective: Patient denies abdominal pain. She is passing some stool. Admits mild bloating. Poor PO intake. HDS, afeb. Objective - Vital Signs/Intake and Output Vital Signs (last 24 hours): Temp Pulse Resp BP Pulse Ox 97.4 F L 55 L 18 147/77 99 09/13/18 07:00 09/13/18 07:30 09/13/18 07:00 09/13/18 09:27 09/13/18 07:00 - Medications Medications: Current Medications Carvedilol (Coreg) 25 mg PO BID [facility] Last Admin: 09/13/18 09:27 Dose: 25 mg Docusate Sodium (Colace) 100 mg PO BID [facility] Last Admin: 09/13/18 09:27 Dose: 100 mg Metronidazole (Flagyl) 500 mg in 100 mls @ 100 mls/hr IVPB Q8H [facility]; Protocol Last Admin: 09/13/18 05:16 Dose: 100 mls/hr Meropenem 500 mg/ Sodium (Chloride) 100 mls @ 100 mls/hr IVPB Q8H [facility]; Protocol Last Admin: 09/13/18 11:27 Dose: 100 mls/hr Azithromycin 500 mg/ Sodium (Chloride) 250 mls @ 250 mls/hr IVPB Q24H [facility]; Protocol Last Admin: 09/12/18 22:04 Dose: 250 mls/hr Sodium Chloride (Sodium Chloride 0.9%) 1,000 mls @ 80 mls/hr IV .[id number] [facility] Last Admin: 09/13/18 11:28 Dose: 80 mls/hr Insulin Aspart (Novolog) 0 unit SC ACHS ER[facility]; Protocol Last Admin: 09/13/18 08:03 Dose: Not Given Insulin Glargine (Lantus) 10 unit SC Q12H [facility] Last Admin: 09/13/18 09:28 Dose: Not Given Polyethylene Glycol (Miralax) 17 gm PO BID [facility] Last Admin: 09/13/18 09:27 Dose: 17 gm - Labs Labs: 09/12/18 07:12 09/12/18 07:12 PT 14.7 SECONDS (9.7-12.2) H 09/10/18 11:23 INR 1.3 09/10/18 11:23 APTT 30 SECONDS (21-34) 09/08/18 14:44 - Constitutional Appears: Non-toxic, No Acute Distress - Head Exam Head Exam: ATRAUMATIC, NORMAL INSPECTION - Respiratory Exam Respiratory Exam: Clear to Ausculation Bilateral, NORMAL BREATHING PATTERN - Cardiovascular Exam Cardiovascular Exam: REGULAR RHYTHM, +S1, +S2 - GI/Abdominal Exam GI & Abdominal Exam: Soft, Normal Bowel Sounds. absent: Tenderness - Extremities Exam Extremities Exam: Pedal Edema. absent: Normal Inspection - Neurological Exam Neurological Exam: Alert, Awake, Oriented x3 - Psychiatric Exam Psychiatric exam: Normal Affect, Normal Mood - Skin Skin Exam: Normal Color, Warm Assessment and Plan - Assessment and Plan (Free Text) Assessment: 87 year old female with PMH of HTN, DM, and Obesity presenting with bloating and weakness. GI consultation for liver lesion on CT A/P with ongoing treatment of Pneumonia and UTI. Prior colonoscopy endorsed over fifteen years ago to be normal. 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 -Liver biopsy 09/11/18 - results are non conclusive and show necrotic tissue. -normal AFP, and elevated CA 19-9 347 -Hepatitis panel negative, pending autoimmune serologies, iron, TSH -low sodium diet, Ensure TID -Liver biopsy was not diagnostic, we discussed with primary team. We will repeat liver biopsy. -Regarding abnormal colon finding on CT, we will consider colonoscopy for diagnostic/management after diagnostic liver biopsy. -will follow clinical course Case discussed with Dr. Castillo, see attestation. <Vineet Castillo - Last Filed: 09/13/18 19:02> Objective - Vital Signs/Intake and Output Vital Signs (last 24 hours): Temp Pulse Resp BP Pulse Ox 97.2 F L 52 L 20 132/56 L 97 09/13/18 15:37 09/13/18 15:37 09/13/18 15:37 09/13/18 15:37 09/13/18 15:37 - Medications Medications: Current Medications Carvedilol (Coreg) 25 mg PO BID [facility] Last Admin: 09/13/18 09:27 Dose: 25 mg Docusate Sodium (Colace) 100 mg PO BID [facility] Last Admin: 09/13/18 17:15 Dose: 100 mg Metronidazole (Flagyl) 500 mg in 100 mls @ 100 mls/hr IVPB Q8H [facility]; Protocol Last Admin: 09/13/18 14:18 Dose: 100 mls/hr Azithromycin 500 mg/ Sodium (Chloride) 250 mls @ 250 mls/hr IVPB Q24H [facility]; Protocol Last Admin: 09/12/18 22:04 Dose: 250 mls/hr Sodium Chloride (Sodium Chloride 0.9%) 1,000 mls @ 80 mls/hr IV .[id number] [facility] Last Admin: 09/13/18 11:28 Dose: 80 mls/hr Meropenem 500 mg/ Sodium (Chloride) 100 mls @ 100 mls/hr IVPB Q12H [facility]; Protocol Insulin Aspart (Novolog) 0 unit SC ACHS [facility]; Protocol Last Admin: 09/13/18 17:15 Dose: 4 units Insulin Glargine (Lantus) 10 unit SC Q12H [facility] Last Admin: 09/13/18 09:28 Dose: Not Given Pantoprazole Sodium (Protonix Inj) 40 mg IVP DAILY [facility] Last Admin: 09/13/18 14:18 Dose: 40 mg Polyethylene Glycol (Miralax) 17 gm PO BID [facility] Last Admin: 09/13/18 17:15 Dose: Not Given - Labs Labs: 09/12/18 07:12 09/12/18 07:12 PT 14.7 SECONDS (9.7-12.2) H 09/10/18 11:23 INR 1.3 09/10/18 11:23 APTT 30 SECONDS (21-34) 09/08/18 14:44 Attending/Attestation - Attestation I have personally seen and examined this patient.: Yes I have fully participated in the care of the patient.: Yes I have reviewed all pertinent clinical information, including history, physical exam and plan: Yes Notes (Text): 09/13/18 18:59 I have seen and examined patient with GI fellow. No acute events overnight, she is seen resting in bed comfortably. She denies abdominal pain, nausea, vomiting, fever/chills. Now having adequate bowel movements with use of miralax. Tolerating PO diet without difficulty. 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
--- NOTE | 2018-09-13 19:34 | PN ---
DATE: 09/13/2018 SUBJECTIVE: The patient is seen today 09/13/2018. She still has some abdominal bloating sensation. Poor appetite PHYSICAL EXAMINATION: VITAL SIGNS: Blood pressure 147/77, temperature 97.4, respiratory rate 18, and pulse 55. HEENT: Pupils equal, reactive to light. Normal-appearing mucosa of the conjunctivae, oropharynx, and nasal membrane mucosa. NECK: Supple. No JVD, no carotid bruit. No lymph node. No thyromegaly. CHEST AND LUNGS: Bilateral symmetrical expansion. Good air exchange. No rales, no rhonchi. CARDIOVASCULAR SYSTEM: PMI not localized. S1 and S2. No additional sounds. ABDOMEN: Normoactive bowel sounds. No tenderness, no organomegaly. palpable rt. upper quadrant masses. EXTREMITIES: No cyanosis, no clubbing, no edema. CENTRAL NERVOUS SYSTEM: Alert, awake, oriented x2. No neurological deficit could be appreciated. ASSESSMENT: Multiple liver masses suggestive for underlying malignancy, porceline gallbladder, hypertension, type 2 diabetes mellitus with hyperglycemia, pneumonia, urinary tract infection.leucocytosis inspite of multiple antibiotics, likely reactive to malignancy PLAN: Continue current IV antibiotics. We will repeat the liver biopsy as the result of the first liver biopsy was not conclusive. Discussed with the patient's family (2 sons), explained that the imaging studies are highly suggestive for malignancy, with Dr. Castillo as well as with Dr. Oscar Schaffer, the interventional radiologist. The patient is for repeat liver biopsy. We will start physical therapy and consider discharging to transitional care unit to continue IV antibiotics, IV hydration and physical therapy as the patient will be waiting for the repeated liver biopsy. Smitha Gan MD [facility]
--- NOTE | 2018-09-13 20:52 | CP.PCM.PN ---
Subjective - Date & Time of Evaluation Date of Evaluation: 09/13/18 Time of Evaluation: 20:00 - Subjective Subjective: No complaints, sons at bedside Non diagnostic liver lesion biopsy for repeat percutaneous biopsy. Objective - Vital Signs/Intake and Output Vital Signs (last 24 hours): Temp Pulse Resp BP Pulse Ox 97.2 F L 52 L 20 132/56 L 97 09/13/18 15:37 09/13/18 15:37 09/13/18 15:37 09/13/18 15:37 09/13/18 15:37 - Medications Medications: Current Medications Carvedilol (Coreg) 25 mg PO BID [facility] Last Admin: 09/13/18 09:27 Dose: 25 mg Docusate Sodium (Colace) 100 mg PO BID [facility] Last Admin: 09/13/18 17:15 Dose: 100 mg Metronidazole (Flagyl) 500 mg in 100 mls @ 100 mls/hr IVPB Q8H [facility]; Protocol Last Admin: 09/13/18 14:18 Dose: 100 mls/hr Azithromycin 500 mg/ Sodium (Chloride) 250 mls @ 250 mls/hr IVPB Q24H [facility]; Protocol Last Admin: 09/12/18 22:04 Dose: 250 mls/hr Sodium Chloride (Sodium Chloride 0.9%) 1,000 mls @ 80 mls/hr IV .[id number] [facility] Last Admin: 09/13/18 19:00 Dose: Not Given Meropenem 500 mg/ Sodium (Chloride) 100 mls @ 100 mls/hr IVPB Q12H [facility]; Protocol Insulin Aspart (Novolog) 0 unit SC ACHS [facility]; Protocol Last Admin: 09/13/18 17:15 Dose: 4 units Insulin Glargine (Lantus) 10 unit SC Q12H [facility] Last Admin: 09/13/18 09:28 Dose: Not Given Pantoprazole Sodium (Protonix Inj) 40 mg IVP DAILY [facility] Last Admin: 09/13/18 14:18 Dose: 40 mg Polyethylene Glycol (Miralax) 17 gm PO BID [facility] Last Admin: 09/13/18 17:15 Dose: Not Given - Labs Labs: 09/12/18 07:12 09/12/18 07:12 PT 14.7 SECONDS (9.7-12.2) H 09/10/18 11:23 INR 1.3 09/10/18 11:23 APTT 30 SECONDS (21-34) 09/08/18 14:44 - Head Exam Head Exam: ATRAUMATIC - Eye Exam Eye Exam: Normal appearance - ENT Exam ENT Exam: Mucous Membranes Dry - Respiratory Exam Respiratory Exam: NORMAL BREATHING PATTERN - Cardiovascular Exam Cardiovascular Exam: +S1, +S2 - GI/Abdominal Exam GI & Abdominal Exam: Normal Bowel Sounds Assessment and Plan (1) Liver mass Assessment & Plan: s/p percutaneous liver lesion biopsy; non diagnostic - for repat biopsy normal AFP and CEA, elevated CA19-[address] concerning for multiple liver lesions further treatment recommendations based on pathology Status: Acute (2) Anemia Assessment & Plan: 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
[2018-09-13] MEDS: Azithromycin 500 MG in Sodium Chloride 0.9% 250 ML IVPB SCH (22:02)
[2018-09-14] MEDS: metroNIDAZOLE IV 500 mg/100 ml 500 MG/100 ML BAG IVPB SCH ×3 (05:26→21:21)
[2018-09-14] MEDS: (Novolog) Insulin Aspart, Recombinant 100 u/ml 10 ml vial SC SCH ×4 (07:30→21:14)
--- NOTE | 2018-09-14 09:18 | CP.PCM.PN ---
<Low Figueroa - Last Filed: 09/14/18 09:15> Subjective - Date & Time of Evaluation Date of Evaluation: 09/14/18 Time of Evaluation: 09:15 - Subjective Subjective: No acute overnight events. No complaints. Poor appetite. Passing small amount of stool. Liver biopsy today. Objective - Vital Signs/Intake and Output Vital Signs (last 24 hours): Temp Pulse Resp BP Pulse Ox 98.0 F 60 18 155/78 H 99 09/14/18 07:59 09/14/18 07:59 09/14/18 07:59 09/14/18 07:59 09/14/18 07:59 Intake and Output: 09/14/18 09/14/18 06:59 18:59 Intake Total 630 Balance 630 - Medications Medications: Current Medications Carvedilol (Coreg) 25 mg PO BID [facility] Last Admin: 09/13/18 17:15 Dose: Not Given Docusate Sodium (Colace) 100 mg PO BID [facility] Last Admin: 09/13/18 17:15 Dose: 100 mg Metronidazole (Flagyl) 500 mg in 100 mls @ 100 mls/hr IVPB Q8H [facility]; Protocol Last Admin: 09/14/18 05:26 Dose: 100 mls/hr Azithromycin 500 mg/ Sodium (Chloride) 250 mls @ 250 mls/hr IVPB Q24H [facility]; Protocol Last Admin: 09/13/18 22:02 Dose: 250 mls/hr Sodium Chloride (Sodium Chloride 0.9%) 1,000 mls @ 80 mls/hr IV .[id number] [facility] Last Admin: 09/13/18 19:00 Dose: Not Given Meropenem 500 mg/ Sodium (Chloride) 100 mls @ 100 mls/hr IVPB Q12H [facility]; Protocol Last Admin: 09/13/18 23:59 Dose: 100 mls/hr Insulin Aspart (Novolog) 0 unit SC ACHS [facility]; Protocol Last Admin: 09/14/18 07:30 Dose: Not Given Insulin Glargine (Lantus) 10 unit SC Q12H [facility] Last Admin: 09/13/18 22:00 Dose: 10 units Pantoprazole Sodium (Protonix Inj) 40 mg IVP DAILY [facility] Last Admin: 09/13/18 14:18 Dose: 40 mg Polyethylene Glycol (Miralax) 17 gm PO BID [facility] Last Admin: 09/13/18 17:15 Dose: Not Given - Labs Labs: 09/12/18 07:12 09/12/18 07:12 PT 14.7 SECONDS (9.7-12.2) H 09/10/18 11:23 INR 1.3 09/10/18 11:23 APTT 30 SECONDS (21-34) 09/08/18 14:44 - Constitutional Appears: Non-toxic, No Acute Distress - Eye Exam Eye Exam: EOMI, Normal appearance - Respiratory Exam Respiratory Exam: Clear to Ausculation Bilateral, NORMAL BREATHING PATTERN - Cardiovascular Exam Cardiovascular Exam: REGULAR RHYTHM, +S1, +S2 - GI/Abdominal Exam GI & Abdominal Exam: Distended, Soft, Normal Bowel Sounds. absent: Tenderness - Extremities Exam Extremities Exam: Normal Inspection. absent: Pedal Edema - Neurological Exam Neurological Exam: Alert, Awake, Oriented x3 - Psychiatric Exam Psychiatric exam: Normal Affect, Normal Mood - Skin Skin Exam: Normal Color, Warm Assessment and Plan - Assessment and Plan (Free Text) Assessment: 87 year old female with PMH of HTN, DM, and Obesity presenting with bloating and weakness. GI consultation for liver lesion on CT A/P with ongoing treatment of Pneumonia and UTI. Prior colonoscopy endorsed over fifteen years ago to be normal. 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 -Liver biopsy 09/11/18 - results are non conclusive showing necrotic tissue. -normal AFP, and elevated CA 19-9 347 -low sodium diet, Ensure TID -Liver biopsy was not diagnostic, we discussed with primary team. We will repeat liver biopsy. -Regarding abnormal colon finding on CT, we will consider colonoscopy for diagnostic/management after diagnostic liver biopsy. -will follow clinical course Case discussed with Dr. Castillo, see attestation. <Vineet Castillo - Last Filed: 09/14/18 11:36> Objective - Vital Signs/Intake and Output Vital Signs (last 24 hours): Temp Pulse Resp BP Pulse Ox 98.0 F 60 18 155/78 H 99 09/14/18 07:59 09/14/18 07:59 09/14/18 07:59 09/14/18 07:59 09/14/18 07:59 Intake and Output: 09/14/18 09/14/18 06:59 18:59 Intake Total 630 Balance 630 - Medications Medications: Current Medications Carvedilol (Coreg) 25 mg PO BID [facility] Last Admin: 09/13/18 17:15 Dose: Not Given Docusate Sodium (Colace) 100 mg PO BID [facility] Last Admin: 09/13/18 17:15 Dose: 100 mg Metronidazole (Flagyl) 500 mg in 100 mls @ 100 mls/hr IVPB Q8H [facility]; Protocol Last Admin: 09/14/18 05:26 Dose: 100 mls/hr Azithromycin 500 mg/ Sodium (Chloride) 250 mls @ 250 mls/hr IVPB Q24H [facility]; Protocol Last Admin: 09/13/18 22:02 Dose: 250 mls/hr Sodium Chloride (Sodium Chloride 0.9%) 1,000 mls @ 80 mls/hr IV .[id number] [facility] Last Admin: 09/13/18 19:00 Dose: Not Given Meropenem 500 mg/ Sodium (Chloride) 100 mls @ 100 mls/hr IVPB Q12H [facility]; Protocol Last Admin: 09/13/18 23:59 Dose: 100 mls/hr Insulin Aspart (Novolog) 0 unit SC ACHS [facility]; Protocol Last Admin: 09/14/18 07:30 Dose: Not Given Insulin Glargine (Lantus) 10 unit SC Q12H [facility] Last Admin: 09/13/18 22:00 Dose: 10 units Pantoprazole Sodium (Protonix Inj) 40 mg IVP DAILY [facility] Last Admin: 09/13/18 14:18 Dose: 40 mg Polyethylene Glycol (Miralax) 17 gm PO BID [facility] Last Admin: 09/13/18 17:15 Dose: Not Given - Labs Labs: 09/12/18 07:12 09/12/18 07:12 PT 14.7 SECONDS (9.7-12.2) H 09/10/18 11:23 INR 1.3 09/10/18 11:23 APTT 30 SECONDS (21-34) 09/08/18 14:44 Attending/Attestation - Attestation I have personally seen and examined this patient.: Yes I have fully participated in the care of the patient.: Yes I have reviewed all pertinent clinical information, including history, physical exam and plan: Yes Notes (Text): 09/14/18 11:34 I have seen and examined patient with GI fellow. No acute events overnight, she is seen resting in bed comfortably. She denies abdominal pain, nausea, vomiting, fever/chills. Tolerating PO diet without difficulty. HTN/DM Cirrhosis Porcelain gallbladder Hepatic lesions suggestive of metastatic disease - Low sodium diet as tolerated - Patient scheduled for repeat IR guided biopsy today given initial non- diagnostic results - Follow oncology recommendations - Will continue to monitor patient clinical course
[2018-09-14] MEDS: POLYETHYLENE GLYCOL 3350 17 GM/Dose PACKET PO SCH ×2 (10:00→17:27)
[2018-09-14] MEDS: (Lantus) Insulin Glargine, Recombinant SC SCH ×2 (10:00→21:22)
[2018-09-14] MEDS: Meropenem 500 MG in Sodium Chloride 0.9% 100 ML IVPB SCH (11:00)
[2018-09-14] MEDS ORDERED: Absorbable Gelatin Sponge Size 12-7 ONE (11:12)
[2018-09-14] MEDS ORDERED: Midazolam 2 MG/2 ML VIAL ONE (13:18)
[2018-09-14] MEDS ORDERED: Etomidate 20 mg/10ml Inj IV ONE (13:18)
--- NOTE | 2018-09-14 13:36 | PCM.SURG1 ---
Surgeon's Initial Post Op Note - Surgeon's Notes Surgeon: Emile Information Officer: None Type of Anesthesia: IV Sedation, Local Pre-Operative Diagnosis: Liver masses Operative Findings: Liver masses Post-Operative Diagnosis: Liver masses Operation Performed: Liver mass core Bx Specimen/Specimens Removed: Single 18G core bx of R lobe liver mass obtained. Estimated Blood Loss: EBL {In ML}: 2 Date of Surgery/Procedure: 09/14/18 Time of Surgery/Procedure: 13:25
[2018-09-14 14:43] VITALS: RESP 20
--- NOTE | 2018-09-14 15:18 | CP.PCM.CON ---
History of Present Illness - History of Present Illness History of Present Illness: Palliative consult requested by Doctor Nelly for goals of care discussion Patient is a 87 yo female admitted from home with abdominal distention, poor PO intake and nausea X 1 week. During that time , patient stopped her DM meds since she was not ating. In ED her BS was > 500. Patient started on Novolin. CT abdomen was significant for large liver mass. Malignancy was suspected. Bipsy was done and necrotic tissue was discovered rather than malignancy. repeat biopsy is suggested and performed today. UTI, + E Coli, Merrem, Zitromax and Flagyl IV on board. PMH: DM, HTN, Soc. Hx: lives at home, denies tobacco/ETOH use Fam. Hc: brother from cancer years ago Review of Systems - Constitutional Constitutional: absent: As Per HPI, Anorexia, Chills, Daytime Sleepiness, Excessive Sweating, Fatigue, Fever, Frequent Falls, Headache, Increased Appetite, Lethargy, Malaise, Night Sweats, Snoring, Sleep Apnea, Weight Gain, Weight Loss, Weakness, Other - EENT Eyes: absent: As Per HPI, Blind Spots, Blurred Vision, Change in Vision, Decreased Night Vision, Diplopia, Discharge, Dry Eye, Exophthalmos, Floaters, Irritation, Itchy Eyes, Loss of Peripheral Vision, Pain, Photophobia, Requires Corrective Lenses, Sees Flashes, Spots in Vision, Tunnel Vision, Other Visual Disturbances, Loss of Vision, Other Ears: absent: As Per HPI, Decreased Hearing, Ear Discharge, Ear Pain, Tinnitus, Abnormal Hearing, Disequilibrium, Dizziness, Other Nose/Mouth/Throat: absent: As Per HPI, Epistaxis, Nasal Congestion, Nasal Discharge, Nasal Obstruction, Nasal Trauma, Nose Pain, Post Nasal Drip, Sinus Pain, Sinus Pressure, Bleeding Gums, Change in Voice, Dental Pain, Dry Mouth, Dysphagia, Halitosis, Hoarsness, Lip Swelling, Mouth Lesions, Mouth Pain, Odynophagia, Sore Throat, Throat Swelling, Tongue Swelling, Facial Pain, Neck Pain, Neck Mass, Other - Breasts Breasts: absent: As Per HPI, Change in Shape, Mass, Pain, Nipple Discharge, Nipp le Inversion, Skin Changes, Swelling, Other - Cardiovascular Cardiovascular: absent: As Per HPI, Acrocyanosis, Chest Pain, Chest Pain at Rest, Chest Pain with Activity, Claudication, Diaphoresis, Dyspnea, Dyspnea on Exertion, Edema, Irregular Heart Rhythm, Pain Radiating to Arm/Neck/Jaw, Leg Edema, Leg Ulcers, Lightheadedness, Orthopnea, Palpitations, Paroxysmal Nocturnal Dyspnea, Pedal Edema, Radiating Pain, Rapid Heart Rate, Slow Heart Rate, Syncope, Other - Respiratory Respiratory: absent: As Per HPI, Cough, Dyspnea, Hemoptysis, Dyspnea on Exertion, Wheezing, Snoring, Stridor, Pain on Inspiration, Chest Congestion, Excessive Mucous Production, Change in Mucous Color, Pain with Coughing, Other - Gastrointestinal Gastrointestinal: Bloating, Constipation - Genitourinary Genitourinary: absent: As Per HPI, Change in Urinary Stream, Difficulty Urinating, Dysuria, Flank Pain, Hematuria, Pyuria, Nocturia, Urinary Incontinence, Urinary Frequency, Urinary Hesitance, Urinary Urgency, Voiding Freq/Small Amts, Freq UTI, Hx Renal/Bladder Calculi, Hx /Renal Surgery, Bladder Distension, Other - Reproductive: Female Reproductive:Female: Post Menopausal - Menstruation Menstruation: Post Menopausal - Musculoskeletal Musculoskeletal: absent: As Per HPI, Abnormal Gait, Arthralgias, Atrophy, Back Pain, Deformity, Joint Swelling, Limited Range of Motion, Loss of Height, Muscle Cramps, Muscle Weakness, Myalgias, Neck Pain, Numbness, Radiating Pain into Limb, Stiffness, Tingling, Other - Integumentary Integumentary: absent: As Per HPI, Acne, Alopecia, Bleeding Lesions, Change in Hair, Change in Nails, Change in Pigmentation, Changing Lesions, Dry Skin, Erythema, Furuncle, Hirsutism, Lesions, New Lesions, Non-Healing Lesions, Photosensitivity, Pruritus, Rash, Skin Pain, Skin Ulcer, Sores, Striae, Swelling, Unusual Bruising, Wounds, Jaundice, Other - Neurological Neurological: absent: As Per HPI, Abnormal Gait, Abnormal Hearing, Abnormal Movements, Abnormal Speech, Behavioral Changes, Burning Sensations, Confusion, Convulsions, Disequilibrium, Dizziness, Numbness, Focal Weakness, Frequent Falls, Headaches, Lack of Coordination, Loss of Vision, Memory Loss, Paresthesias, Radicular Pain, Restless Legs, Sensory Deficit, Syncope, Tingling, Tremor, Vertigo, Weakness, Other Visual Disturbances, Other - Psychiatric Psychiatric: absent: As Per HPI, Abnormal Sleep Pattern, Anhedonia, Anxiety, Auditory Hallucinations, Behavioral Changes, Change in Appetite, Change in Libido, Confusion, Depression, Difficulty Concentrating, Hallucinations, Homicidal Ideation, Hopelessness, Irritability, Memory Loss, Mood Swings, Panic Attacks, Paranoia, Suicidal Ideation, Visual Hallucinations, Tactile Hallucin ations, Other - Endocrine Endocrine: absent: As Per HPI, Change in Body Appearance, Change in Libido, Cold Intolorance, Deepening of Voice, Excessive Sweating, Fatigue, Flushing, Heat Intolorance, Increase in Ring/Shoe/Hat Size, Palpitations, Polydipsia, Polyph agia, Polyuria, Other - Hematologic/Lymphatic Hematologic: absent: As Per HPI, Easy Bleeding, Easy Bruising, Lymphadenopathy, Other Past Patient History - Past Medical History & Family History Past Medical History?: Yes - Past Social History Smoking Status: Never Smoked - CARDIAC Hx Hypertension: Yes - PULMONARY Hx Respiratory Disorders: No - NEUROLOGICAL Hx Neurological Disorder: No - HEENT Hx HEENT Problems: No - RENAL Hx Chronic Kidney Disease: No - ENDOCRINE/METABOLIC Hx Diabetes Mellitus Type 2: Yes - HEMATOLOGICAL/ONCOLOGICAL Hx Blood Disorders: No - INTEGUMENTARY Hx Dermatological Problems: No - MUSCULOSKELETAL/RHEUMATOLOGICAL Hx Musculoskeletal Disorders: No - GASTROINTESTINAL Hx Gastrointestinal Disorders: No - GENITOURINARY/GYNECOLOGICAL Hx Genitourinary Disorders: No - PSYCHIATRIC Hx Psychophysiologic Disorder: No Hx Substance Use: No - SURGICAL HISTORY Hx Surgeries: No - ANESTHESIA Hx Anesthesia: No Hx Anesthesia Reactions: No Meds Allergies/Adverse Reactions: Allergies Allergy/AdvReac Type Severity Reaction Status Date / Time No Known Allergies Allergy Verified 09/08/18 14:00 - Medications Medications: Current Medications Carvedilol (Coreg) 25 mg PO BID [facility] Last Admin: 09/14/18 10:00 Dose: Not Given Docusate Sodium (Colace) 100 mg PO BID [facility] Last Admin: 09/14/18 10:00 Dose: Not Given Metronidazole (Flagyl) 500 mg in 100 mls @ 100 mls/hr IVPB Q8H [facility]; Protocol Last Admin: 09/14/18 14:27 Dose: 100 mls/hr Azithromycin 500 mg/ Sodium (Chloride) 250 mls @ 250 mls/hr IVPB Q24H [facility]; Protocol Last Admin: 09/13/18 22:02 Dose: 250 mls/hr Sodium Chloride (Sodium Chloride 0.9%) 1,000 mls @ 80 mls/hr IV .[id number] [facility] Last Admin: 09/13/18 19:00 Dose: Not Given Meropenem 500 mg/ Sodium (Chloride) 100 mls @ 100 mls/hr IVPB Q12H [facility]; Protocol Last Admin: 09/14/18 11:00 Dose: Not Given Insulin Aspart (Novolog) 0 unit SC ACHS [facility]; Protocol Last Admin: 09/14/18 12:22 Dose: Not Given Insulin Glargine (Lantus) 10 unit SC Q12H [facility] Last Admin: 09/14/18 10:00 Dose: Not Given Pantoprazole Sodium (Protonix Inj) 40 mg IVP DAILY [facility] Last Admin: 09/14/18 14:30 Dose: 40 mg Polyethylene Glycol (Miralax) 17 gm PO BID [facility] Last Admin: 09/14/18 10:00 Dose: Not Given Physical Exam - Constitutional Appears: Chronically Ill - Head Exam Head Exam: ATRAUMATIC, NORMAL INSPECTION, NORMOCEPHALIC - Eye Exam Eye Exam: EOMI, Normal appearance, PERRL Pupil Exam: NORMAL ACCOMODATION, PERRL - ENT Exam ENT Exam: Mucous Membranes Moist, Normal Exam - Neck Exam Neck exam: Positive for: Normal Inspection - Respiratory Exam Respiratory Exam: Decreased Breath Sounds, NORMAL BREATHING PATTERN - Cardiovascular Exam Cardiovascular Exam: Tachycardia, REGULAR RHYTHM, +S1, +S2 - GI/Abdominal Exam GI & Abdominal Exam: Distended, Hypoactive Bowel Sounds - Rectal Exam Rectal Exam: Deferred - Exam Exam: NORMAL INSPECTION - Extremities Exam Extremities exam: Positive for: normal inspection - Back Exam Back exam: NORMAL INSPECTION - Neurological Exam Neurological exam: Alert, Oriented x3 - Psychiatric Exam Psychiatric exam: Normal Affect, Normal Mood - Skin Skin Exam: Dry, Intact, Normal Color, Warm Results - Vital Signs Recent Vital Signs: Last Vital Signs Temp 97.6 F 09/14/18 14:25 Pulse 54 L 09/14/18 14:25 Resp 20 09/14/18 14:25 BP 129/54 L 09/14/18 14:25 Pulse Ox 97 09/14/18 14:25 - Labs Result Diagrams: 09/12/18 07:12 09/12/18 07:12 Labs: Laboratory Results - last 24 hr 09/13/18 09/13/18 09/14/18 16:20 20:49 06:16 POC Glucose (mg/dL) 206 H 168 H 196 H Assessment & Plan - Assessment and Plan (Free Text) Assessment: Palliative consult Full Code, there is no Advance Directive on chart, PPS 30% I reviewed all medical records, diagnostic studies, examined and interviewed patient in the bed. Patient is alert, oriented X 3 with affect and speech appropriate. Skin and sclera pale, Hb 8.3. Patient reports feeling bloated. On exam, abdomen is largely distended, no bowel sounds auscultated. last BM was before admission. Patient reports food intolerance, but denies nausea, she just feels " full". I reviewed with patient's son last findings on CT abdomen and biopsy results. Him and his two sisters at bed side admitted being worried. Son stated that once patient received IVF in ED she felt more energized. We discussed taking Ice chips as way of hydration if food was not tolerated well, until the final diagnosis was made. Family stated being upset, since patient's dentures were lost . One daughter stated dentures were in green cup yesterday. I made nurse, charge nurse and patient Liaison about this . Family and patient made aware by Maria A family service caseworker that Doctor Malik requested transfer to [facility] [place]. Family was happy to transfer. Impression * Abdominal distention * Liver mass, possible malignancy vs necrosis * Food intolerance * Family is concerned with diagnosis, they fear the worse Suggestion * Offer ice chips as tolerated * Monitor for pain and manage it * IVF at low rate 50 cc/hr * Share diagnostic studies results with family Patient is to be transferred to [facility]. palliative care will sign off at this time.
[2018-09-14 16:37] VITALS: BP 144/76; PULSE 65; TEMP 97.4; O2SAT 99
[2018-09-14 17:07] LABS: BASO % 0.1 % (0.0-2.0); EOS # 0.2 K/uL (0.0-0.7); EOS % 0.9 % (0.0-4.0); HEMOGLOBIN 8.1 g/dL (11.0-16.0); LYMPH # 1.4 K/uL (1.0-4.3); LYMPH % 4.9 % (20.0-40.0); MEAN CELL VOLUME 80.2 fL (81.0-99.0); MEAN CORPUSCULAR HEMOGLOBIN 24.6 pg (27.0-31.0); MEAN CORPUSCULAR HGB CONC 30.7 g/dL (33.0-37.0); MEAN PLATELET VOLUME 8.8 fL (7.2-11.7); MONO # 1.8 K/uL (0.0-0.8); MONO % 6.4 % (0.0-10.0); NEUT # 24.9 K/uL (1.8-7.0); NEUT % 87.7 % (50.0-75.0); NRBC % 0.1 % (0.0-2.0); PLATELET COUNT 226 K/uL (130-400); RBC 3.28 Mil/uL (3.80-5.20); RED CELL DISTRIBUTION WIDTH 17.8 % (11.5-14.5); WHITE BLOOD COUNT 28.4 K/uL (4.8-10.8)
[2018-09-14 17:31] LABS: ALB/GLOB RATIO 0.8 (1.0-2.1); ALBUMIN 2.5 g/dL (3.5-5.0); CALCIUM 9.1 mg/dl (8.6-10.4)
--- NOTE | 2018-09-14 19:40 | PN ---
DATE: 09/14/2018 SUBJECTIVE: The patient is seen today, 09/14/[address]-guided biopsy of the liver masses. PHYSICAL EXAMINATION: VITAL SIGNS: Blood pressure 155/78, temperature 98, respiratory rate 18 and pulse 60. HEENT: Pupils equal, reactive to light. Normal-appearing mucosa of the conjunctivae, oropharynx and nasal membrane mucosa. NECK: Supple. No JVD. No carotid bruit. No lymph node. No thyromegaly. CHEST AND LUNGS: Bilateral symmetrical expansion. Good air exchange. No rales. No rhonchi. CARDIOVASCULAR SYSTEM: PMI not localized. S1 and S2. No additional sounds. ABDOMEN: Normoactive bowel sounds. slight tenderness at the site of the biopsy. EXTREMITIES: No cyanosis. No clubbing. No edema. SENIOR RESERVATIONS AGENT: Alert, awake, oriented x2. Moves all extremities. ASSESSMENT: 1. 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 3. Pneumonia. 4. Urinary tract infection. 5. Persistent leukocytosis, likely reactive. 6. Pre renal azotemia, poor oral intake , PLAN: Continue current IV antibiotics, IV fluids , F/U recommendations of consultants, ID, GI , Hem/Onc and surgery Evaluate the patient for transitional care unit awaiting the biopsy report to continue current management in addition to physical therapy. Smitha Gan MD MTDD
[2018-09-14] MEDS: Sodium Chloride 0.9% 1,000 ML IV SCH (19:45)
[2018-09-14 20:28] LABS: ANISOCYTOSIS SLIGHT; BANDS 9 % (0-2); LYMPHOCYTE 6 % (20-40); MICROCYTOSIS SLIGHT; MONOCYTE 1 % (0-10); NEUTROPHIL 84 % (50-75); PLATELET ESTIMATE NORMAL (NORMAL); TOTAL CELLS COUNTED 100
[2018-09-14 20:29] LABS: HYPOCHROMIC SLIGHT
[2018-09-14] MEDS: Azithromycin 500 MG in Sodium Chloride 0.9% 250 ML IVPB SCH (22:20)
--- NOTE | 2018-09-14 23:01 | CP.PCM.PN ---
Subjective - Date & Time of Evaluation Date of Evaluation: 09/14/18 Time of Evaluation: 23:01 - Subjective Subjective: AFEBRILE SITTING UP ON CHAIR No complaints, sons at bedside Non diagnostic liver lesion biopsy for repeat percutaneous biopsy Today. labs; Reviewed Objective - Vital Signs/Intake and Output Vital Signs (last 24 hours): Temp Pulse Resp BP Pulse Ox 97.4 F L 65 20 144/76 99 09/14/18 15:35 09/14/18 15:35 09/14/18 15:35 09/14/18 17:24 09/14/18 15:35 Intake and Output: 09/14/18 09/15/18 18:59 06:59 Intake Total 580 Balance 580 - Medications Medications: Current Medications Carvedilol (Coreg) 25 mg PO BID [facility] Last Admin: 09/14/18 17:24 Dose: 25 mg Docusate Sodium (Colace) 100 mg PO BID [facility] Last Admin: 09/14/18 17:29 Dose: Not Given Metronidazole (Flagyl) 500 mg in 100 mls @ 100 mls/hr IVPB Q8H [facility]; Protocol Last Admin: 09/14/18 21:21 Dose: 100 mls/hr Azithromycin 500 mg/ Sodium (Chloride) 250 mls @ 250 mls/hr IVPB Q24H [facility]; Protocol Last Admin: 09/14/18 22:20 Dose: 250 mls/hr Sodium Chloride (Sodium Chloride 0.9%) 1,000 mls @ 80 mls/hr IV .[id number] [facility] Last Admin: 09/14/18 19:45 Dose: Not Given Meropenem 500 mg/ Sodium (Chloride) 100 mls @ 100 mls/hr IVPB Q12H [facility]; Protocol Last Admin: 09/14/18 11:00 Dose: Not Given Insulin Aspart (Novolog) 0 unit SC ACHS [facility]; Protocol Last Admin: 09/14/18 21:14 Dose: Not Given Insulin Glargine (Lantus) 10 unit SC Q12H [facility] Last Admin: 09/14/18 21:22 Dose: 10 units Pantoprazole Sodium (Protonix Inj) 40 mg IVP DAILY [facility] Last Admin: 09/14/18 14:30 Dose: 40 mg Polyethylene Glycol (Miralax) 17 gm PO BID [facility] Last Admin: 09/14/18 17:27 Dose: Not Given Zolpidem Tartrate (Ambien) 5 mg PO HS PRN PRN Reason: Insomnia Last Admin: 09/14/18 21:20 Dose: 5 mg - Labs Labs: 09/14/18 17:01 09/14/18 17:01 PT 14.7 SECONDS (9.7-12.2) H 09/10/18 11:23 INR 1.3 09/10/18 11:23 APTT 30 SECONDS (21-34) 09/08/18 14:44 - Constitutional Appears: No Acute Distress - Head Exam Head Exam: NORMAL INSPECTION - Eye Exam Eye Exam: EOMI, PERRL - ENT Exam ENT Exam: Normal Oropharynx - Neck Exam Neck Exam: Normal Inspection - Respiratory Exam Respiratory Exam: Decreased Breath Sounds - Cardiovascular Exam Cardiovascular Exam: REGULAR RHYTHM, +S1, +S2 - GI/Abdominal Exam GI & Abdominal Exam: Distended, Soft, Tenderness (epigastric and right upper quadrant. ) - Extremities Exam Extremities Exam: Normal Capillary Refill. absent: Calf Tenderness, Pedal Edema - Neurological Exam Neurological Exam: Awake, CN II-XII Intact - Psychiatric Exam Psychiatric exam: Normal Mood - Skin Skin Exam: Normal Color, Warm Assessment and Plan (1) Abdominal pain Status: Acute (2) Pneumonia Status: Acute (3) UTI (urinary tract infection) Status: Acute (4) Leukocytosis Status: Acute (5) Liver mass Status: Acute (6) Anemia Status: Acute - Assessment and Plan (Free Text) Plan: ON IV MERREM 500MG IVPB Q 8HRLY 09/11/18 CONTINUE iv ZITHROMAX 500 MG ONCE A DAY DAILY 09/08/18/. ON iv FLAGYL 500 MG EVERY 8 HOURLY 09/10/18. F/U repeat LIVER BX . FAMILY AT BEDSIDE. PATIENT FOR TRANSFER TO [facility] IN A.M. PER CONSULTANTS.
[2018-09-14 23:32] LABS: ARTERIAL BLOOD GAS HCO3 8.6 mmol/L (21-28); ARTERIAL BLOOD GAS O2 SAT 20.6 % (95-98); ARTERIAL BLOOD GAS PCO2 39 mm/Hg (35-45); ARTERIAL BLOOD GAS PH 7.07 (7.35-7.45); ARTERIAL BLOOD GAS PO2 22 mm/Hg (80-100); ARTERIAL BLOOD GAS TCO2 12.5 mmol/L (22-28)
--- NOTE | 2018-09-15 00:25 | CP.PCM.PRO ---
Pronouncement of Note - Clinical Findings Physical Exam: No Response Verbal/Painful Stimuli, Absent Peripheral Puls es{Carotid & Femoral}, Absent Heart & Breath Sounds, No Pupillary Light Reflex, No Corneal Reflex - Pronouncement Time Time of Pronouncement of : 11:27 - Notifications Pronouncement Notifications: Family Notified Cancer Genetic Counselor Notified: No - Autopsy Autopsy Requested: No
--- NOTE | 2018-09-15 09:49 | US ---
Date of procedure: 09/14/2018 Procedure: Ultrasound-guided percutaneous core biopsy of liver mass Medications: 1 milligram Versed, 50 microgram fentanyl, 6 cubic centimeters 1 percent lidocaine HISTORY: Liver Mass TECHNIQUE: Following informed consent and procedure time-out, the patient was placed supine on bed and limited ultrasound showed liver mass within the right hepatic lobe. After the patient abdomen was prepped and draped in the usual sterile fashion and the skin anesthetized with lidocaine, an 18 gauge core needle was advanced percutaneously under direct ultrasound guidance into the mass. Upon confirmation of needle position, 2 core specimens were obtained and sent for routine pathology. The biopsy track was then embolized with Gelfoam. A post biopsy ultrasound performed showed no hematoma. A dressing was applied. IMPRESSION: Ultrasound-guided core biopsy of liver mass.
--- NOTE | 2018-09-17 09:05 | DS ---
REASON FOR ADMISSION: This is an 87-year-old female with history of multiple medical problems, was admitted for anemia, abdominal pain with multiple liver masses. COURSE OF HOSPITALIZATION: The patient was admitted to medical floor and she was started on IV antibiotics as lung infiltration was detected in chest x-ray and urinary tract infection. The patient was also evaluated for the liver masses by a liver CAT scan. The patient was found to have multiple masses in the CAT scan that was suggestive of malignancy. CT-guided biopsy was done by IR that was not conclusive. Repeat biopsy was also done and the diagnosis is pending at the time of this dictation. The patient had an ID consult done by Dr. Chris Valdovinos, gastroenterology consult done by Dr. Castillo, surgical consult done by Dr. Michel Fisher, hematology/oncology consult done by Dr. Alexander Pagan. The patient was kept on IV antibiotics as well as IV hydration due to the prerenal azotemia, due to decreased oral intake. The patient was noticed to be restless and INTER[employer]IVE WE[employer]ELOPER was called as the patient started to become diaphoretic. The patient lost pulse and the patient was coded and family asked to stop the code. The patient was pronounced by the hospitalist. FINAL DIAGNOSES: 1. Metastatic liver disease. 2. Hypertension. 3. Type 2 diabetes mellitus with hyperglycemia. Smitha Gan MD
== END 2018-09-15 01:40 | DRG 435 ==
LOC: C.ER 13:43 → C.6T 18:59
PROVIDERS: ADMIT Internal Medicine; ATTEND Internal Medicine
PROC: 0FB13ZX Excision of Right Lobe Liver, Percutaneous Approach, Diagnostic (ICD-10-PCS; principal; 2018-09-11)
PROC: 0FB13ZX Excision of Right Lobe Liver, Percutaneous Approach, Diagnostic (ICD-10-PCS; 2018-09-14)
DX: C22.8 Malignant neoplasm of liver, primary, unspecified as to type (principal); A41.9 Sepsis, unspecified organism; J18.9 Pneumonia, unspecified organism; I81 Portal vein thrombosis; C78.6 Secondary malignant neoplasm of retroperitoneum and peritoneum; N39.0 Urinary tract infection, site not specified; K90.49 Malabsorption due to intolerance, not elsewhere classified; R18.8 Other ascites; E11.22 Type 2 diabetes mellitus with diabetic chronic kidney disease; E11.65 Type 2 diabetes mellitus with hyperglycemia; E86.0 Dehydration; D63.1 Anemia in chronic kidney disease; I12.9 Hypertensive chronic kidney disease with stage 1 through stage 4 chronic kidney disease, or unspecified chronic kidney disease; N18.9 Chronic kidney disease, unspecified; K82.8 Other specified diseases of gallbladder; D69.6 Thrombocytopenia, unspecified; B96.20 Unspecified Escherichia coli [E. coli] as the cause of diseases classified elsewhere; Z51.5 Encounter for palliative care; K74.60 Unspecified cirrhosis of liver; K75.81 Nonalcoholic steatohepatitis (NASH)